=== PATIENT | female | born 1985 | race Caucasian/White ===

== ENCOUNTER → 2017-05-09 11:44 | Outpatient (CLI) | payer OTHER, BC, SELFPAY ==
--- NOTE | 2017-05-09 11:47 | RAD_ITS ---
STUDY: HYSTEROSALPINGOGRAM. REASON FOR EXAM: Female, 31 years old. Infertility. Prior right ectopic and surgical intervention. FLUOROSCOPY TIME (if supplied): (0:40) minutes/seconds TECHNIQUE: The construction or leak gang laborer performed a hysterosalpingogram. Contrast was injected. Imaging was obtained. COMPARISON: None. FINDINGS: The uterus is unremarkable. The left fallopian tube is widely patent with free spill. The proximal portion of the right fallopian tube is visualized although there is no spill. RAD/Salpingogram IMPRESSION: There is patency and spill of the left fallopian tube. Electronically Signed: Donta Graham MD at 14:11 EST Tel [phone], Service support ,
[2017-05-09 13:08] LABS: hCG Titer Quant., Serum < 1 mIU/mL (<9 non-preg)
== END ==
PROVIDERS: Visit Provider Obstetrics & Gynecology
DX: Z87.59 Personal history of other complications of pregnancy, childbirth and the puerperium (principal); N97.9 Female infertility, unspecified
CPT/HCPCS: 36415; 58340; 74740; 84702; Q9967

== ENCOUNTER → 2017-08-09 13:44 | Outpatient (CLI) | payer OTHER, BC, SELFPAY ==
[2017-08-14 12:08] LABS: HPV Reflexed? NOT INDICATED
== END ==
PROVIDERS: Visit Provider Obstetrics & Gynecology
DX: Z12.4 Encounter for screening for malignant neoplasm of cervix (principal); N39.0 Urinary tract infection, site not specified
CPT/HCPCS: 87086; 87088; 88175; G0145

== ENCOUNTER → 2018-12-08 11:43 | Outpatient (CLI) | payer BC, SELFPAY ==
[2017-01-10 06:25] VITALS: BMI 34.3
[2018-12-08 13:45] LABS: Thyroid Stim Hormone (TSH) 2.45 uIU/mL (0.358-3.74)
== END ==
PROVIDERS: Visit Provider Obstetrics & Gynecology
DX: O26.892 Other specified pregnancy related conditions, second trimester (principal); R00.0 Tachycardia, unspecified; Z3A.00 Weeks of gestation of pregnancy not specified
CPT/HCPCS: 36415; 84443

== ENCOUNTER → 2018-12-17 15:57 | Outpatient (CLI) | payer BC, OTHER, SELFPAY ==
[2017-01-10 06:25] VITALS: BMI 34.3
[2018-12-17 17:23] LABS: Hematocrit 37.1 % (37-47); Hemoglobin 12.7 g/dL (12.0-15.0); Mean Corp Hgb Conc 34.2 g/dL (32-36); Mean Corpuscular Hgb 31.3 pg (27.0-32.0); Mean Corpuscular Volume 91.4 fL (81-99); Mean Platelet Vol. 9.8 fl (6.2-12.0); Platelet Count 258 K/mm3 (150-450); RBC Distribution Width CV 13.1 % (11.6-14.6); RBC Distribution Width SD 43.4 fl (35.1-43.9); Red Blood Count 4.06 M/mm3 (4.2-5.4); White Blood Count 11.1 K/mm3 (4.4-11.0)
[2018-12-17 17:30] LABS: Glucose Challenge Gest 1H 50g 137 mg/dL (70-140)
== END ==
PROVIDERS: Visit Provider Obstetrics & Gynecology
DX: Z34.83 Encounter for supervision of other normal pregnancy, third trimester (principal)
CPT/HCPCS: 36415; 82950; 85027

== ENCOUNTER → 2019-01-14 12:50 | Outpatient (CLI) | payer OTHER, SELFPAY | PROVIDERS: Referring Provider Advanced Practice Midwife; Visit Provider Advanced Practice Midwife | DX: O26.893 Other specified pregnancy related conditions, third trimester (principal); I47.1 Supraventricular tachycardia; Z3A.00 Weeks of gestation of pregnancy not specified | CPT/HCPCS: 93225; 93226 ==

== ENCOUNTER 2019-01-20 20:05 | Outpatient (CLI) | payer OTHER, SELFPAY ==
[2019-01-20 20:25] VITALS: BMI 39.2
[2019-01-20 20:32] LABS: Mucous, Urine 0 SEEN /hpf (<or=2+); Red Blood Cells-Urine 0 SEEN /hpf (0-5)
[2019-01-20 20:37] LABS: Color, Urine Yellow (Yellow); Glucose, Dipstick Normal (Normal); Ketone-Dipstick Negative (Negative); Leukocyte Esterase-Dipstick 25 /ul (Negative); Nitrite-Dipstick Positive (Negative); Occult Blood-Urine Negative /ul (Negative); Protein-Dipstick Negative (Negative); Specific Gravity, Urine 1.015 (1.002-1.030); Urine Bilirubin Dipstick Negative (Negative); Urine Clarity Clear (Clear); Urine Urobilinogen Normal (Normal); Urine pH 6.5 (5.0 - 8.0)
[2019-01-20 20:42] LABS: Squamous Epithelial Cells - UA 0-5 SEEN /hpf (5-10); White Blood Cells 0-5 SEEN /hpf (0-5)
[2019-01-20 20:43] LABS: Bacteria RARE /hpf (None Seen)
[2019-01-20] MEDS: Ceftriaxone 1 GM/50 ML BAG IV (21:47)
[2019-01-20 21:58] LABS: Absolute Lymphocyte Count 2.73 X10^3/uL (0.83-4.51); Absolute Neutrophil Count 6.3 X10^3/uL (2.0-7.7); Basophil# 0.03 X10^3/uL; Basophil% 0.3 % (0-1); Eosinophil# 0.25 X10^3/uL; Eosinophils% 2.4 % (0-5); Hematocrit 37.6 % (37-47); Hemoglobin 13.2 g/dL (12.0-15.0); Lymphocyte # 2.73 X10^3/ul (4.0); Lymphocyte % 26.3 % (19-41); Mean Corp Hgb Conc 35.1 g/dL (32-36); Mean Platelet Vol. 9.6 fl (6.2-12.0); Monocyte# 0.95 X10^3/uL; Monocyte% 9.1 % (0-10); NRBC Flagged by Analyzer 0 % (0-5); Neutrophil # 6.32 X10^3/uL (2.7-7.7); Neutrophil % 60.8 % (47-70); Platelet Count 271 K/mm3 (150-450); RBC Distribution Width CV 12.7 % (11.6-14.6); RBC Distribution Width SD 41.8 fl (35.1-43.9); Red Blood Count 4.13 M/mm3 (4.2-5.4); White Blood Count 10.4 K/mm3 (4.4-11.0)
[2019-01-20 22:26] VITALS: BP 142/84; PULSE 98; RESP 16; TEMP 37.3
--- NOTE | 2019-01-23 09:06 | OB.TRI.NOTE ---
- Problem List (1) Acute cystitis Status: Resolved Qualifiers: Hematuria presence: without hematuria Qualified Code(s): N30.00 - Acute cystitis without hematuria (2) False labor before 37 completed weeks of gestation Status: Resolved Qualifiers: Trimester: third trimester Qualified Code(s): O47.03 - False labor before 37 completed weeks of gestation, third trimester History of Present Illness Date of Service: 01/20/19 Was patient seen by the physician?: Yes Reason For Visit: BACK PAIN Final BRIAN: 03/15/19 Gestational age: 34 Weeks and 4 Days History of Present Illness: 33yo @ 32 2/7wga with c/o cramping and back pain. Allergies vancomycin Allergy (Intermediate, Verified 01/28/19 11:10) Itching - Pertinent Past Medical History Medical History: Past Medical History (Last Reviewed 01/28/19 @ 12:01 by Robert De La Rosa MD) Palpitations (Acute) False labor before 37 completed weeks of gestation (Resolved) BRCA gene mutation positive Acute cystitis (Resolved) Surgical History: Past Surgical History (Last Reviewed 01/28/19 @ 12:01 by Robert De La Rosa MD) History of bilateral mastectomy with reconstruction @ age 23 History of open reduction and internal fixation (ORIF) procedure left clavicle and then removal of hardware at a later date History of salpingectomy right History of tonsillectomy Laboratory Studies: Laboratory Tests 01/20/19 01/20/19 Range/Units 21:16 20:20 WBC 10.4 (4.4-11.0) K/mm3 RBC 4.13 L (4.2-5.4) M/mm3 Hgb 13.2 (12.0-15.0) g/dL Hct 37.6 (37-47) % MCV 91.0 (81-99) fL MCH 32.0 (27.0-32.0) pg MCHC 35.1 (32-36) g/dL RDW Std Deviation 41.8 (35.1-43.9) fl RDW Coeff of Tae 12.7 (11.6-14.6) % Plt Count 271 (150-450) K/mm3 MPV 9.6 (6.2-12.0) fl Immature Gran % (Auto) 1.100 H (0.0-0.9) % Neut % (Auto) 60.8 (47-70) % Lymph % (Auto) 26.3 (19-41) % [place] % (Auto) 9.1 (0-10) % Eos % (Auto) 2.4 (0-5) % Baso % (Auto) 0.3 (0-1) % Absolute Neuts (auto) 6.3 (2.0-7.7) X10^3/uL Absolute Lymphs (auto) 2.73 (0.83-4.51) X10^3/uL Nucleated RBC % 0 (0-5) % Urine Color Yellow (Yellow) Urine Clarity Clear (Clear) Urine pH 6.5 (5.0 - 8.0) Ur Specific [place] 1.015 (1.002-1.030) Urine Protein Negative (Negative) mg/dl Urine Glucose (UA) Normal (Normal) mg/dl Urine Ketones Negative (Negative) mg/dl Urine Occult Blood Negative (Negative) /ul Urine Nitrite Positive H (Negative) Urine Bilirubin Negative (Negative) mg/dL Urine Urobilinogen Normal (Normal) mg/dl Ur Leukocyte Esterase 25 H (Negative) /ul Urine RBC 0 SEEN (0-5) /hpf Urine WBC 0-5 SEEN (0-5) /hpf Ur Squamous Epith Cells 0-5 SEEN (5-10) /hpf Urine Bacteria RARE (None Seen) /hpf Urine Mucus 0 SEEN (<or=2+) /hpf Review of Systems Constitutional: Denies: Chills, Fever Gastrointestinal: Denies: Nausea, Vomiting Physical Exam Vitals: Vital Signs Temp Pulse Resp BP 99.2 F H 98 16 142/84 H 01/20/19 22:26 01/20/19 22:26 01/20/19 22:26 01/20/19 22:26 General: Alert, Oriented x3, Cooperative, No apparent distress HEENT: Atraumatic, Normocephalic Cardiovascular: Regular Rhythm Abdomen: Soft, Non Tender, Non-Distended Neurological: Neuro grossly intact NST - FHR Rate Baby A Baseline: 135 Variability:: Moderate Accelerations:: 15 x 15 Decelerations:: None FHR Category:: Category I Uterine Activity:: irritability Impression/Plan UTI - Dx acute cystitis -Rx antibiotics -d/c home
== END 2019-01-20 22:40 | disposition home or self-care (01) ==
PROVIDERS: Visit Provider Obstetrics & Gynecology
DX: O23.13 Infections of bladder in pregnancy, third trimester (principal); O47.03 False labor before 37 completed weeks of gestation, third trimester; Z3A.32 32 weeks gestation of pregnancy
CPT/HCPCS: 96365; 36415; 59025; 59050; 81001; 85025; 87086; 87088; 99218; J7040; G0378

== ENCOUNTER → 2019-02-10 13:44 | Outpatient (CLI) | payer OTHER, SELFPAY ==
[2019-01-28 11:10] VITALS: BMI 39.2
--- NOTE | 2019-02-10 13:47 | ECHOD_ITS ---
Reason For Study: Palpitations Procedure This was a 2D Doppler, Color Flow transthoracic echocardiogram. Unable to utilize Definity. Patient is 35 weeks . Exam performed in department. Left Ventricle Normal size and thickness. The estimated ejection fraction is 55 %. No evidence for diastolic dysfunction. No regional wall motion abnormalities noted. Right Ventricle Normal RV size. Normal systolic function. Atria Normal left atrium. Normal right atrium. No doppler evidence for ASD. Mitral Valve There is no mitral valve stenosis. No mitral valve insufficiency. Tricuspid Valve There is no tricuspid stenosis. Trivial tricuspid valve insufficiency. Normal pulmonary artery pressure. Aortic Valve Trisinus/trileaflet aortic valve. There is no aortic stenosis. Trivial aortic valve insufficiency. Pulmonic Valve There is no pulmonic valvular stenosis. Trivial pulmonic valve insufficiency. Great Vessels Normal aortic root. Pericardium/Pleural No pericardial effusion. MMode/2D Measurements & Calculations LVIDd: 4.0 cm IVSd: 1.3 cm LA dimension: 3.6 cm LVIDs: 2.7 cm LVPWd: 0.90 cm RVDd: 3.8 cm FS: 32.5 % LAV(MOD-bp): 44.6 ml LA A4 area: 16.0 cm2 RA A4 area: 13.5 cm2 LAV(MOD-bp) Indexed: 19.6 ml/m2 LAV(MOD-sp2): 44.2 ml LAV(MOD-sp4): 41.2 ml Time Measurements MV dec time: 0.25 sec Doppler Measurements & Calculations MV E max dick: 64.7 cm/sec Lat Peak E' Dick: 7.7 cm/sec Med Peak E' Dick: 6.3 cm/sec MV A max dick: 77.0 cm/sec E/E' lat: 8.4 E/E' med: 10.2 MV E/A: 0.84 MV V2 max: 87.4 cm/sec MV P1/2t max dick: 79.3 cm/sec Ao V2 max: 101.8 cm/sec MV max P.1 mmHg MV P1/2t: 85.6 msec Ao max P.1 mmHg MV V2 mean: 52.9 cm/sec MV dec slope: 271.3 cm/sec2 MV mean P.3 mmHg MVA(P1/2t): 2.6 cm2 MV V2 VTI: 21.3 cm LV V1 max: 103.0 cm/sec PA V2 max: 88.6 cm/sec PI end-d dick: 120.4 cm/sec LV V1 max P.2 mmHg TR max dick: 214.3 cm/sec TR max P.4 mmHg Interpretation Summary The estimated ejection fraction is 55 %. No evidence for diastolic dysfunction. Trivial aortic valve insufficiency. Ordering Physician: Robert De La Rosa Referring Physician: Robert De La Rosa Performed By: Carlos A Scott RCS
[2019-02-10 15:58] LABS: Glucose Challenge Gest 1H 50g 119 mg/dL (70-140)
== END ==
LOC: CVS 13:47 → WOBLAB 15:23
PROVIDERS: Referring Provider Specialist; Visit Provider Obstetrics & Gynecology
DX: O26.893 Other specified pregnancy related conditions, third trimester (principal); R00.2 Palpitations; Z3A.00 Weeks of gestation of pregnancy not specified
CPT/HCPCS: 36415; 82950; 93306

== ENCOUNTER → 2019-02-19 15:02 | Outpatient (CLI) | payer OTHER, SELFPAY ==
[2019-02-11 14:34] VITALS: BMI 39.2
== END ==
PROVIDERS: Visit Provider Obstetrics & Gynecology
DX: Z36.85 Encounter for antenatal screening for Streptococcus B (principal)
CPT/HCPCS: 87081

== ENCOUNTER 2019-02-28 11:05 | Observation (INO) | payer OTHER, SELFPAY ==
[2019-02-11 14:34] VITALS: BMI 39.2
[2019-02-28 02:11] VITALS: BMI 40.1
--- NOTE | 2019-02-28 02:53 | OB.TRI.NOTE ---
History of Present Illness Date of Service: 02/28/19 Was patient seen by the physician?: Yes Reason For Visit: R/O LABOR Date of Service: 02/28/19 Final BRIAN: 03/15/19 Final BRIAN Source: US <20 weeks Gestational age: 37 Weeks and 6 Days History of Present Illness: Pt is a 33yo at 37w6d gestation by L=10w5d US who states she woke up around midnight with sharp pain in her upper right side, so painful that she could not walk or breathe deeply; she further states that she is not feeling the baby move as much as she is accustomed to feeling; when pt arrived at hospital she began to feel painful contractions that she rates 7-8/10; she no longer feels the sharp r-sided pain, but abdomen is mildly tender in that area; this is significant for hx of embryo transfer, anterior placenta, polyhydramnios, AGA, and L renal pyelectasis; she has been seeing MFM regularly and surveillance in 3rd trimester has shown reactive NSTs and BPPs /8, the most recent of which was performed on 02/26/2019; during this she experienced cardiac palpitations. A holter evaluation was equivocal, and a cardiac echo showed EF 55% and trivial aortic insufficiency; pt is positive for BRCA2 and underwent a bilateral mastectomy with reconstruction 10 years ago. Allergies vancomycin Allergy (Intermediate, Verified 02/28/19 02:13) Hives - Pertinent Past Medical History Medical History: Past Medical History (Last Reviewed 02/11/19 @ 15:14 by Robert De La Rosa MD) Palpitations (Acute) False labor before 37 completed weeks of gestation (Resolved) BRCA gene mutation positive Acute cystitis (Resolved) Surgical History: Past Surgical History (Last Reviewed 02/11/19 @ 15:14 by Robert De La Rosa MD) History of bilateral mastectomy with reconstruction @ age 23 History of open reduction and internal fixation (ORIF) procedure left clavicle and then removal of hardware at a later date History of salpingectomy right History of tonsillectomy Pertinent Past Medical History: History of cardiac palpitations with this , holter monitor evaluation equivocal, cardiac echo results = ef 55%, and trivial arotic valve insufficiency, otherwise WNL: Physical Exam General: Alert, Oriented x3, Cooperative HEENT: PERRLA, EOMI Cardiovascular: Regular rate, Regular Rhythm Lungs: Clear to auscultation, Normal air movement Abdomen: Bowel Sounds Present, Soft, Non Tender, Passing Flatus, Gravid, Distended - Polyhydramnios, Tender Neurological: Cranial nerves II-XII grossly intact, Deep Tendon Reflexes 2+/4 and Symmetrical Estimated gestational size: Large for gestational age Presentation: Cephalic Cervix Dilation (cm): 2 Station: -3 Effacement (%): 50 NST - FHR Rate Baby A Baseline: 145 Variability:: Moderate Accelerations:: 15 x 15 Decelerations:: None NST Reactive:: Yes, Appropriate for gestational age FHR Category:: Category I Uterine Activity:: Q 2-4 Impression/Plan Impression: 33yo at 37w6d gestation by 10w5d US R/o labor Hx of embryo transfer w/this Polyhydramnios L renal pyelectasis Maternal hx cardiac palpitations, holter equivocal, cardiac echo reassuring GBS negative Cat 1 FHTs Plan: Notified Dr. Hardy of pts arrival PO hydration Continuous EFM Recheck cervix in 2-3 hours Notify pediatrics if pt is ruled in for labor Dr. Hardy to manage if ruled in for labor
[2019-02-28] MEDS: Acetaminophen 500 MG Tablet 1000 MG PO (04:01)
[2019-02-28] MEDS: morphine 10 MG/ML Syringe 5 MG IM (06:21)
[2019-02-28] MEDS: morphine 10 MG/ML Syringe 5 MG IV (06:22)
[2019-02-28 06:56] LABS: Absolute Lymphocyte Count 2.53 X10^3/uL (0.83-4.51); Absolute Neutrophil Count 8.1 X10^3/uL (2.0-7.7); Basophil# 0.04 X10^3/uL; Basophil% 0.3 % (0-1); Eosinophil# 0.24 X10^3/uL; Hematocrit 38.9 % (37-47); Hemoglobin 13.7 g/dL (12.0-15.0); Lymphocyte # 2.53 X10^3/ul (4.0); Lymphocyte % 21.5 % (19-41); Mean Corp Hgb Conc 35.2 g/dL (32-36); Mean Corpuscular Hgb 31.8 pg (27.0-32.0); Mean Corpuscular Volume 90.3 fL (81-99); Monocyte# 0.81 X10^3/uL; Monocyte% 6.9 % (0-10); NRBC Flagged by Analyzer 0 % (0-5); Neutrophil # 8.05 X10^3/uL (2.7-7.7); Neutrophil % 68.6 % (47-70); Platelet Count 292 K/mm3 (150-450); RBC Distribution Width CV 12.7 % (11.6-14.6); RBC Distribution Width SD 41.8 fl (35.1-43.9); Red Blood Count 4.31 M/mm3 (4.2-5.4); White Blood Count 11.8 K/mm3 (4.4-11.0)
--- NOTE | 2019-02-28 07:35 | PCM.PN.BLA ---
Progress Note PROGRESS NOTE -- 37 6/7 wk EGA by first trimester sono. V5C2WM2 , CHAPITO . Arrived approx 0130 am for CC of pain in RUQ and of dec movement, evaluation of labor. Reviewed EFM and contraction pattern approx 5:30 am. EFM 130-140s avg variability. Accels. Category I tracing UCs q 2-4 mins Minimal change as of last cervix check. 0502 CX: 2/50/-3 A/P: 33yo at 37w6d gestation by 10w5d US Hx of embryo transfer w/this Polyhydramnios L renal pyelectasis Maternal hx cardiac palpitations, holter equivocal, cardiac echo reassuring GBS negative Prodromal labor vs false labor with continued UCs no cervix change. Offered: 1.) IV to S/L and lab draw in case true labor. +/- Pain med to allow rest. Will either awake in more active labor or remain unchanged after rest Morphine sulfate 5 mg IM and 5 mg IV times one. 2.) May continue observation only without IV/IM pain meds or S/L start. 3.) May go home and return if more uncomfortable. Patient elected to try IV/IM pain meds for rest , and have labs sent. Will recheck cervix if patient awake, uncomfortable within 2-3 hrs otherwise allow rest until patient awakes, then recheck
--- NOTE | 2019-02-28 08:50 | PN.OBGYN_ITS ---
Subjective: This is a late entry for February 29 2016, 0525 Per RN, pt continues to experience frequent, painful contractions; bedside and supportive Objective: AVSS FHTs: 145 baseline, moderate variability, with accels, no decels UCs: Q 12-3 Cervix: Minimal change per RN - Physical Exam Vitals/I&O's: Weight: 264 lb 1.82 oz Body Mass Index (BMI) 40.1 Laboratory Results 02/28/19 06:20: WBC 11.8 H, RBC 4.31, Hgb 13.7, Hct 38.9, MCV 90.3, MCH 31.8, MCHC 35.2, RDW Std Deviation 41.8, RDW Coeff of Tae 12.7, Plt Count 292, MPV 10.0, Immature Gran % (Auto) 0.700, Neut % (Auto) 68.6, Lymph % (Auto) 21.5, [place] % (Auto) 6.9, Eos % (Auto) 2.0, Baso % (Auto) 0.3, Absolute Neuts (auto) 8.1 H, Absolute Lymphs (auto) 2.53, Nucleated RBC % 0 Medical Necessity - Tobacco Use Smoking Status: Never smoker Assessment/Plan All Active Problems (Last Reviewed 02/11/19 @ 15:14 by Robert De La Rosa MD) Palpitations (Acute) False labor before 37 completed weeks of gestation (Resolved) Acute cystitis (Resolved) Assessment:Impression: 33yo at 37w6d gestation by 10w5d US R/o labor Hx of embryo transfer w/this Polyhydramnios L renal pyelectasis Maternal hx cardiac palpitations, holter equivocal, cardiac echo reassuring GBS negative Cat 1 FHTs Plan: Care assumed by Dr. Hardy IV saline lock Admission labs for potential of admission
[2019-02-28] MEDS: Ondansetron 4 MG/2 ML Vial IV (09:53)
[2019-02-28] MEDS: Lactated Ringers 1,000 ML 50 ML IV (11:00)
--- NOTE | 2019-02-28 11:11 | HP.PCM_ITS ---
History and Physical Date of Admission: 02/28/19 OB HISTORY AND PHYSICAL EXAMINATION History of this : 33 yo female Ab1 with EDC 03/15/2019 by Ultrasound, presents to Labor and Delivery early this am with CC of UCs, painful in RUQ and decreased movement. 37 6/7 wk with LGA fetus, Polyhydramnios (resolved) Continued observation for contractions with trial of IV and IM narcotic for rest during prodromal labor. States not able to rest, and no sleep since prior to 8 am 02/27/19. With continued observation, minimal change of cervix from 2 cm to now 3 cm/65% noted. BBOW noted with exam during UC per RN. Will admit for labor. care remarkable for - Blood Type - A POSITIVE Rubella - IMMUNE 08/22/18 1.) Polyhydramnios (resolved, last NEPTALI 12 cm) and LGA per MFM -- weekly BPP; Growth q 4 weeks with MFM 2.) BRCA 2+, bilateral mastectomy with reconstruction age 23, 3.) Prior ectopic 4.) Stress level 5/5, due to job 5.) Aunt born with cleft lip, Two 1st cousins with Autism 6.) achieved with IVF - Embryo Transfer Genetic testing performed at [facility]; declined msAFP 7.) L renal pyelectasis, last measurement 8.7 mm 02/19/19 with MFM Pertinent Past Medical History: Breast/Ovarian/Colon Cancers - Paternal Grandmother had Breast Cancer approximately age 60-70 and Paternal Grandmother had Uterine Cancer approximately age 60-70 Infections - Chicken pox Illnesses - BRAC2 carrier, Accidents - None History of Abnormal PAPS - Denies Hospitalizations - see surgery SURGICAL HISTORY: 1. HSG 04/2017 2. 2003 (L) Clavicle Surgery 3. 2009 Bilateral Mastectomy w/Reconstruction 4. 2013 RS 5. 01/10/2017 Suction D and C, Dx lap, linear left salpingostomy and Removal of ectopic Jose Crowley M.D. 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 no gush of fluid. PHYSICAL EXAMINATION General Appearance: 33 yo female in no acute distress Vital Signs: AF, VSS Lungs: Regular respiratory rate, rhythm Breasts: deferred Abdomen: gravid Cervix: 3/65/-2 Presentation: cephalic Size: LGA approx 9# Movement: present Heart: present Category I tracing. UCs q 1-3 mins. Impression /Plan: Intrauterine . 37 6/7 wk LGA fetus. Prodromal labor with progress noted and continued , regular UCs despite attempt at rest.. hydronephrosis. Admit for labor and delivery. Plans epidural for labor and to allow rest. Begin IV hydration for epidural. If contractions improve with IV hydration, will discharge home. Patient seen and examined at time of this note. See progress notes for additional changes Genie Hardy MD 02/28/19 1128
== END 2019-02-28 16:30 | disposition home or self-care (01) ==
LOC: WPOUT 11:06 → WP 03-02 09:59
PROVIDERS: Admitting Provider Obstetrics & Gynecology; Referring Provider Obstetrics & Gynecology; Visit Provider Obstetrics & Gynecology
DX: O62.9 Abnormality of forces of labor, unspecified (principal); Z3A.37 37 weeks gestation of pregnancy; O35.8XX0 Maternal care for other (suspected) fetal abnormality and damage, not applicable or unspecified; O40.3XX0 Polyhydramnios, third trimester, not applicable or unspecified; O36.8130 Decreased fetal movements, third trimester, not applicable or unspecified; O36.63X0 Maternal care for excessive fetal growth, third trimester, not applicable or unspecified
CPT/HCPCS: 96374; 96375; 59025; 59050; 85025; 86850; 86900; 86901; 96372; 99218; J7120; G0378; J2405

== ENCOUNTER 2019-03-01 16:30 | Inpatient (IN) | payer OTHER, SELFPAY ==
[2019-01-28 11:10] VITALS: BMI 39.2
[2019-02-28 02:11] VITALS: BMI 40.1
[2019-03-01 17:04] VITALS: BMI 40.3
[2019-03-01 17:42] LABS: ROM Internal Control Test YES-OK TO RESULT pt. (Internal QC)
[2019-03-01 17:43] LABS: ROM Patient Test POSITIVE (Negative)
[2019-03-01] MEDS: Lactated Ringers 1,000 ML 50 ML IV (18:11)
--- NOTE | 2019-03-01 18:20 | PCM.HPOB.BLA ---
History and Physical Date of Admission: 03/01/19 OB HISTORY AND PHYSICAL EXAMINATION History of this : 33 yo female Ab1 with EDC 03/15/2019 by Ultrasound, presents to Labor and Delivery early this am with CC of possible SROM this afternoon at 3:30 pm. Also with continued UCs, painful in lower abdomen now. 38 wk with LGA fetus, Polyhydramnios (resolved) ROM test POSITIVE. care remarkable for - Blood Type - A POSITIVE Rubella - IMMUNE 08/22/18 1.) Polyhydramnios (resolved, last NEPTALI 12 cm) and LGA per MFM -- weekly BPP; Growth q 4 weeks with MFM 2.) BRCA 2+, bilateral mastectomy with reconstruction age 23, 3.) Prior ectopic 4.) Stress level 5/5, due to job 5.) Aunt born with cleft lip, Two 1st cousins with Autism 6.) achieved with IVF - Embryo Transfer Genetic testing performed at [facility]; declined msAFP 7.) L renal pyelectasis, last measurement 8.7 mm 02/19/19 with MFM Pertinent Past Medical History: Breast/Ovarian/Colon Cancers - Paternal Grandmother had Breast Cancer approximately age 60-70 and Paternal Grandmother had Uterine Cancer approximately age 60-70 Infections - Chicken pox Illnesses - BRAC2 carrier, Accidents - None History of Abnormal PAPS - Denies Hospitalizations - see surgery SURGICAL HISTORY: 1. HSG 04/2017 2. 2003 (L) Clavicle Surgery 3. 2009 Bilateral Mastectomy w/Reconstruction 4. 2013 RS 5. 01/10/2017 Suction D and C, Dx lap, linear left salpingostomy and Removal of ectopic Jose Crowley M.D. 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 no gush of fluid. PHYSICAL EXAMINATION General Appearance: 33 yo female in no acute distress Vital Signs: AF, VSS Lungs: Regular respiratory rate, rhythm Breasts: deferred Abdomen: gravid Cervix: 3/60/-3 Presentation: cephalic Size: LGA approx 9# Movement: present Heart: present 130-150s avg variability , accels. Occasional early decel Category I tracing. UCs irregular, q 4-11 mins. Impression /Plan: Intrauterine . 38 wk EGA + SROM. Admitted in early labor with LGA fetus. Epidural placed per pt request 2/2 pain Position changes, Iqbal when comfortable w/ recheck cervix. Consider IUPC as no change from prior observation other than +ROM. Consider pitocin prn.
[2019-03-01] MEDS: Lactated Ringers 500 ML 999 ML IV (18:23)
[2019-03-01] MEDS: Nalbuphine 10 MG/ML Ampul IV (18:29)
[2019-03-01 18:30] LABS: Absolute Lymphocyte Count 1.93 X10^3/uL (0.83-4.51); Absolute Neutrophil Count 8.2 X10^3/uL (2.0-7.7); Basophil# 0.03 X10^3/uL; Basophil% 0.3 % (0-1); Eosinophil# 0.14 X10^3/uL; Eosinophils% 1.2 % (0-5); Hematocrit 40.1 % (37-47); Hemoglobin 14.2 g/dL (12.0-15.0); Lymphocyte # 1.93 X10^3/ul (4.0); Lymphocyte % 17.2 % (19-41); Mean Corp Hgb Conc 35.4 g/dL (32-36); Mean Corpuscular Hgb 31.8 pg (27.0-32.0); Mean Corpuscular Volume 89.9 fL (81-99); Mean Platelet Vol. 9.9 fl (6.2-12.0); Monocyte# 0.89 X10^3/uL; Monocyte% 7.9 % (0-10); NRBC Flagged by Analyzer 0 % (0-5); Neutrophil # 8.19 X10^3/uL (2.7-7.7); Neutrophil % 72.9 % (47-70); Platelet Count 309 K/mm3 (150-450); RBC Distribution Width CV 12.6 % (11.6-14.6); RBC Distribution Width SD 41.6 fl (35.1-43.9); Red Blood Count 4.46 M/mm3 (4.2-5.4); White Blood Count 11.2 K/mm3 (4.4-11.0)
[2019-03-01] MEDS: fentaNYL-bupivacaine (epidural) 100 ML BAG EPIDURAL (20:02)
[2019-03-01] MEDS: 0.9% Saline Lock 10 ML Syringe IV (22:08)
[2019-03-01] MEDS: Ondansetron 4 MG/2 ML Vial IV (22:08)
[2019-03-02] VITALS (15 sets, daily range): BP systolic 112–134; BP diastolic 58–75; PULSE 111–130; RESP 18–20; TEMP 36.9–37.6; O2SAT 96–100
[2019-03-02] MEDS: Lactated Ringers 1,000 ML 200 ML IV ×2 (00:10→06:08)
[2019-03-02] MEDS: fentaNYL-bupivacaine (epidural) 100 ML BAG EPIDURAL ×2 (00:10→05:25)
--- NOTE | 2019-03-02 00:59 | PCM.PN.BLA ---
Progress Note LABOR PROGRESS NOTE Epidural in place AVSS No pitocin IFM: 140s - 150s avg variability accels noted UCs q 2-5 mins. CX: /-2 per RN last check. A/P 38 1/7 wk EGA SROM Spontaneous labor. Continue labor Anticipate . Adequate progress from /-2 on admission.
[2019-03-02] MEDS: proCHLORPERazine 10 MG/2 ML Vial IV (01:54)
[2019-03-02] MEDS: 0.9% Saline Lock 10 ML Syringe IV (01:54)
[2019-03-02] MEDS: Oxytocin 30 units/NS 500 ml 30 UNITS/500 ML IV.SOLN IV (04:07)
[2019-03-02] MEDS: Lactated Ringers 500 ML 999 ML IV (04:33)
[2019-03-02] MEDS: Acetaminophen 325 MG Tablet PO (06:06)
[2019-03-02] MEDS: Amnioinfusion- 0.9% NS 1,000 ML IV.SOLN. 1000 ML INTRA-UTER (08:09)
--- NOTE | 2019-03-02 08:48 | PCM.PN.BLA ---
Progress Note LABOR PROGRESS Pt with low grade fever now. tachycardia 170-180s Tylenol given and conitnued temp IFM: 170-180s with small accels good variability Variables to 90-120s with UCs and with pushing most under 1 min duration. UCs appear inadequate by mVUs. A/P: 38 wk Labor after SROM. Progressed to complete and pushing. tachy, maternal temp Suspected triple I Ampicillin IV Gentamicin Continue pushing if tolerance of labor.
[2019-03-02] MEDS: Sodium Citrate/Citric Acid 30 ML UDC PO (09:37)
[2019-03-02] MEDS: miSOPROStol 200 MCG Tablet 1000 MCG RECTAL (10:49)
--- NOTE | 2019-03-02 11:04 | PLAC_PTH ---
PATIENT: GUERO CASTORENA LOC: WP U#:[id number] AGE/SX: 33/F ROOM: WP007 RE03/01/[address]: Dr. Letty Hardy MD : 1985 BED: 1 DIS: 03/05/2019 SPEC #: [id number] RECD: 03/02/19 11:53 STATUS: PARVEEN PERALTA #: [id number] IRVING: 03/02/19 11:[address]: Letty Hardy DEPT: SURGICAL PATHOLOGY RECD BY: Héctor Kim ENTERED: 03/02/19 11:56 SP TYPE: PLACENTA OTHR DR: No Primary Care Phys Tissues: Placenta, NOS Procedures: Surgery Specimen Level V HEADER OPERATION: Primary section PRE-OP DIAGNOSIS: Studies at [facility] TISSUE SUBMITTED: Placenta MICROSCOPIC DIAGNOSIS Placenta: Placental disc - third trimester placenta (613 gm). - Focal mild acute vasculitis of subamniotic blood vessels. Membranes - Moderate acute chorioamnionitis. Umbilical cord - three blood vessels and mild acute funisitis. SJ:david 03/04/19 MICROSCOPIC DESCRIPTION Slides are reviewed. GROSS DESCRIPTION SPECIMEN: PLACENTA / CLINICAL INFORMATION: A. Weight: 3.555 kg B. Gestational Age: 38 weeks C. Sex: Female PLACENTAL WEIGHT (POST FIXATION): 613 gm PLACENTAL DIMENSIONS: 18 x 17 x 3.5 cm PLACENTAL SHAPE: Usual ovoid PLACENTAL WEIGHT FOR GESTATIONAL AGE: Within >99th percentile MEMBRANES - Present A. Insertion: Marginal B. Site of rupture from edge: 4.5 cm from edge of placental disc C. Color of membrane: Fletcher-schmitt D. Abnormalities: None UMBILICAL CORD - Present A. Color: Fletcher-schmitt B. Insertion: Eccentric C. Length: 51 cm D. Diameter: 1.7 cm E. Number of vessels: Three F. Abnormalities: None PLACENTAL DISC - Present A. Color of surface: Fletcher-schmitt B. surface abnormalities: None C. Maternal cotyledons: Intact with minimal tears D. Attached retro placental clot: No clot E. Cut surface: Dark red and spongy F. Lesions: None G. Separate clot: Absent SECTIONS SUBMITTED: 1. Umbilical cord ( end inked) 2. Membrane roll 3. Placental disc, and maternal surfaces 4. Placental disc, and maternal surfaces 5. Placental disc, and maternal surfaces AM:david 03/03/19 TC:2 CPT: 16221
[2019-03-02] MEDS: Oxytocin 30 units/NS 500 ml 30 UNITS/500 ML IV.SOLN 167 UNITS IV (11:05)
--- NOTE | 2019-03-02 11:58 | OP.PCM_ITS ---
Delivery Classification: LAURENCE Final BRIAN: 03/15/19 Gestational age: 38 Weeks and 1 Days Type of Anesthesia:: Epidural Date of Procedure: 03/02/19 Pre-Operative Diagnosis: 38 1/7 wk SROM. intolerance of labor Post-Operative Diagnosis: Same, Deep variables, tachycardia. Maternal temp. suspected triple I Indications: As above. Indications for : Nonreassuring Status - Maternal fever, tachycardia, repetitive deep variables. Suspected triple I Description of Procedure: Findings: At amniotomy, clear fluid was noted. [place] viable female in vertex presentation direct OP and deeply wedged into maternal pelvis. Apgars 8/9, Baby weight: 8# 2 oz There was a normal appearing uterus, fallopian tubes and ovaries bilaterally. PATH: Placenta to path. Narrative account: After the risks, benefits and alternatives of the procedure were reviewed with the patient, informed consent was obtained. The patient was taken to the Operating room with an IV running, a Iqbal catheter in place and epidural catheter in place. The epidural was dosed to surgical levels. She was briefly frog-legged for vaginal vault prep and removal of the scalp electrode, and then repositioned to dorsal supine position with leftward displacement of the uterus, and prepped and draped in the usual sterile fashion. Once the epidural was deemed adequate, a Pfannenstiel skin incision was created using the knife . The incision was carried down to the rectus fascia using the knife. The fascia was nicked in the midline. The fascial incision was extended bilaterally using curved Reyes scissors. The superior aspect of the fascial incision was grasped with Andrez clamps and tented up and the underlying rectus abdominal muscles were dissected free. In a similar manner, the inferior aspect of the facial incision was grasped with Andrez clamps tented up and the underlying rectus abdominal muscles were dissected free. The rectus abdominis muscles were in the midline and the peritoneum was identified and entered by blunt dissection high in the incision. The peritoneum was stretched laterally and a bladder blade was inserted. A bladder flap was created along the lower uterine segment with Metzenbaum scissors . The uterine incision was then created using Metzenbaum scissors. The operators fingertips were used to extend the uterine incision by blunt dissection in a caudad- cephalad orientation . Clear fluid was noted at a mniotomy. The vertex was then delivered atraumatically through the incision. The vtx was in direct OP position and wedged into the maternal pelvis. The shoulders delivered easily . The cord clamped x two and cut. And the was handed off to the nurse awaiting delivery after briefly showing her to her parents. The baby had good tone. The placenta was then delivered. The uterus was enlarged and could not be delivered through the skin incision It was repaired in situ. The uterus was cleared of clots and debris. The uterine incision was repaired with 1 Vicryl in a running locked fashion. A second imbricating layer was then placed, using 1 Monocryl in running nonlocked fashion. Bovie cautery was used to treat any bleeding areas, and several interrupted and horizontal mattress stitches of 1 Vicryl for hemostasis also . Excellent hemostasis was noted. The gutters were cleared of clots and debris and the incision at the uterus was inspected. Antonella was applied along the entire incision for continued hemostasis. Excellent hemostasis was noted. The peritoneal edges were reapproximated in the midline with a continuous suture of 1 Vicryl. The muscles layer was then reapproximated with several vertical mattress stitches of 1 Vicryl. Excellent hemostasis was noted at the subfascial space Antonella was dusted over this layer. The fascia was closed in a running nonlocked fashion with a Stratofix. The Subcutaneous fatty tissue was Bovie cauterized as needed for hemostasis. Antonella was liberally dusted at this layer to prevent seroma formation. This layer was then reapproximated in a two layer closure of running 3-0 Vicryl to eliminate space. The skin edges were closed in a Subcuticular stitch of 4-0 Monocryl. The incision was cleansed. Cavilon, Steristrips, and Mepilex dressing were applied to the skin . The patient was then transferred to the recovery room bed in stable condition after tolerating the procedure well. Sponge, lap, needle and instrument counts correct times two. Medications given preop and intraoperatively included: Ancef 3 gm given senior consumer insights consultant to the operating room, and Azithromycin 500 mg IV times one. pt received Ampicillin and Gentamicin for fever in labor, suspected triple I. The patient also received Pitocin given IV after cord clamp, and Toradol 30 mg IV times one. Cytotec 1000 mcg HI times one. For a complete listing of medications given preop and intraoperatively, please see the anesthesia record. Amniotic Membrane Rupture Type: Artificial Amniotic Fluid Description: Clear Placenta Disposition: Sent to Pathology Specimen(s) sent to pathology: placenta Drain: Iqbal to straight drain Fluids Replaced: LR Cord Entanglement: None Cord Vessel Description: 3 Vessels Esitmated Blood Loss (ml): 1000 cc Gender: Female (1 minute): 8 (5 minute): 9 Delayed cord clamping: No Antibiotic Given: Ancef 3 grams IV x1, Clindamycin 600mg IV x1 and Gentamicin 1.5mg/kg IV x1 - (in labor after maternal temp), Zithromax 500 mg/5 mL X1 Pt instructed on risks of surgery: Bleeding, Anesthesia Risks, Infection Complications: None - Admit VTE Documentation VTE Present on Admission: No VTE Mechan Device Prophylaxis: SCD's VTE Pharm Prophylaxis ordered?: Yes
--- NOTE | 2019-03-02 12:09 | DCINST_ITS ---
Discharge Diet: No Restrictions Discharge Activity: May not drive while taking narcotic pain medications., May Shower, May Take a Tub Bath Return to work on:: 04/27/19 May resume sexual activity in: 4-6 weeks Lifting Restrictions: 20 pounds Additional Activity Instructions:: Nothing in the vagina for 4-6 weeks. You may return to work/school in 6 weeks. Change Dressing in (Days):: 14 Remove Dressing in (days):: 14 Cleanse incision/area with: Soap & Water, Keep Dressing Clean & Dry Additional Instructions: If you experience any of the following, contact your healthcare provider. * Bleeding that soaks a pad every hour for 2 hours * Fever 100.4 or higher * Unrelieved incision or abdominal pain * Swelling, redness, discharge or bleeding from your incision or episiotomy site * Your incision begins to separate * Problems urinating (including inability to urinate or burning while urinating). * Visual changes * Severe headache * Flu-like symptoms * Pain or redness in one of both of your breasts * Pain, warmth, tenderness or swelling in your legs, especially the calf area * Frequent nausea and vomiting * Symptoms of depression or anxiety If you experience any of the following, call 911 or go to the nearest Emergency Room. * Chest pain * Problems breathing * Seizure activity * Partial or complete paralysis of a body part, slurred speech, weakness or drooping of the face, or a sudden inability to walk or hold your balance Allergies/Adverse Reactions: Allergies vancomycin Allergy (Intermediate, Verified 03/01/19 17:05) Hives Medications to take at Discharge vitamin,calcium,gwqtiaub-nxua-mgeqj acid tablet 1 tab PO QHS 01/28/19 Docusate Sodium [Colace] 100 mg PO BID PRN PRN #60 cap 03/02/19 Oxycodone [Oxyir] 5 mg PO Q6H PRN PRN 7 Days #20 tab 03/02/19 The following prescriptions were given: Docusate Sodium [Colace] 100 mg PO BID PRN PRN #60 cap PRN Reason: Constipation Transmission Status: Received by [facility] #[id number] Oxycodone [Oxyir] 5 mg PO Q6H PRN PRN 7 Days #20 tab PRN Reason: Pain Score 6-01/22 Transmission Status: Received by [facility] #[id number] Follow-Up: Call to make an appointment with your doctor for an incision check in 1-2 weeks. You will also need a 6 week post- follow up appointment. Test results from this visit will be discussed in further detail at your follow- up appointment, if applicable. Please Follow Up With: Letty Hardy MD - [phone] When: Call to make an appointment for an incision check in 2 weeks. Primary Care Physician: Care Physician,No Primary [Primary Care Provider] - Proposed Discharge Date: 03/05/19
--- NOTE | 2019-03-02 12:09 | PCM.DCCSEC ---
Discharge Diet: No Restrictions Discharge Activity: May not drive while taking narcotic pain medications., May Shower, May Take a Tub Bath Return to work on:: 04/27/19 May resume sexual activity in: 4-6 weeks Lifting Restrictions: 20 pounds Additional Activity Instructions:: Nothing in the vagina for 4-6 weeks. You may return to work/school in 6 weeks. Change Dressing in (Days):: 14 Remove Dressing in (days):: 14 Cleanse incision/area with: Soap & Water, Keep Dressing Clean & Dry Additional Instructions: If you experience any of the following, contact your healthcare provider. Bleeding that soaks a pad every hour for 2 hours Fever 100.4 or higher Unrelieved incision or abdominal pain Swelling, redness, discharge or bleeding from your incision or episiotomy site Your incision begins to separate Problems urinating (including inability to urinate or burning while urinating). Visual changes Severe headache Flu-like symptoms Pain or redness in one of both of your breasts Pain, warmth, tenderness or swelling in your legs, especially the calf area Frequent nausea and vomiting Symptoms of depression or anxiety If you experience any of the following, call 911 or go to the nearest Emergency Room. Chest pain Problems breathing Seizure activity Partial or complete paralysis of a body part, slurred speech, weakness or drooping of the face, or a sudden inability to walk or hold your balance Allergies/Adverse Reactions: Allergies vancomycin Allergy (Intermediate, Verified 03/01/19 17:05) Hives Medications to take at Discharge vitamin,calcium,sorzbsem-fwyy-hgpli acid tablet 1 tab PO QHS 01/28/19 Docusate Sodium [Colace] 100 mg PO BID PRN PRN #60 cap 03/02/19 Oxycodone [Oxyir] 5 mg PO Q6H PRN PRN 7 Days #20 tab 03/02/19 The following prescriptions were given: Docusate Sodium [Colace] 100 mg PO BID PRN PRN #60 cap PRN Reason: Constipation Transmission Status: Received by [email or web address] #[id number] Oxycodone [Oxyir] 5 mg PO Q6H PRN PRN 7 Days #20 tab PRN Reason: Pain Score 6-10/10 Transmission Status: Received by [email or web address] #[email or web address] Follow-Up: Call to make an appointment with your doctor for an incision check in 1-2 weeks. You will also need a 6 week post- follow up appointment. Test results from this visit will be discussed in further detail at your follow-up appointment, if applicable. Please Follow Up With: Letty Hardy MD - [phone] When: Call to make an appointment for an incision check in 2 weeks. Primary Care Physician: Care Physician,No Primary [Primary Care Provider] - Proposed Discharge Date: 03/05/19
[2019-03-02] MEDS: Lactated Ringers 1,000 ML 100 ML IV ×2 (12:21→22:27)
[2019-03-02] MEDS: Ketorolac 30 MG/ML Syringe IV ×2 (16:10→22:27)
--- NOTE | 2019-03-02 17:11 | EKGRS_ITS ---
Test Reason : TACHYCARDIA Blood Pressure : / mmHG Vent. Rate : 121 BPM Atrial Rate : 121 BPM P-R Int : 118 ms QRS Dur : 080 ms QT Int : 284 ms P-R-T Axes : 053 031 -04 degrees QTc Int : 403 ms Sinus tachycardia Nonspecific T wave abnormality Abnormal ECG No previous ECGs available Confirmed by QIANA WOOTEN, FELISHA ([id number]), online content editor DEREK GUTIÉRREZ ([id number]) on 03/09/2019 9:53:42 AM Referred By: Letty Hardy Confirmed By:FELISHA KIRAN MD
[2019-03-02 17:36] LABS: Hemoglobin 10.5 g/dL (12.0-15.0); Mean Corpuscular Hgb 32.1 pg (27.0-32.0); Mean Corpuscular Volume 91.7 fL (81-99); Platelet Count 220 K/mm3 (150-450); RBC Distribution Width CV 13.1 % (11.6-14.6); RBC Distribution Width SD 43.1 fl (35.1-43.9); Red Blood Count 3.27 M/mm3 (4.2-5.4); White Blood Count 17.8 K/mm3 (4.4-11.0)
[2019-03-02] MEDS: Acetaminophen 500 MG Tablet 1000 MG PO (20:11)
[2019-03-02] MEDS: Senna/Docusate Sodium 1 Tablet PO (20:12)
[2019-03-03] VITALS (10 sets, daily range): BP systolic 106–116; BP diastolic 63–79; PULSE 97–116; RESP 16–20; TEMP 36.4–37.5; O2SAT 96–100
[2019-03-03] MEDS: 0.9% Saline Lock 10 ML Syringe IV ×2 (03:50→10:16)
[2019-03-03] MEDS: Ketorolac 30 MG/ML Syringe IV (03:50)
[2019-03-03] MEDS: Acetaminophen 500 MG Tablet 1000 MG PO (04:37)
[2019-03-03 04:41] LABS: Hemoglobin 10.6 g/dL (12.0-15.0); Mean Corp Hgb Conc 34.2 g/dL (32-36); Mean Corpuscular Hgb 31.8 pg (27.0-32.0); Mean Corpuscular Volume 93.1 fL (81-99); Mean Platelet Vol. 9.6 fl (6.2-12.0); Platelet Count 194 K/mm3 (150-450); RBC Distribution Width CV 12.9 % (11.6-14.6); Red Blood Count 3.33 M/mm3 (4.2-5.4); White Blood Count 13.6 K/mm3 (4.4-11.0)
--- NOTE | 2019-03-03 08:25 | PCM.PN.OB ---
Subjective: POD#1 Primary C/S intolerance of labor. Nonreassuring FHR tracing Doing well. Cramping and pain in lower abdomen. + Flatus. Prior B mastectomy. Bottle feeding. Using K pad and abdominal binder prn. Objective: Lying in bed, rouses to voice. NAD - Physical Exam Vitals/I&O's: Vital Signs Temp Pulse Resp BP Pulse Ox 97.5 F L 116 H 18 113/71 99 03/03/19 03:57 03/03/19 04:38 03/03/19 04:38 03/03/19 03:57 03/03/19 04:38 Oxygen Delivery Method Room Air Weight: 120.372 kg Body Mass Index (BMI) 40.3 Intake and Output for Last 24 Hours 03/01/19 03/02/19 03/03/19 23:59 23:59 23:59 Intake Total 1750 / 1750 7662.27 / 7662.27 563.33 / 563.33 Output Total 2550 / 2550 2800 / 2800 Balance 1750 / 1750 5112.27 / 5112.27 -2236.67 / -2236.67 General: Alert, Oriented x3, Cooperative, No apparent distress HEENT: Atraumatic, EOMI Neck: Supple Abdomen: Soft - Fundus firm minimally tender at 2 cm inferior to umbilicus. Abdomen softly distended, tympanitic. Skin: Incision - Mepilex CDI. Spot of old drainage to R of midportion, less than 1 cm Neurological: Cranial nerves II-XII grossly intact Psych/Mental Status: Normal Affect Laboratory Results 03/02/19 17:20: WBC 17.8 H, RBC 3.27 L, Hgb 10.5 L, Hct 30.0 L, MCV 91.7, MCH 32.1 H, MCHC 35.0, RDW Std Deviation 43.1, RDW Coeff of Tae 13.1, Plt Count 220, MPV 10.0 03/03/19 04:33: WBC 13.6 H, RBC 3.33 L, Hgb 10.6 L, Hct 31.0 L, MCV 93.1, MCH 31.8, MCHC 34.2, RDW Std Deviation 44.0 H, RDW Coeff of Tae 12.9, Plt Count 194, MPV 9.6 Current Medications Acetaminophen (Tylenol) 1,000 mg PO Q8H PRN PRN Reason: Pain Score 1-3/10 Last Admin: 03/03/19 04:37 Dose: 1,000 mg Documented by: Bisacodyl (Dulcolax) 10 mg RECTAL UD PRN PRN Reason: If no BM Enoxaparin Sodium (Lovenox) 30 mg SC DAILY [facility] Hydrocortisone (Hytone) 1 applic TOPICAL TID PRN PRN; Protocol PRN Reason: Discomfort Lactated Ringer's () 1,000 mls @ 100 mls/hr IV .Q10H [facility] Last Admin: 03/03/19 06:04 Dose: Not Given Documented by: Naloxone HCl 4 mg/ Dextrose 504 mls @ 0 mls/hr IV .Q0M PRN; Protocol PRN Reason: Respiratory depression Ibuprofen (Motrin) 600 mg PO Q6H PRN PRN PRN Reason: Pain Score 1-3/10 Ketorolac Tromethamine (Toradol) 30 mg IV Q6H [facility] Stop: 03/04/19 10:01 Last Admin: 03/03/19 03:50 Dose: 30 mg Documented by: Methylergonovine Maleate (Methergine) 0.2 mg IM X1 PRN PRN Reason: Uterine Atony Naloxone HCl (Narcan) 0.02 mg IV Q1M PRN PRN Reason: RR <10 and pt unresponsive Ondansetron HCl (Zofran) 4 mg IV Q4H PRN PRN PRN Reason: Nausea Oxycodone HCl (Oxyir) 5 - 10 mg PO Q4H PRN PRN PRN Reason: Pain Score 4-10/10 Prochlorperazine Edisylate (Compazine Iv) 10 mg IV Q6H PRN PRN PRN Reason: NAUSEA Senna/Docusate Sodium (Senokot-S, Marya-Colace) 0 tablet PO DAILY PRN PRN Reason: Constipation Last Admin: 03/02/19 20:12 Dose: 1 tablet Documented by: Simethicone (Mylicon) 80 mg PO PCHS PRN PRN Reason: Indigestion/stomach pain Last Admin: 03/02/19 20:12 Dose: 80 mg Documented by: Sodium Chloride () 5 - 15 ml IV UD PRN PRN Reason: SALINE FLUSH Last Admin: 03/03/19 03:50 Dose: 10 ml Documented by: Medical Necessity - Tobacco Use Smoking Status: Former smoker Assessment/Plan All Active Problems (Last Reviewed 02/11/19 @ 15:14 by Robert De La Rosa MD) Palpitations (Acute) False labor before 37 completed weeks of gestation (Resolved) Acute cystitis (Resolved) POD#1 primary C/S for intolerance of labor, nonreassuring FHR tracing Stable postop . CBC stable. AFEB Continued mild tachycardia Inc diet and activity as tolerated. Begin po meds. D/C roche for voiding trial. May shower. IV to S/L to continue Toradol for up to 48 hr postop. continue routine postop care.
[2019-03-03] MEDS: Enoxaparin 30 MG/0.3 ML Syringe SC (10:15)
[2019-03-03] MEDS: Ibuprofen 600 MG Tablet PO ×2 (10:32→18:27)
[2019-03-03] MEDS: oxyCODONE 5 MG Tablet PO ×3 (12:25→20:42)
[2019-03-04] MEDS: Ibuprofen 600 MG Tablet PO ×3 (00:23→21:04)
[2019-03-04 01:53] VITALS: BP 103/61; PULSE 104; RESP 16; TEMP 37.1
[2019-03-04] MEDS: oxyCODONE 5 MG Tablet PO ×3 (05:03→23:33)
[2019-03-04 08:41] VITALS: BP 103/70; PULSE 97; RESP 16; TEMP 36.3
--- NOTE | 2019-03-04 09:39 | PN.OBGYN_ITS ---
Subjective: POD #2 Objective: Lower abdominal/incisional pain. Taking PO medication (oxy and motrin) which is lessening it from a 9/10 to a 6/10. Abdominal binder is helping. Didn't get much sleep and feeling very emotional. Wants to stay until Saturday morning because would be off work to help at home. - Physical Exam Vitals/I&O's: Vital Signs Temp Pulse Resp BP Pulse Ox 97.3 F L 97 16 103/70 100 03/04/19 08:41 03/04/19 08:41 03/04/19 08:41 03/04/19 08:41 03/03/19 17:02 Oxygen Delivery Method Room Air Weight: 120.372 kg Body Mass Index (BMI) 40.3 Intake and Output for Last 24 Hours 03/02/19 03/03/19 03/04/19 23:59 23:59 23:59 Intake Total 7662.27 / 7662.27 563.33 / 563.33 Output Total 2550 / 2550 3900 / 3900 Balance 5112.27 / 5112.27 -3336.67 / -3336.67 General: Alert, Oriented x3, Cooperative HEENT: Atraumatic, PERRLA, EOMI, Normocephalic Neck: Supple, No JVD, Negative Carotid Bruits Lungs: Clear to auscultation, Normal air movement Cardiovascular: Regular rate, No murmurs Abdomen: Bowel Sounds Present, Soft, Passing Flatus Extremities: No edema, Capillary Refill Less than 3 Seconds Skin: No rashes, No breakdown, Incision - Csection Musculoskeletal: No Tenderness to Palpation of Joints or Extremities Neurological: Cranial nerves II-XII grossly intact Psych/Mental Status: Normal Affect, Appropriate, Agitated - upset and emotional about not being able to sleep and feeling like she was a burden to the nurse last night Current Medications Acetaminophen (Tylenol) 1,000 mg PO Q8H PRN PRN Reason: Pain Score 1-3/10 Last Admin: 03/03/19 04:37 Dose: 1,000 mg Documented by: Bisacodyl (Dulcolax) 10 mg RECTAL UD PRN PRN Reason: If no BM Enoxaparin Sodium (Lovenox) 30 mg SC DAILY [facility] Last Admin: 03/03/19 10:15 Dose: 30 mg Documented by: Hydrocortisone (Hytone) 1 applic TOPICAL TID PRN PRN; Protocol PRN Reason: Discomfort Naloxone HCl 4 mg/ Dextrose 504 mls @ 0 mls/hr IV .Q0M PRN; Protocol PRN Reason: Respiratory depression Ibuprofen (Motrin) 600 mg PO Q6H PRN PRN PRN Reason: Pain Score 1-3/10 Last Admin: 03/04/19 06:36 Dose: 600 mg Documented by: Methylergonovine Maleate (Methergine) 0.2 mg IM X1 PRN PRN Reason: Uterine Atony Naloxone HCl (Narcan) 0.02 mg IV Q1M PRN PRN Reason: RR <10 and pt unresponsive Ondansetron HCl (Zofran) 4 mg IV Q4H PRN PRN PRN Reason: Nausea Oxycodone HCl (Oxyir) 5 - 10 mg PO Q4H PRN PRN PRN Reason: Pain Score 4-10/10 Last Admin: 03/04/19 05:03 Dose: 10 mg Documented by: Prochlorperazine Edisylate (Compazine Iv) 10 mg IV Q6H PRN PRN PRN Reason: NAUSEA Senna/Docusate Sodium (Senokot-S, Marya-Colace) 0 tablet PO DAILY PRN PRN Reason: Constipation Last Admin: 03/02/19 20:12 Dose: 1 tablet Documented by: Simethicone (Mylicon) 80 mg PO PCHS PRN PRN Reason: Indigestion/stomach pain Last Admin: 03/03/19 21:05 Dose: 80 mg Documented by: Sodium Chloride () 5 - 15 ml IV UD PRN PRN Reason: SALINE FLUSH Last Admin: 03/03/19 10:16 Dose: 10 ml Documented by: Medical Necessity - Tobacco Use Smoking Status: Former smoker Assessment/Plan All Active Problems (Last Reviewed 02/11/19 @ 15:14 by Robert De La Rosa MD) Palpitations (Acute) False labor before 37 completed weeks of gestation (Resolved) Acute cystitis (Resolved) POD#2 primary C/S for intolerance of labor, nonreassuring FHR tracing Stable postop . CBC stable. Afebrile Tolerating regular diet and up in hallways walking. To continue to wear abdominal binder and splint incision when changing positions. Continue PO pain management. Cutter And Edge Trimmer will speak to studio operations engineer in charge about slot shift supervisor nurse taking for a few hours for patient to get sleep for her physical and emotional well being. Plan to not discharge until Saturday AM when is able to help at home. Is planning contraception to prevent for at least 6 months based on MFM recommendation.
[2019-03-04] MEDS: Enoxaparin 30 MG/0.3 ML Syringe SC (10:49)
[2019-03-04 12:45] LABS: Pathology Specimen OB SEE PATHOLOGY REPORT
[2019-03-04 14:00] VITALS: BP 114/78; PULSE 108; RESP 14; TEMP 38
[2019-03-04 19:30] VITALS: BP 137/77; PULSE 114; RESP 16; TEMP 37.3
[2019-03-04] MEDS: Senna/Docusate Sodium 1 Tablet PO (21:04)
[2019-03-05 02:20] VITALS: BP 117/70; PULSE 79; RESP 18; TEMP 36.2
[2019-03-05] MEDS: Ibuprofen 600 MG Tablet PO ×3 (02:35→15:05)
[2019-03-05] MEDS: Acetaminophen 500 MG Tablet 1000 MG PO (07:31)
[2019-03-05 07:42] VITALS: BP 123/81; PULSE 80; RESP 16; TEMP 36.8
[2019-03-05] MEDS: oxyCODONE 5 MG Tablet PO ×2 (09:05→16:44)
--- NOTE | 2019-03-05 09:51 | PCM.DC.SUM ---
Discharge Date and Diagnosis Date of Admission: 03/01/19 Date of Discharge: 03/05/19 - Primary Discharge Diagnosis Post-op Hospital Course and Treatment Consultations 03/01/19 18:09 Consult: Anesthesia Routine Comment: Reason For Exam: Labor Operations: - - Summary of Care Provided: The patient is a 33 year old F [] Subjective: Feeling much better with a little sleep last night because was able to come and stay. Still controlling pain with Oxy and Motrin well. Would like Rx for both. Plans OCPS at PP visit. History of BRCA 2 gene, but not breast CA. Has taken before and worked well. Is planning embryo transfer in December. BM x2. Objective: Sitting up, pain 4/10 in the head, but just took tylenol and is planning a shower. States it is a tension headache that she is used to and no concerns of spinal headache. Will call if tylenol does not resolve. Incision CDI and will take off at one week. Fundus 3 under umbilicus. - Physical Exam Vitals/I&O's: Vital Signs Temp Pulse Resp BP Pulse Ox 98.3 F 80 16 123/81 H 100 03/05/19 07:42 03/05/19 07:42 03/05/19 07:42 03/05/19 07:42 03/03/19 17:02 Oxygen Delivery Method Room Air Weight: 120.372 kg Body Mass Index (BMI) 40.3 Intake and Output for Last 24 Hours 03/03/19 03/04/19 03/05/19 23:59 23:59 23:59 Intake Total 563.33 / 563.33 Output Total 3900 / 3900 Balance -3336.67 / -3336.67 General: Alert, Oriented x3, Cooperative HEENT: Atraumatic, PERRLA, EOMI, Normocephalic Neck: Supple, No JVD, Negative Carotid Bruits Lungs: Clear to auscultation, Normal air movement Cardiovascular: Regular rate, No murmurs Abdomen: Bowel Sounds Present, Soft, Non Tender, - - Incision- dressing CDI Extremities: No edema, Capillary Refill Less than 3 Seconds Skin: No rashes, No breakdown Musculoskeletal: No Tenderness to Palpation of Joints or Extremities Neurological: Cranial nerves II-XII grossly intact Psych/Mental Status: Normal Affect, Appropriate Current Medications Acetaminophen (Tylenol) 1,000 mg PO Q8H PRN PRN Reason: Pain Score 1-3/10 Last Admin: 03/05/19 07:31 Dose: 1,000 mg Documented by: Bisacodyl (Dulcolax) 10 mg RECTAL UD PRN PRN Reason: If no BM Enoxaparin Sodium (Lovenox) 30 mg SC DAILY JT Last Admin: 03/04/19 10:49 Dose: 30 mg Documented by: Hydrocortisone (Hytone) 1 applic TOPICAL TID PRN PRN; Protocol PRN Reason: Discomfort Naloxone HCl 4 mg/ Dextrose 504 mls @ 0 mls/hr IV .Q0M PRN; Protocol PRN Reason: Respiratory depression Ibuprofen (Motrin) 600 mg PO Q6H PRN PRN PRN Reason: Pain Score 1-3/10 Last Admin: 03/05/19 08:58 Dose: 600 mg Documented by: Methylergonovine Maleate (Methergine) 0.2 mg IM X1 PRN PRN Reason: Uterine Atony Naloxone HCl (Narcan) 0.02 mg IV Q1M PRN PRN Reason: RR <10 and pt unresponsive Ondansetron HCl (Zofran) 4 mg IV Q4H PRN PRN PRN Reason: Nausea Oxycodone HCl (Oxyir) 5 - 10 mg PO Q4H PRN PRN PRN Reason: Pain Score 4-10/10 Last Admin: 03/05/19 09:05 Dose: 5 mg Documented by: Prochlorperazine Edisylate (Compazine Iv) 10 mg IV Q6H PRN PRN PRN Reason: NAUSEA Senna/Docusate Sodium (Senokot-S, Marya-Colace) 0 tablet PO DAILY PRN PRN Reason: Constipation Last Admin: 03/04/19 21:04 Dose: 1 tablet Documented by: Simethicone (Mylicon) 80 mg PO PCHS PRN PRN Reason: Indigestion/stomach pain Last Admin: 03/04/19 21:04 Dose: 80 mg Documented by: Sodium Chloride () 5 - 15 ml IV UD PRN PRN Reason: SALINE FLUSH Last Admin: 03/03/19 10:16 Dose: 10 ml Documented by: Discharge Diet: No Restrictions Discharge Activity: May not drive while taking narcotic pain medications., May Shower, May Take a Tub Bath Return to work on:: 04/27/19 May resume sexual activity in: 4-6 weeks Additional Activity Instructions:: Nothing in the vagina for 4-6 weeks. You may return to work/school in 6 weeks. Call your doctor if your incision/area has: Continuous Slow Oozing, Sudden Increased Bleeding, Increased Pain/ Swelling, Increased Redness, Foul Smelling Discharge, Swelling at the incision site Call your doctor if you observe: Fever of 101 or Higher, Numbness or Tingling, Inability to urinate, Inability to have a bowel movement, Using more than one pad per hour, Shortness of breath, Dizziness, Chest pain, Uncontrolled pain Suture Line Care: Avoid Pulling/Pushing, Avoid Pinching/Bending Change Dressing in (Days):: 14 Remove Dressing in (days):: 14 Cleanse incision/area with: Soap & Water, Keep Dressing Clean & Dry Home Medications: Medications to take at Discharge vitamin,calcium,ukiyjxwb-lhnt-sppvo acid tablet 1 tab PO QHS 01/28/19 Docusate Sodium [Colace] 100 mg PO BID PRN PRN #60 cap 03/02/19 Oxycodone [Oxyir] 5 mg PO Q6H PRN PRN 7 Days #20 tab 03/02/19 Following Prescrptions Were Given to Patient: Docusate Sodium [Colace] 100 mg PO BID PRN PRN #60 cap PRN Reason: Constipation Transmission Status: Received by [facility] Oxycodone [Oxyir] 5 mg PO Q6H PRN PRN 7 Days #20 tab PRN Reason: Pain Score 6-10/10 Transmission Status: Received by [facility] Primary Care Physician: Care Physician,No Primary [Primary Care Provider] - Please Follow Up With: Letty Hardy MD - [phone] When: Call to make an appointment for an incision check in 2 weeks. Disposition: Home Medical Necessity - Tobacco Use Smoking Status: Former smoker Meaningful Use Info Meaningful Use Diagnoses (Choose all that apply): None applicable
[2019-03-05] MEDS: Enoxaparin 30 MG/0.3 ML Syringe SC (10:05)
[2019-03-05 13:47] VITALS: BP 110/69; PULSE 88; RESP 14; TEMP 36.5
== END 2019-03-05 17:05 | disposition home or self-care (01) | DRG 786 ==
PROVIDERS: Obstetrics & Gynecology; Admitting Provider Obstetrics & Gynecology; Referring Provider Obstetrics & Gynecology; Visit Provider Obstetrics & Gynecology
DX: O76 Abnormality in fetal heart rate and rhythm complicating labor and delivery (principal); O41.1230 Chorioamnionitis, third trimester, not applicable or unspecified; O75.2 Pyrexia during labor, not elsewhere classified; O36.63X0 Maternal care for excessive fetal growth, third trimester, not applicable or unspecified; O40.3XX0 Polyhydramnios, third trimester, not applicable or unspecified; Z3A.38 38 weeks gestation of pregnancy; Z37.0 Single live birth; Z90.13 Acquired absence of bilateral breasts and nipples; Z87.59 Personal history of other complications of pregnancy, childbirth and the puerperium; Z80.3 Family history of malignant neoplasm of breast; Z80.49 Family history of malignant neoplasm of other genital organs; Z87.891 Personal history of nicotine dependence
CPT/HCPCS: 59025; 59050; 84112; 85025; 85027; 88307; 93005; 99218; 99251; J7030; J7120; A4216; G0378; G0463; J2405

== ENCOUNTER → 2019-06-08 09:34 | Outpatient (CLI) | payer OTHER, SELFPAY ==
--- NOTE | 2019-06-08 09:37 | MRI_ITS ---
STUDY: BILATERAL BREAST MR WITHOUT AND WITH CONTRAST REASON FOR EXAM: Female, 34 years old. BRCA 2 POSITIVE, HX PRIOR MASTECTOMY, FAILED NIPPLE RECON TECHNIQUE: Multi-sequence multi-echo imaging of both breasts was performed with a dedicated breast coil. T1-weighted and T2-weighted images were performed before the administration of contrast. T1-weighted images were also performed after the administration of IV Yes without complications. COMPARISON: None FINDINGS: RIGHT BREAST: The breast tissue is normal with a normal right breast implant in place. No abnormal masses or lesions are identified within the breast. There is an enhancing right axillary lymph node measuring about 2.14 cm x 0.6 cm in size probably representing a reactive lymph node. LEFT BREAST: The breast tissue is normal with a normal left breast implant in place. No abnormal masses or lesions are identified within the left breast There are no abnormal enhancing masses or areas of non-mass enhancement in the left breast. There are no enlarged or abnormal lymph nodes. There is no abnormality in the visualized regions of the chest or liver. MRI/Breast Bilateral W/O and W IMPRESSION: 1. A small mildly enhancing probably reactive lymph node is seen in the right auxilla, 2.. Bilateral breast implants are identified, in this otherwise normal MRI of the breasts bilaterally. CATEGORY: FINAL ASSESSMENT: BI-RAD CATEGORY II (BENIGN FINDING) YEARLY MAMMOGRAPHY RECOMMENDED Electronically Signed: Jose Dwain, at 16:17 EST Tel , Service support ,
== END ==
PROVIDERS: Referring Provider Advanced Practice Midwife; Visit Provider Advanced Practice Midwife
DX: Z15.01 Genetic susceptibility to malignant neoplasm of breast (principal); T85.49XS Other mechanical complication of breast prosthesis and implant, sequela
CPT/HCPCS: 77049; A9575; C8908

== ENCOUNTER 2020-01-19 12:28 | Observation (INO) | payer OTHER, SELFPAY ==
[2019-11-25 09:57] VITALS: BMI 40.3
[2020-01-11 15:20] LABS: Magnesium 2.5 mg/dL (1.6-2.6)
--- NOTE | 2020-01-18 18:04 | HP.PCM_ITS ---
History and Physical Date of Admission: 01/19/20 HISTORY OF PRESENT ILLNESS Patient is a 34 year old female who presents for evaluation for breast reconstruction. She has a family history of breast cancer. Because of that, she underwent genetic testing in 2008. 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 With an increased risk of developing breast cancer, she underwent bilateral prophylactic mastectomy (areolar sparing) and placement of submuscular saline tissue expanders. This was followed by removal of the expanders with replacement implants. She states she developed issues with the breast reconstruction and underwent revision of her reconstructed breasts in 2011 with another saline tissue ex pander. This was followed by removal of the expanders with replacement implants. She thinks they were cohesive gel implants. Also later on in 2011, she underwent bilateral nipple reconstruction which developed healing issues that required wound care and antibiotics until healed. She has persistent pain in her areolar areas from the scarring and a pectoralis muscle animation deformity when she uses her arms or exercises. She had an MRI done on 06/08/19. It showed right breast tissue is normal with a normal right breast implant in place. No abnormal masses or lesions are identified within the breast. There is an enhancing right axillary lymph node measuring about 2.14 cm x 0.6 cm in size probably representing a reactive lymph node. The left breast tissue is normal with a normal left breast implant in place. No abnormal masses or lesions are identified within the left breast. There are no abnormal enhancing masses or areas of non-mass enhancement in the left breast. There are no enlarged or abnormal lymph nodes. There is no abnormality in the visualized regions of the chest or liver. She presents today to discuss surgical options for further breast reconstruction revision. 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 FAMILY HISTORY Grandmother - Cancer, breast and uterine Aunt - Cancer, multiple aunts with breast cancer SOCIAL HISTORY Smoking Status: Former smoker how long ago did patient quit smokin alcohol intake: current substance use type: does not use REVIEW OF SYSTEMS General - Denies fever, fatigue, and weight loss. Eyes - Denies cataracts and glaucoma. ENT - Denies nasal congestion and sore throat. Endocrine - Denies excessive thirst and urination. Skin - Denies suspicious lesions and skin cancer. Breast - Bilateral mastectomy with reconstruction 2009. Reconstruction revised 2011. Has bilateral areolar pain and pectoralis muscle animation deformity. Musculoskeletal - Denies joint pain, joint stiffness, weakness of muscles and joints, back pain, and arthritis. ORIF left clavicle 2003. Neuro - Denies headaches. Cardiovascular - Denies chest pain, fatigue, and shortness of breath with exertion. Psych - Denies anxiety and depression. Respiratory - Denies chronic cough and shortness of breath. Gastrointestinal - Denies nausea, vomiting, diarrhea, and constipation. Hematologic - Denies abnormal bruising and bleeding. Genitourinary - Denies hematuria and urinary frequency. Right salpingectomy 2013. section 2019. PHYSICAL EXAMINATION General - Alert and oriented. Bra size is 36 A-B. HEENT - PERRL. EOMI. Throat is clear. Neck - Supple and non-tender. No cervical adenopathy. Breasts - Has palpable implants bilaterally. Clinically feel like cohesive gel and not saline implants. No breast masses palpable. Mild tenderness at areolar scar bilaterally. Has noticeable pectoralis muscle animation deformity bilaterally. There is a small deformity on the superolateral aspect left breast reconstruction with decreased superior pole fullness with some capsular contracture. Mild tenderness. There is medial capsular contraction bilaterally. Mild tenderness. No axillary adenopathy. Breast width is 14 cm bilaterally. Lungs- Clear to auscultation. Heart - Regular rate and rhythm. Abdomen - Soft and non distended. There is a horizontal scar in pubic area. There is redundant skin and subcutaneous tissue between the umbilicus and the pubic area. Extremities - FROM. No axillary adenopathy. Radial pulses are palpable. Neuro - CN II-XII grossly intact. Psych - Normal mood and affect. ASSESSMENT 1. Painful areolar scarring bilateral breast reconstruction. 2. Acquired absence bilateral breasts and nipples. 3. Prophylactic bilateral breast removal (areolar sparing). 4. 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 5. Deformity reconstructed breasts. 6. Painful pectoralis muscle animation deformity. 7. Capsular contracture bilateral breast reconstruction. 8. History of bilateral breast implants reconstruction. 9. Family history of breast cancer. 10. Former smoker. PLAN MRI reviewed. There was a mildly enhancing probably reactive lymph node in the right axilla. Yearly mammography was recommended. Will try and obtain previous records of her breast reconstruction surgery. Discussed revision breast reconstruction. Initially we need to remove the implants with capsulectomies. Will lay the pectoralis muscle back down on the chest wall and create a new prepectoral pocket. This should take care of the pectoralis muscle animation deformity. With prepectoral placement of the cohesive gel implant, will cover the implant completely with acellular dermal matrix graft. Will leave the areolar alone at this time. A separate inframammary incision will be made to get better exposure. Will extend the pocket a little more medially to decrease the separation between the breasts. With the amount of scarring to be anticipated from her previous surgeries, if the breast pocket is a little tight, may hold off on placement of implants initially and place saline tissue expanders. Later on, will remove the expanders with replacement cohesive gel implants. She is not sure of the size of her existing implants. Clinically, they appear to be in the 300 ml range. After healing has occurred, can then address the areolar scarring if there remains persistent discomfort. Hopefully with the capsulectomy, the painful areolar scarring will improve. If not, can consider removing the areola with a completion mastectomy. Later on can proceed with nipple reconstruction with intradermal tattooing. The other option for breast reconstruction is using autogenous tissue. A bilateral TRAM flap was discussed. She is interested but not right now since she is thinking of having another baby. If she does decide on a TRAM flap in the future, there is the pedicled flap versus a microvascular free tissue transfer flap. The microvascular free tissue transfer flap has the benefit of decreased risk for a hernia. It does require the use of a microscope and would be done at a tertiary center. The pedicled flap can be done here in [place]. Surgery will be done under general anesthesia with a surgical observation overnight stay in the hospital. She will have drains in for several days and be maintained on antibiotics until the drains are removed. Any tissue that is removed at the time of surgery will be sent to Pathology for analysis to rule out carcinoma. Patient was informed of the risks and complications of the procedure including alternatives to surgery. These were discussed with the patient personally. Patient voices understanding and wishes to proceed. Some of the risks and complications were included in a form from the [employer] [employer]. We discussed the current risks associated with COVID-19. While it is understood that there is a community spread of COVID-19, the risk of radha COVID-19 while at [facility] ([facility]) is very low; however, the risk cannot be completely mitigated because of the community spread of the disease. We discussed in detail the risk of exposure to and/or potential harm posed by the COVID-19 virus with having a surgery/procedure at this time versus the risk of delaying the surgery/procedure. It is not possible to know either the risk of delaying the surgery or procedure or chance of getting an infection with perfect accuracy, but a joint decision was made to proceed at this time with the scheduled surgery/procedure as indicated on the consent form. Patient was notified that we will need to comply with any screening or testing [facility] wishes to perform or that surgery may be delayed for any positive results. Discussed with the patient that I was tested for COVID-19 on 10/15/19 which was negative and on 10/29/19 which was negative and on 11/12/19 which was negative and on 11/26/19 which was negative and on 12/10/19 which was negative and on 12/31/19 which was negative. My testing regimen at this time is to be COVID-19 tested every 2 weeks or so. Procedure Criteria Procedure Type: Elective COVID Risk Discussion: The surgeon/proceduralist and patient have discussed in detail the risk of exposure to and/or potential harm posed by the COVID-19 virus with having a surgery/procedure at this time versus the risk of delaying the surgery/procedure. It is not possible to know either the risk of delaying the surgery or procedure or chance of getting an infection with perfect accuracy, but a joint decision was made between the patient and the surgeon/proceduralist to proceed at this time with the scheduled surgery/procedure as indicated on the consent form.
[2020-01-19] VITALS (16 sets, daily range): BP systolic 105–144; BP diastolic 62–81; PULSE 73–100; RESP 16–18; TEMP 36.2–36.9; O2SAT 95–100; BMI 35.3
[2020-01-19 06:16] LABS: Internal QC Validated? YES +Cl - CLEAR BKGD; Pregnancy, Urine Negative Negative
[2020-01-19] MEDS: Lactated Ringers 1,000 ML 40 ML IV (06:29)
[2020-01-19] MEDS: Gabapentin 600 MG Tablet PO (06:34)
[2020-01-19] MEDS: Acetaminophen 500 MG Tablet 1000 MG PO ×2 (06:34→18:30)
[2020-01-19] MEDS: Scopolamine 1mg/72hr Patch 1 PATCH TRANSDERM. (06:34)
[2020-01-19 06:55] LABS: Bedside Glucose 94 mg/dL (70-110)
[2020-01-19] MEDS: Cefazolin 2 GM in 0.9% Normal Saline 100 ML IV (07:30)
--- NOTE | 2020-01-19 07:30 | BRBX_PTH ---
PATIENT: GUERO CASTORENA LOC: [id number] U#:[id number] AGE/SX: 34/F ROOM: [facility] [place]01[place]19/[address]: Dr. Ceferino Landa MD : 1985 BED: 1 DIS: 01/22/2020 SPEC #: [id number] RECD: 01/20/20 06:51 STATUS: PARVEEN PERALTA #: [id number] IRVING: 01/19/20 07:[address]: Ceferino Landa DEPT: SURGICAL PATHOLOGY RECD BY: Héctor Kim ENTERED: 01/20/20 10:47 SP TYPE: BREAST BX OT DR: No Primary Care Phys Tissues: A - Right breast, NOS B - Left breast, NOS Procedures: Surgery Specimen Level IV HEADER OPERATION: Revision breast reconstruction, removal breast implants PRE-OP DIAGNOSIS: Painful areolar scarring bilateral breast reconstruction TISSUE SUBMITTED: A - Right breast capsule, B - Left breast capsule MICROSCOPIC DIAGNOSIS A. Right breast capsule, excision: Fibrous capsule with collagenization. Skeletal muscle with no significant pathologic change. No evidence of malignancy. B. Left breast capsule, excision: Fibrous capsule with collagenization. Skeletal muscle with no significant pathologic change. Breast parenchyma with mild fibrocystic change. No evidence of malignancy. AM:david 01/21/20 MICROSCOPIC DESCRIPTION Slides are reviewed. GROSS DESCRIPTION A - Received in fixative is one container labeled with the patient's name and designated right breast capsule. The specimen consists of multiple irregular fragments of rubbery to glistening yellow-guadalupe soft tissue that in aggregate measure 11 x 10 x 2 cm. Professor Of French sections are submitted in two cassettes. B - Received in fixative is one container labeled with the patient's name and designated left breast capsule. The specimen consists of multiple irregular fragments of rubbery to glistening yellow-guadalupe soft tissue that in aggregate measure 11 x 8 x 2 cm. Professor Of French sections are submitted in two cassettes. / AM:david 01/20/20 TC:5 CPT: 16798 x2
--- NOTE | 2020-01-19 12:14 | OP.PCM_ITS ---
Report of Operation Date of Procedure: 01/19/20 Pre-Operative Diagnosis: 1. Painful areolar scarring bilateral breast rec onstruction. 2. Acquired absence bilateral breasts and nipples. 3. Prophylactic bilateral breast removal (areolar sparing). 4. 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 5. Deformity reconstructed breasts. 6. Painful pectoralis muscle animation deformity. 7. Capsular contracture bilateral breast reconstruction. 8. History of bilateral breast implants reconstruction. 9. Family history of breast cancer. 10. Former smoker. Post-Operative Diagnosis: Same. Surgery/Procedure Performed:: 1. Revision bilateral breast reconstruction with removal of bilateral cohesive gel implants and bilateral capsulectomy. 2. Revision bilateral pectoralis muscle animation deformity with placement bilateral prepectoral tissue expanders (700 ml filled to 400 ml) and placement bilateral MTF FlexHD acellular dermal matrix grafts (21 x 24 cm on the left, and 23 x 26 cm on the right). Description of Surgical Findings:: Patient is a 34 year old female who presents for evaluation for breast reconstruction. She has a family history of breast cancer. Because of that, she underwent genetic testing in 2008. 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 With an increased risk of developing breast cancer, she underwent bilateral prophylactic mastectomy (areolar sparing) and placement of submuscular saline tissue expanders. This was followed by removal of the expanders with replacement implants. She states she developed issues with the breast reconstruction and underwent revision of her reconstructed breasts in 2011 with another saline tissue kaia[place] kura ka[place] maori. This was followed by removal of the expanders with replacement implants. She thinks they were cohesive gel implants. Also later on in 2011, she underwent bilateral nipple reconstruction which developed healing issues that required wound care and antibiotics until healed. She has persistent pain in her areolar areas from the scarring and a pectoralis muscle animation deformity when she uses her arms or exercises. She had an MRI done on 06/08/19. It showed right breast tissue is normal with a normal right breast implant in place. No abnormal masses or lesions are identified within the breast. There is an enhancing right axillary lymph node measuring about 2.14 cm x 0.6 cm in size probably representing a reactive lymph node. The left breast tissue is normal with a normal left breast implant in place. No abnormal masses or lesions are identified within the left breast. There are no abnormal enhancing masses or areas of non-mass enhancement in the left breast. There are no enlarged or abnormal lymph nodes. There is no abnormality in the visualized regions of the chest or liver. She presents today to discuss black rgical options for further breast reconstruction revision. Patient was informed of the risks and complications of the procedure including alternatives to surgery. These were discussed with the patient personally. Patient voices understanding and wishes to proceed. Some of the risks and complications were included in a form from the [employer]. IV Fluids - 1750 ml. Urine Output - 950 ml. I used [place] Artoura Ultra High Profile, Smooth, Breast Tissue Nurse Midwife/Clinical Instructor, Suture Tabs, Integral Injection Dome, (700 ml on the left). Reference Number - [id number]. Lot Number - [id number]. Serial Number - [id number]. Expiration - November 26, 2023. Nurse Midwife/Clinical Instructor filled with 400 ml. I used [place] [employer] Ultra High Profile, Smooth, Breast Tissue Nurse Midwife/Clinical Instructor, Suture Tabs, Integral Injection Dome, (700 ml on the right). Reference Number - [id number]. Lot Number - [id number]. Serial Number - [id number]. Expiration - November 26, 2023. Nurse Midwife/Clinical Instructor filled with 400 ml. I used MTF FlexHD Acellular Dermal Matrix Graft, Pliable PRE, Thick (21 x 24 cm on the left). Item Number - [id number]. Serial Number - [id number]. Expiration - November 23, 2022. I used MTF FlexHD Acellular Dermal Matrix Graft, Pliable PRE, Thick (23 x 26 cm on the right). Item Number- [id number]. Serial Number - [id number]. Expiration - November 15, 2022. I used Antonella absorbable hemostat, (I used 2 vials, one in each breast). Reference Number - [id number]. Lot Number - [id number]. Expiration - September 09, 2024. technical assistance consultant: Zane Breen. Type of Anesthesia:: General Specimen's removed: 1. Left breast tissue and capsule to Pathology. 2. Right breast tissue and capsule to Pathology. Drains: Arnol x2 (one in each breast). Estimated Blood Loss (mL): 150 ml. Fluids Replaced: 2700 ml (IV Fluids 1750 ml, Urine Output 950 ml). Description of Procedure: In the holding area, the patient was placed in the sitting position. Preop markings were made from the sternal notch to the umbilicus. The inframammmary folds were marked bilaterally. Patient was taken to OR in supine position and was placed under general anesthesia. The breasts were prepped and draped in the usual fashion. SCD's were placed for DVT prophylaxis. Perioperative antibiotics were given intravenously. A roche catheter was placed. For the procedure, I wore an N95 mask and wore proper eyewear protection. I made horizontal markings in the inframammary fold bilaterally by measuring from the areola for a length of 6 cm. The horizontal marking was 9 cm. Using xylocaine with epinephrine, the inframammary fold markings were infiltrated. After waiting 5 minutes for the anesthetic to take effect, incisions were made in the inframammary fold first on the right side and then on the left side. Dissection was carried down to the capsule. A capsulotomy was made and the cohesive gel was removed. It was a 500 ml implant. A capsulectomy was performed. I then dissected the pectoralis muscle from the breast skin flap to help with the animation deformity and to create a new prepectoral position for the implant. The pocket was dissected superiorly to the clavicle, medially to the sternum, inferiorly to the inframammary fold, and laterally to the anterior axillary line. Hemostasis was obtained with electrocautery. The wound was irrigated with Irrisept 0.05% chlorhexidine solution which was then followed with saline irrigation. The right breast tissue and capsule was sent to Pathology for analysis to rule out carcinoma. I placed moist gauze in the right breast pocket. I then went to the left side. Incision was made in the inframammary fold and dissection was carried down to the capsule. A capsulotomy was made and the cohesive gel was removed. It was a 500 ml implant. A capsulectomy was performed. I then dissected the pectoralis muscle from the breast skin flap to help with the animation deformity and to create a new prepectoral position for the implant. The pocket was dissected superiorly to the clavicle, medially to the sternum, inferiorly to the inframammary fold, and laterally to the anterior axillary line. Hemostasis was obtained with electrocautery. The wound was irrigated with Irrisept 0.05% chlorhexidine solution which was then followed with saline irrigation. The left breast tissue and capsule was sent to Pathology for analysis to rule out carcinoma. I placed moist gauze in the left breast pocket. I started with a 500 ml sizer and then a 600 ml sizer (High Profile and High Profile Xtra) which did not give satisfactory shape and contour with the patient in the sitting position. I then placed a 700 ml sizer (Ultra High Profile) which gave adequate shape and contour but it was a tight fit. I temporarily closed the incisions with 3-0 Vicryl interrupted sutures and there was too much tension. There was concern about postop healing issues. So I decided the best choice to obtain satisfactory shape and contour for the bilateral breast reconstruction would be placement of saline tissue expanders. I placed Art[place]ra Ultra High Profile, Smooth, breast tissue expanders (700 ml) in Betadine. I removed the air from the expanders. I then injected 50 ml of saline. I squeezed the expanders and no leaks were noted. Since I am placing the expanders in the prepectoral position, I covered the expanders with complete coverage with acellular dermal matrix graft. I secured the acellular dermal matrix graft to the lateral suture tabs with 3-0 Vicryl sutures and superiorly to each lateral flap with 3-0 Vicryl sutures. I placed a size 15 Arnol drain into each breast pocket through separate stab incisions laterally and secured to the skin with 3-0 Nylon sutures. I sprayed Antonella absorbable hemostat into each breast pocket to minimize seroma formation postoperatively. I used one vial in each breast. I then secured the inferior 3 suture tabs to the chest wall with 3-0 Vicryl sutures. The remaining acellular dermal matrix graft was wrapped underneath the inferior aspect of the expanders and secured to the chest wall with 3-0 Vicryl sutures. I located the port percutaneously and filled the 700 ml expanders with 400 ml saline. I closed the inframammary fold wounds in multiple layers using 3-0 Vicryl for the deep subcutaneous tissue. The deep dermis and subcutaneous tissue was approximated with 3-0 Monocryl interrupted sutures. The skin was approximated with 3-0 V lock unidirectional barbed running subcuticular suture. This was followed with Histoacryl skin tissue adhesive. Kerlix gauze was placed on the breasts followed by Medipore tape and a compression arron wrap. Patient tolerated the procedure well and was sent to PACU in satisfactory condition. Patient will be sent upstairs for continued postop care. She will be discharged when she is tolerating po analgesia and is steady on her feet with ambulation. She will keep her head elevated during the initial postoperative period and be on a lifting restriction. The drains will be removed in the office in 10-14 days. Grafts/Implants Used: [place] Art[place]ra Breast expanders, MTF FlexHD, and Antonella - Complications None. - Admit VTE Documentation VTE Present on Admission: No VTE Mechan Device Prophylaxis: SCD's VTE Pharm Prophylaxis ordered?: Yes Surgery Charges CPT - 48147 ICD-10 - T85.44xA, Z98.82, N64.4, Z90.13, Z40.01, Z15.01, N65.0, Z80.3, Z87.891 [id number] T85.44xA, Z98.82, N64.4, Z90.13, Z40.01, Z15.01, N65.0, Z80.3, Z87.891 38083 N65.0, N64.4, Z98.82, Z90.13, Z40.01, Z15.01, T85.44xA, Z80.3, Z87.891 70636-86 N65.0, N64.4, Z98.82, Z90.13, Z40.01, Z15.01, T85.44xA, Z80.3, Z87.891 95065 N64.4, Z90.13, Z40.01, Z15.01, N65.0, T85.44xA, Z98.82, Z80.3, Z87.891 [id number] N64.4, Z90.13, Z40.01, Z15.01, N65.0, T85.44xA, Z98.82, Z80.3, Z87.891 43332-25 N64.4, Z90.13, Z40.01, Z15.01, N65.0, T85.44xA, Z98.82, Z80.3, Z87.891
[2020-01-19] MEDS: Lactated Ringers 1,000 ML 60 ML IV ×2 (13:30→22:38)
[2020-01-19] MEDS: HYDROmorphone 1 MG/ML Syringe IV ×2 (14:53→20:10)
[2020-01-19] MEDS: Cefazolin 1 GM/50 ML BAG IV ×2 (16:14→22:37)
[2020-01-19] MEDS: Gabapentin 100 MG Capsule 200 MG PO (16:19)
[2020-01-19] MEDS: Ondansetron ODT 4 MG Tablet PO (16:19)
[2020-01-19] MEDS: oxyCODONE 5 MG Tablet PO (18:33)
[2020-01-19] MEDS: Docusate Sodium 100 MG Capsule PO (20:46)
[2020-01-19] MEDS: diazePAM 5 MG Tablet PO (20:46)
[2020-01-20] MEDS: oxyCODONE 5 MG Tablet PO ×4 (00:09→23:30)
[2020-01-20] MEDS: Acetaminophen 500 MG Tablet 1000 MG PO ×4 (00:09→19:17)
[2020-01-20 02:00] VITALS: BP 116/67; PULSE 88; RESP 16; TEMP 36.8; O2SAT 100
[2020-01-20] MEDS: HYDROmorphone 1 MG/ML Syringe IV ×5 (02:07→21:45)
[2020-01-20] MEDS: diazePAM 5 MG Tablet PO ×4 (02:48→23:24)
[2020-01-20] MEDS: Cefazolin 1 GM/50 ML BAG IV ×3 (06:16→23:23)
[2020-01-20] MEDS: 0.9% Saline Lock 10 ML Syringe IV ×2 (06:17→17:27)
[2020-01-20 06:58] LABS: Hematocrit 40.4 % (37-47); Hemoglobin 13.1 g/dL (12.0-15.0); Mean Corp Hgb Conc 32.4 g/dL (32-36); Mean Corpuscular Hgb 30.2 pg (27.0-32.0); Mean Corpuscular Volume 93.1 fL (81-99); Mean Platelet Vol. 9.3 fl (6.2-12.0); Platelet Count 352 K/mm3 (150-450); RBC Distribution Width CV 12.6 % (11.6-14.6); RBC Distribution Width SD 43.5 fl (35.1-43.9); Red Blood Count 4.34 M/mm3 (4.2-5.4); White Blood Count 12.5 K/mm3 (4.4-11.0)
[2020-01-20 07:40] LABS: Anion Gap 3 (5-15); BUN 8 mg/dL (7-18); BUN/Creat Ratio 11.4 RATIO (10-20); Calcium,Total 8.3 mg/dL (8.5-10.1); Chloride 105 mmol/L (98-107); EST Glomerular Filtration Rate 101 mL/min (>60); Est Glom Filt Rate - Afr Amer 122 mL/min (>60); Estimated Creatinine Clearance 113.16 ml/min; Glucose 100 mg/dL (74-106); Prealbumin 21.2 mg/dL (20.0-40.0); Sodium Level 136 mmol/L (136-145)
[2020-01-20 09:16] VITALS: BP 122/58; PULSE 88; RESP 16; TEMP 36.9; O2SAT 99
[2020-01-20] MEDS: Ensure Surgery 237 ML LIQUID PO ×3 (09:26→17:24)
[2020-01-20] MEDS: Gabapentin 100 MG Capsule 200 MG PO ×3 (09:26→17:28)
[2020-01-20] MEDS: Enoxaparin 40 MG/0.4 ML Syringe SC (09:27)
[2020-01-20] MEDS: Docusate Sodium 100 MG Capsule PO ×2 (09:27→21:45)
[2020-01-20 10:10] VITALS: O2SAT 92
--- NOTE | 2020-01-20 14:01 | CASEMGMT ---
RN CM NOTE: Per Dr Landa, he anticipates pt will be ready for discharge tomorrow. RN CM to room to talk with pt. Introduced self and role of RN CM. Pt denies having any needs, questions, or concerns w/going home @ discharge. Pt made aware to ask for RN CM if any needs arise. Pt voices understanding. Ruth DE ANDA RN CM
[2020-01-20] MEDS: Lactated Ringers 1,000 ML 60 ML IV (15:31)
[2020-01-20 16:04] VITALS: BP 118/76; PULSE 87; RESP 18; TEMP 36.8; O2SAT 98
--- NOTE | 2020-01-20 17:30 | PCM.PN.SRG ---
Subjective: Post op day #1 Patient continues to require IV pain meds to help control pain. - Physical Exam Vitals/I&O's: Vital Signs Temp Pulse Resp BP Pulse Ox 98.3 F 87 18 118/76 98 01/20/20 16:04 01/20/20 16:04 01/20/20 16:04 01/20/20 16:04 01/20/20 16:04 Oxygen Flow Rate (L/min) 6 Oxygen Delivery Method Room Air Weight: 232 lb 2.348 oz Body Mass Index (BMI) 35.3 Intake and Output for Last 24 Hours 01/18/20 01/19/20 01/20/20 23:59 23:59 23:59 Intake Total 3175.50 / 3175.50 2065 / 2065 Output Total 1805 / 1805 3485 / 3485 Balance 1370.50 / 1370.50 -1420 / -1420 Two Arnol drains draining 135 cc total of serosanguineous drainage yesterday. General: Alert, Oriented x3, Cooperative HEENT: Atraumatic Oral: Moist Mucosa Lungs: Normal air movement Cardiovascular: Regular rate Extremities: Capillary Refill Less than 3 Seconds Skin: Ulcer/ Wound - Operative dressing removed. Incisions are dry and intact. No bleeding or bruising noted. Arnol drains draining serosanguineous drainage. ABD pad applied to incisions and ROBYN wrap for compression applied. Musculoskeletal: No Tenderness to Palpation of Joints or Extremities Neurological: Cranial nerves II-XII grossly intact Psych/Mental Status: Normal Affect, Appropriate Laboratory Results 01/20/20 05:15: Sodium 136, Potassium 4.0, Chloride 105, Carbon Dioxide 28.0, Anion Gap 3 L, BUN 8, Creatinine 0.70, Estim Creat Clear Calc 113.16, Est GFR (MDRD) Af Amer 122, Est GFR (MDRD) Non-Af 101, BUN/Creatinine Ratio 11.4, Glucose 100, Calcium 8.3 L, Prealbumin 21.2 01/20/20 05:15: WBC 12.5 H, RBC 4.34, Hgb 13.1, Hct 40.4, MCV 93.1, MCH 30.2, MCHC 32.4, RDW Std Deviation 43.5, RDW Coeff of Tae 12.6, Plt Count 352, MPV 9.3 Current Medications Acetaminophen (Tylenol) 1,000 mg PO Q6 [facility] Last Admin: 01/20/20 11:46 Dose: 1,000 mg Documented by: Diazepam (Valium) 5 mg PO 4X/DAY PRN PRN PRN Reason: SPASMS Last Admin: 01/20/20 17:27 Dose: 5 mg Documented by: Docusate Sodium (Colace) 100 mg PO BID [facility] Last Admin: 01/20/20 09:27 Dose: 100 mg Documented by: Enoxaparin Sodium (Lovenox) 40 mg SC DAILY [facility] Last Admin: 01/20/20 09:27 Dose: 40 mg Documented by: Enteral Nutritional Formula (Ensure Surgery) 237 ml PO TIDCM [facility] Last Admin: 01/20/20 17:24 Dose: 237 ml Documented by: Gabapentin (Neurontin) 200 mg PO TIDCM [facility] Last Admin: 01/20/20 17:28 Dose: 200 mg Documented by: Hydromorphone HCl (Dilaudid Inj) 0.5 - 1 mg IV Q3H PRN PRN PRN Reason: Pain Score 6-10/10 Last Admin: 01/20/20 17:26 Dose: 1 mg Documented by: Cefazolin Sodium () 1 gm in 50 mls @ 100 mls/hr IV Q8H [facility] Last Infusion: 01/20/20 16:07 Dose: Infused Documented by: Sodium Chloride () 250 mls @ 15 mls/hr IV .[id number] PRN PRN Reason: Saline Flush Sodium Chloride () 250 mls @ 15 mls/hr IV .[id number] PRN PRN Reason: Additional IVPB Infusion Insulin Human Lispro (Humalog Kwikpen (Bkc)) 1 - 6 unit SC Q4H PRN PRN; Protocol PRN Reason: BG>/= 180, SEE PROTOCOL Magnesium Chloride (Mag64) 128 mg PO DAILY PRN PRN PRN Reason: Constipation Ondansetron HCl (Zofran Odt) 4 mg PO Q6H PRN PRN PRN Reason: NAUSEA Last Admin: 01/19/20 16:19 Dose: 4 mg Documented by: Oxycodone HCl (Oxyir) 5 - 10 mg PO Q4H PRN PRN PRN Reason: Pain Score 4-10/10 Last Admin: 01/20/20 15:35 Dose: 10 mg Documented by: Sodium Chloride () 10 - 40 ml IV UD PRN PRN Reason: SALINE FLUSH Last Admin: 01/20/20 17:27 Dose: 10 ml Documented by: Medical Necessity - Tobacco Use Smoking Status: Former smoker Assessment/Plan All Active Problems (Last Updated 01/20/20 @ 17:44 by Ree Pa RADIOSONDE SPECIALIST, RADIOSONDE SPECIALIST-C) Palpitations (Acute) False labor before 37 completed weeks of gestation (Resolved) Acute cystitis (Resolved) 1. Painful areolar scarring bilateral breast reconstruction. 2. Acquired absence bilateral breasts and nipples. 3. Prophylactic bilateral breast removal (areolar sparing). 4. 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 5. Deformity reconstructed breasts. 6. Painful pectoralis muscle animation deformity. 7. Capsular contracture bilateral breast reconstruction. 8. History of bilateral breast implants reconstruction. 9. Family history of breast cancer. 10. Former smoker. Post op day #1 from 1. Revision bilateral breast reconstruction with removal of bilateral cohesive gel implants and bilateral capsulectomy. 2. Revision bilateral pectoralis muscle animation deformity with placement bilateral prepectoral tissue expanders (700 ml filled to 400 ml) and placement of bilateral acellular dermal matrix graft Operative dressing removed. Incisions are dry and intact. Arnol drains draining serosanguineous drainage. Continue ROBYN wraps for compression. Receiving Cefazolin IV. Patient is still requiring occasional IV pain meds for pain control. Prealbumin today is 21.2. Encouraged protein intake to help with healing. Plan for discharge tomorrow.
[2020-01-20 20:00] VITALS: BP 104/60; PULSE 98; RESP 16; TEMP 36.9; O2SAT 100
[2020-01-21] MEDS: Ondansetron ODT 4 MG Tablet PO ×2 (00:01→12:14)
[2020-01-21] MEDS: Acetaminophen 500 MG Tablet 1000 MG PO ×4 (00:14→19:25)
[2020-01-21 02:00] VITALS: BP 118/65; PULSE 87; RESP 18; TEMP 36.8; O2SAT 100
[2020-01-21] MEDS: oxyCODONE 5 MG Tablet PO ×2 (04:55→15:20)
[2020-01-21] MEDS: Cefazolin 1 GM/50 ML BAG IV ×3 (06:19→23:47)
[2020-01-21] MEDS: HYDROmorphone 1 MG/ML Syringe IV ×4 (06:19→20:48)
[2020-01-21 07:35] VITALS: BP 115/71; PULSE 90; RESP 16; TEMP 36.6; O2SAT 96
[2020-01-21] MEDS: Gabapentin 100 MG Capsule 200 MG PO ×3 (07:37→17:26)
[2020-01-21] MEDS: Ensure Surgery 237 ML LIQUID PO ×3 (07:37→17:25)
[2020-01-21] MEDS: Enoxaparin 40 MG/0.4 ML Syringe SC (07:37)
[2020-01-21] MEDS: Docusate Sodium 100 MG Capsule PO ×2 (07:37→20:47)
[2020-01-21] MEDS: 0.9% Saline Lock 10 ML Syringe IV ×3 (09:55→20:48)
[2020-01-21] MEDS: diazePAM 5 MG Tablet PO ×2 (12:08→20:48)
--- NOTE | 2020-01-21 13:28 | PN.SURG_ITS ---
Subjective: Post op day #2. Patient in bed, complaining of increased pain and fatigue. - Physical Exam Vitals/I&O's: Vital Signs Temp Pulse Resp BP Pulse Ox 97.8 F 90 16 115/71 96 01/21/20 07:35 01/21/20 07:35 01/21/20 07:35 01/21/20 07:35 01/21/20 07:35 Oxygen Flow Rate (L/min) 6 Oxygen Delivery Method Room Air Weight: 232 lb 2.348 oz Body Mass Index (BMI) 35.3 Intake and Output for Last 24 Hours 01/19/20 01/20/20 01/21/20 23:59 23:59 23:59 Intake Total 3175.50 / 3175.50 3182.33 / 4182.33 3050 / 3050 Output Total 1805 / 1805 5485 / 6605 2815 / 2815 Balance 1370.50 / 1370.50 -2302.67 / -2422.67 235 / 235 General: Alert, Oriented x3, Cooperative HEENT: Atraumatic Oral: Moist Mucosa Lungs: Clear to auscultation Cardiovascular: Regular rate Abdomen: Soft Extremities: Capillary Refill Less than 3 Seconds Skin: Incision - Incisions are dry and intact. GABRIELLE drains draining serosanguineous drainage. Musculoskeletal: No Tenderness to Palpation of Joints or Extremities Neurological: Cranial nerves II-XII grossly intact Psych/Mental Status: Normal Affect, Appropriate Current Medications Acetaminophen (Tylenol) 1,000 mg PO Q6 [facility] Last Admin: 01/21/20 12:06 Dose: 1,000 mg Documented by: Diazepam (Valium) 5 mg PO 4X/DAY PRN PRN PRN Reason: SPASMS Last Admin: 01/21/20 12:08 Dose: 5 mg Documented by: Docusate Sodium (Colace) 100 mg PO BID [facility] Last Admin: 01/21/20 07:37 Dose: 100 mg Documented by: Enoxaparin Sodium (Lovenox) 40 mg SC DAILY [facility] Last Admin: 01/21/20 07:37 Dose: 40 mg Documented by: Enteral Nutritional Formula (Ensure Surgery) 237 ml PO TIDCM [facility] Last Admin: 01/21/20 12:05 Dose: 237 ml Documented by: Gabapentin (Neurontin) 200 mg PO TIDCM [facility] Last Admin: 01/21/20 12:05 Dose: 200 mg Documented by: Hydromorphone HCl (Dilaudid Inj) 0.5 - 1 mg IV Q3H PRN PRN PRN Reason: Pain Score 6-10/10 Last Admin: 01/21/20 09:54 Dose: 1 mg Documented by: Cefazolin Sodium () 1 gm in 50 mls @ 100 mls/hr IV Q8H JT Last Infusion: 01/21/20 07:40 Dose: Infused Documented by: Sodium Chloride () 250 mls @ 15 mls/hr IV .[id number] PRN PRN Reason: Saline Flush Sodium Chloride () 250 mls @ 15 mls/hr IV .[id number] PRN PRN Reason: Additional IVPB Infusion Insulin Human Lispro (Humalog Kwikpen (Bkc)) 1 - 6 unit SC Q4H PRN PRN; Protocol PRN Reason: BG>/= 180, SEE PROTOCOL Magnesium Chloride (Mag64) 128 mg PO DAILY PRN PRN PRN Reason: Constipation Ondansetron HCl (Zofran Odt) 4 mg PO Q6H PRN PRN PRN Reason: NAUSEA Last Admin: 01/21/20 12:14 Dose: 4 mg Documented by: Oxycodone HCl (Oxyir) 5 - 10 mg PO Q4H PRN PRN PRN Reason: Pain Score 4-10/10 Last Admin: 01/21/20 04:55 Dose: 10 mg Documented by: Sodium Chloride () 10 - 40 ml IV UD PRN PRN Reason: SALINE FLUSH Last Admin: 01/21/20 09:55 Dose: 10 ml Documented by: Medical Necessity - Tobacco Use Smoking Status: Former smoker Assessment/Plan All Active Problems (Last Updated 01/20/20 @ 17:44 by Ree Pa HUMAN RESOURCE ASSISTANT, HUMAN RESOURCE ASSISTANT- C) Palpitations (Acute) False labor before 37 completed weeks of gestation (Resolved) Acute cystitis (Resolved) 1. Painful areolar scarring bilateral breast reconstruction. 2. Acquired absence bilateral breasts and nipples. 3. Prophylactic bilateral breast removal (areolar sparing). 4. 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 5. Deformity reconstructed breasts. 6. Painful pectoralis muscle animation deformity. 7. Capsular contracture bilateral breast reconstruction. 8. History of bilateral breast implants reconstruction. 9. Family history of breast cancer. 10. Former smoker. Post op day #2 from 1. Revision bilateral breast reconstruction with removal of bilateral cohesive gel implants and bilateral capsulectomy. 2. Revision bilateral pectoralis muscle animation deformity with placement bilateral prepectoral tissue expanders (700 ml filled to 400 ml) and placement of bilateral acellular dermal matrix graft Incisions are dry and intact. Arnol drains draining serosanguineous drainage. Continue ROBYN wraps for compression. Receiving Cefazolin IV. Patient states pain has bee worse today so she is still requiring occasional IV pain meds for pain control. Prealbumin today is 21.2. Encouraged protein intake to help with healing. Plan for discharge tomorrow.
[2020-01-21 13:36] VITALS: TEMP 36.7
[2020-01-21 15:15] VITALS: BP 131/69; PULSE 105; RESP 18; TEMP 37.1; O2SAT 98
[2020-01-21 15:36] VITALS: O2SAT 99
[2020-01-21] MEDS: Aspirin 325 MG Tablet PO (15:40)
[2020-01-21] MEDS: Caffeine 200 MG Tablet 100 MG PO (15:40)
[2020-01-21] MEDS: Lactated Ringers 1,000 ML 100 ML IV (15:41)
[2020-01-21 20:37] VITALS: BP 128/69; PULSE 88; RESP 18; TEMP 37.3; O2SAT 99
[2020-01-22] MEDS: Acetaminophen 500 MG Tablet 1000 MG PO ×2 (00:48→06:32)
[2020-01-22] MEDS: Lactated Ringers 1,000 ML 100 ML IV (00:49)
[2020-01-22 04:03] VITALS: BP 126/65; PULSE 83; RESP 18; TEMP 36.4; O2SAT 98
[2020-01-22] MEDS: HYDROmorphone 1 MG/ML Syringe IV ×2 (04:12→11:40)
[2020-01-22] MEDS: 0.9% Saline Lock 10 ML Syringe IV ×2 (04:12→11:45)
[2020-01-22] MEDS: Cefazolin 1 GM/50 ML BAG IV (06:33)
--- NOTE | 2020-01-22 09:58 | PCM.DC ---
You will use the following diet at home:: No restrictions Discharge Activity: May not drive while taking narcotic pain medications., May Not Shower - until the drains are removed., - - keep head elevated. no heavy lifting. May shower in (days): 14 - after the drains are removed. May resume sexual activity in: No Restrictions Weight Bearing Status: Weight bearing as tolerated Lifting Restrictions: 20 lbs. Keep extremity elevated above heart level: - - elevate head. Call your doctor if your incision/area has: Continuous Slow Oozing, Sudden Increased Bleeding, Increased Pain/ Swelling, Increased Redness, Foul Smelling Discharge, Swelling at the incision site Call your doctor if you observe: Fever of 101 or Higher, Coldness, Increased Pain, Shortness of breath, Chest pain, Calf discomfort, Uncontrolled pain Suture Line Care: - - dry dressings daily. Change Dressing in (Days):: 1 - dry dressings daily. Cleanse incision/area with: - - may get incisions wet in the shower after the drains are removed. Drain: Suction - ashley drain x2 to bulb suction. empty and record drainage daily. Allergies/Adverse Reactions: Allergies vancomycin Allergy (Intermediate, Verified 01/19/20 06:06) Hives Medications to take at Discharge Cefadroxil [Duricef] 500 mg PO BID #28 cap 01/22/20 Diazepam [Valium] 5 mg PO 4X/DAY PRN PRN #30 tablet 01/22/20 Docusate Sodium [Colace] 100 mg PO BID #60 cap 01/22/20 HYDROmorphone tablet [Dilaudid] 2 mg PO Q4H PRN PRN 7 Days #40 tablet 01/22/20 proMETHazine tablet [Phenergan tablet] 25 mg PO 4X/DAY PRN PRN #30 tab 01/22/20 The following prescriptions were given: Docusate Sodium [Colace] 100 mg PO BID #60 cap Transmission Status: Pending to [facility] HYDROmorphone tablet [Dilaudid] 2 mg PO Q4H PRN PRN 7 Days #40 tablet PRN Reason: Pain Score 6-10 Transmission Status: Sent to [facility] Cefadroxil [Duricef] 500 mg PO BID #28 cap Transmission Status: Pending to [facility] proMETHazine tablet [Phenergan tablet] 25 mg PO 4X/DAY PRN PRN #30 tab PRN Reason: Nausea Transmission Status: Pending to [facility] Diazepam [Valium] 5 mg PO 4X/DAY PRN PRN #30 tablet PRN Reason: Spasms Transmission Status: Sent to [facility] Primary Care Physician: Care Physician,No Primary [Primary Care Provider] - Test Results: Test results from this visit will be discussed in further detail at your follow-up appointment, if applicable. Please Follow Up With: Ceferino Landa MD When: one week. call [phone] for appt. Proposed Discharge Date: 01/22/20
[2020-01-22] MEDS: oxyCODONE 5 MG Tablet PO (10:01)
[2020-01-22] MEDS: Ensure Surgery 237 ML LIQUID PO ×2 (10:02→12:06)
[2020-01-22] MEDS: Gabapentin 100 MG Capsule 200 MG PO ×2 (10:02→12:00)
[2020-01-22] MEDS: diazePAM 5 MG Tablet PO (10:02)
[2020-01-22] MEDS: Enoxaparin 40 MG/0.4 ML Syringe SC (10:03)
[2020-01-22] MEDS: Docusate Sodium 100 MG Capsule PO (10:03)
[2020-01-22 10:05] VITALS: BP 127/70; PULSE 89; RESP 18; TEMP 36.8; O2SAT 97
--- NOTE | 2020-01-22 10:37 | PN.SURG_ITS ---
Subjective: Post op day #3 Sitting up in bed. States feeling better today. - Physical Exam Vitals/I&O's: Vital Signs Temp Pulse Resp BP Pulse Ox 98.3 F 89 18 127/70 H 97 01/22/20 10:05 01/22/20 10:05 01/22/20 10:05 01/22/20 10:05 01/22/20 10:05 Oxygen Flow Rate (L/min) 6 Oxygen Delivery Method Room Air Weight: 232 lb 2.348 oz Body Mass Index (BMI) 35.3 Intake and Output for Last 24 Hours 01/20/20 01/21/20 01/22/20 23:59 23:59 23:59 Intake Total 3182.33 / 4182.33 4480.00 / 4480.00 1556.66 / 1556.66 Output Total 5485 / 6605 3685 / 3685 2150 / 2150 Balance -2302.67 / -2422.67 795.00 / 795.00 -593.34 / -593.34 General: Alert, Oriented x3, Cooperative HEENT: Atraumatic Oral: Moist Mucosa Lungs: Normal air movement Cardiovascular: Regular rate Abdomen: Soft Extremities: Capillary Refill Less than 3 Seconds Skin: Incision - Bilateral breast incisions dry and intact. No bleeding or drainage. Wearing ROBYN wrap for compression. Arnol drains intact to bulb suction, draining serosanguineous drainager. Musculoskeletal: - - Having muscle spasms to the chest area. Neurological: Cranial nerves II-XII grossly intact Psych/Mental Status: Normal Affect, Appropriate Current Medications Acetaminophen (Tylenol) 1,000 mg PO Q6 [facility] Last Admin: 01/22/20 06:32 Dose: 1,000 mg Documented by: Diazepam (Valium) 5 mg PO 4X/DAY PRN PRN PRN Reason: SPASMS Last Admin: 01/22/20 10:02 Dose: 5 mg Documented by: Docusate Sodium (Colace) 100 mg PO BID [facility] Last Admin: 01/22/20 10:03 Dose: 100 mg Documented by: Enoxaparin Sodium (Lovenox) 40 mg SC DAILY [facility] Last Admin: 01/22/20 10:03 Dose: 40 mg Documented by: Enteral Nutritional Formula (Ensure Surgery) 237 ml PO TIDCM [facility] Last Admin: 01/22/20 10:02 Dose: 237 ml Documented by: Gabapentin (Neurontin) 200 mg PO TIDCM JT Last Admin: 01/22/20 10:02 Dose: 200 mg Documented by: Hydromorphone HCl (Dilaudid Inj) 0.5 - 1 mg IV Q3H PRN PRN PRN Reason: Pain Score 6-10/10 Last Admin: 01/22/20 04:12 Dose: 1 mg Documented by: Cefazolin Sodium () 1 gm in 50 mls @ 100 mls/hr IV Q8H [facility] Last Infusion: 01/22/20 07:03 Dose: Infused Documented by: Sodium Chloride () 250 mls @ 15 mls/hr IV .[id number] PRN PRN Reason: Saline Flush Sodium Chloride () 250 mls @ 15 mls/hr IV .[id number] PRN PRN Reason: Additional IVPB Infusion Lactated Ringer's () 1,000 mls @ 100 mls/hr IV .Q10H [facility] Last Infusion: 01/22/20 07:03 Dose: 100 mls/hr Documented by: Insulin Human Lispro (Humalog Kwikpen (Bkc)) 1 - 6 unit SC Q4H PRN PRN; Protocol PRN Reason: BG>/= 180, SEE PROTOCOL Magnesium Chloride (Mag64) 128 mg PO DAILY PRN PRN PRN Reason: Constipation Ondansetron HCl (Zofran Odt) 4 mg PO Q6H PRN PRN PRN Reason: NAUSEA Last Admin: 01/21/20 12:14 Dose: 4 mg Documented by: Oxycodone HCl (Oxyir) 5 - 10 mg PO Q4H PRN PRN PRN Reason: Pain Score 4-10/10 Last Admin: 01/22/20 10:01 Dose: 10 mg Documented by: Sodium Chloride () 10 - 40 ml IV UD PRN PRN Reason: SALINE FLUSH Last Admin: 01/22/20 04:12 Dose: 10 ml Documented by: Medical Necessity - Tobacco Use Smoking Status: Former smoker Assessment/Plan All Active Problems (Last Updated 01/20/20 @ 17:44 by Ree Pa FISH ICER, FISH ICER- C) Palpitations (Acute) False labor before 37 completed weeks of gestation (Resolved) Acute cystitis (Resolved) 1. Painful areolar scarring bilateral breast reconstruction. 2. Acquired absence bilateral breasts and nipples. 3. Prophylactic bilateral breast removal (areolar sparing). 4. 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 5. Deformity reconstructed breasts. 6. Painful pectoralis muscle animation deformity. 7. Capsular contracture bilateral breast reconstruction. 8. History of bilateral breast implants reconstruction. 9. Family history of breast cancer. 10. Former smoker. Post op day #3 from 1. Revision bilateral breast reconstruction with removal of bilateral cohesive gel implants and bilateral capsulectomy. 2. Revision bilateral pectoralis muscle animation deformity with placement bilateral prepectoral tissue expanders (700 ml filled to 400 ml) and placement of bilateral acellular dermal matrix graft Incisions are dry and intact. Arnol drains draining serosanguineous drainage. Continue ROBYN wraps for compression. Receiving Cefazolin IV. Will be discharged home on Cefadroxil. Patient states pain has better controlled with the IV pain meds. Will send her home on oral hydromorphone. Prealbumin today is 21.2. Encouraged protein intake to help with healing. Plan for discharge today.
--- NOTE | 2020-01-22 10:39 | CASEMGMT ---
RN CM Note: Intro role of CM to patient. she does not have a PCP. List given for [facility] and [facility] with [facility]. Patient is able to set up own appointments, declined needing assistance. No dc needs identified at this time. She will follow up with Dr. Landa for post surgery care. Miguel Angel DE ANDA RN ACM
[2020-01-22 11:46] LABS: Hematocrit 37.6 % (37-47); Mean Corp Hgb Conc 31.9 g/dL (32-36); Mean Corpuscular Hgb 30.2 pg (27.0-32.0); Mean Corpuscular Volume 94.7 fL (81-99); Mean Platelet Vol. 9.3 fl (6.2-12.0); Platelet Count 315 K/mm3 (150-450); RBC Distribution Width CV 12.3 % (11.6-14.6); RBC Distribution Width SD 42.9 fl (35.1-43.9); Red Blood Count 3.97 M/mm3 (4.2-5.4); White Blood Count 7.7 K/mm3 (4.4-11.0)
[2020-01-22 11:58] LABS: Anion Gap 3 (5-15); BUN 9 mg/dL (7-18); BUN/Creat Ratio 13.1 RATIO (10-20); Calcium,Total 8.7 mg/dL (8.5-10.1); Chloride 106 mmol/L (98-107); Creatinine, Serum 0.69 mg/dL (0.55-1.02); EST Glomerular Filtration Rate 103 mL/min (>60); Est Glom Filt Rate - Afr Amer 125 mL/min (>60); Glucose 106 mg/dL (74-106); Potassium 4.1 mmol/L (3.5-5.1); Sodium Level 139 mmol/L (136-145)
--- NOTE | 2020-01-22 17:47 | PCM.DC.SUM ---
Discharge Date and Diagnosis Date of Admission: 01/19/20 Date of Discharge: 01/22/20 - Primary Discharge Diagnosis Acute Problems: Painful areolar scarring bilateral breast reconstruction. Deformity reconstructed breasts. Painful pectoralis muscle animation deformity. Capsular contracture bilateral breast reconstruction. - Secondary Discharge Diagnosis Chronic Problems: History of bilateral breast implants reconstruction. Acquired absence bilateral breasts and nipples. Prophylactic bilateral breast removal (areolar sparing). 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 Family history of breast cancer. Former smoker. Hospital Course and Treatment Imaging Results: None. CONSULTATIONS None. Operations: - - 01/19/20 - 1. Revision bilateral breast reconstruction with removal of bilateral cohesive gel implants and bilateral capsulectomy. 2. Revision bilateral pectoralis muscle animation deformity with placement bilateral prepectoral tissue expanders (700 ml filled to 400 ml) and placement bilateral MTF FlexHD acellular dermal matrix grafts (21 x 24 cm on the left, and 23 x 26 cm on the right). Procedures: None Summary of Care Provided: Patient is a 34 year old female who presents for evaluation for breast reconstruction. She has a family history of breast cancer. Because of that, she underwent genetic testing in 2008. 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 With an increased risk of developing breast cancer, she underwent bilateral prophylactic mastectomy (areolar sparing) and placement of submuscular saline tissue expanders. This was followed by removal of the expanders with replacement implants. She states she developed issues with the breast reconstruction and underwent revision of her reconstructed breasts in 2011 with another saline tissue copy chaser. This was followed by removal of the expanders with replacement implants. She thinks they were cohesive gel implants. Also later on in 2011, she underwent bilateral nipple reconstruction which developed healing issues that required wound care and antibiotics until healed. She has persistent pain in her areolar areas from the scarring and a pectoralis muscle animation deformity when she uses her arms or exercises. She had an MRI done on 06/08/19. It showed right breast tissue is normal with a normal right breast implant in place. No abnormal masses or lesions are identified within the breast. There is an enhancing right axillary lymph node measuring about 2.14 cm x 0.6 cm in size probably representing a reactive lymph node. The left breast tissue is normal with a normal left breast implant in place. No abnormal masses or lesions are identified within the left breast. There are no abnormal enhancing masses or areas of non-mass enhancement in the left breast. There are no enlarged or abnormal lymph nodes. There is no abnormality in the visualized regions of the chest or liver. She presents for further breast reconstruction revision. She went to the operating room on 01/19/20 where she underwent revision bilateral breast reconstruction with removal of bilateral cohesive gel implants and bilateral capsulectomy and revision bilateral pectoralis muscle animation deformity with placement bilateral prepectoral tissue expanders (700 ml filled to 400 ml) and placement bilateral MTF FlexHD acellular dermal matrix grafts (21 x 24 cm on the left, and 23 x 26 cm on the right). She tolerated the procedure well. She was afebrile during her hospital stay. Her drainage ranged from 135 ml to 385 ml and 200 ml on the day of discharge. Her Prealbumin was 21.2. Encouraged nutritional supplementation with protein to help the healing process. She had postoperative pain and spasm that needed IV analgesia for a couple extra days. She was also unsteady on her feet with ambulation. On the third postoperative day, she tolerated po analgesia and was more steady on her feet with ambulation. She was discharged home in satisfactory condition. Followup office in one week. Will keep her head elevated during the initial postoperative period. She will wear a compression arron wrap and will be on a lifting restriction as well, 20 lbs. She will empty her drains daily and record the output. She will not be able to shower until the drains are removed. Wrote a script for Cefadroxil that she will take until the drains are removed. Wrote scripts for Dilaudid for pain (40 tabs) and for Valium for spasm (30 tabs). Wrote scripts for Phenergan for nausea (30 tabs) and a refill and for Colace for constipation (60 tabs). Will begin saline tissue expansion in 2 weeks or so. - Physical Exam Vitals/I&O's: Vital Signs Temp Pulse Resp BP Pulse Ox 98.3 F 89 18 127/70 H 97 01/22/20 10:05 01/22/20 10:05 01/22/20 10:05 01/22/20 10:05 01/22/20 10:05 Oxygen Flow Rate (L/min) 6 Oxygen Delivery Method Room Air Weight: 232 lb 2.348 oz Body Mass Index (BMI) 35.3 Intake and Output for Last 24 Hours 01/20/20 01/21/20 01/22/20 23:59 23:59 23:59 Intake Total 3182.33 / 4182.33 4480.00 / 4480.00 2953.33 / 2953.33 Output Total 5485 / 6605 3685 / 3685 4100 / 4100 Balance -2302.67 / -2422.67 795.00 / 795.00 -1146.67 / -1146.67 Laboratory Results 01/22/20 11:24: WBC 7.7, RBC 3.97 L, Hgb 12.0, Hct 37.6, MCV 94.7, MCH 30.2, MCHC 31.9 L, RDW Std Deviation 42.9, RDW Coeff of Tae 12.3, Plt Count 315, MPV 9.3 01/22/20 11:24: Sodium 139, Potassium 4.1, Chloride 106, Carbon Dioxide 30.0, Anion Gap 3 L, BUN 9, Creatinine 0.69, Estim Creat Clear Calc 114.80, Est GFR (MDRD) Af Amer 125, Est GFR (MDRD) Non-Af 103, BUN/Creatinine Ratio 13.1, Glucose 106, Calcium 8.7 Discharge Diet: No Restrictions Discharge Activity: May not drive while taking narcotic pain medications., May Not Shower - until the drains are removed., - - keep head elevated. no heavy lifting. May shower in (days): 14 - after the drains are removed. May resume sexual activity in: No Restrictions Weight Bearing Status: Weight bearing as tolerated Lifting Restrict to (lbs):: 20 Keep extremity elevated above heart level: - - elevate head. Call your doctor if your incision/area has: Continuous Slow Oozing, Sudden Increased Bleeding, Increased Pain/ Swelling, Increased Redness, Foul Smelling Discharge, Swelling at the incision site Call your doctor if you observe: Fever of 101 or Higher, Coldness, Increased Pain, Shortness of breath, Chest pain, Calf discomfort, Uncontrolled pain Suture Line Care: - - dry dressings daily. Change Dressing in (Days):: 1 - dry dressings daily. Cleanse incision/area with: - - may get incisions wet in the shower after the drains are removed. Drain: Suction - ashley drain x2 to bulb suction. empty and record drainage daily. Home Medications: Medications to take at Discharge Cefadroxil [Duricef] 500 mg PO BID #28 cap 01/22/20 Diazepam [Valium] 5 mg PO 4X/DAY PRN PRN #30 tab 01/22/20 Docusate Sodium [Colace] 100 mg PO BID #60 cap 01/22/20 HYDROmorphone tablet [Dilaudid] 2 mg PO Q4H PRN PRN 7 Days #40 tab 01/22/20 proMETHazine tablet [Phenergan tablet] 25 mg PO 4X/DAY PRN PRN #30 tab 01/22/20 Following Prescriptions Were Given to Patient: Docusate Sodium [Colace] 100 mg PO BID #60 cap Transmission Status: Received by [facility] HYDROmorphone tablet [Dilaudid] 2 mg PO Q4H PRN PRN 7 Days #40 tab PRN Reason: Pain Score 6-10 Transmission Status: Received by [facility] Cefadroxil [Duricef] 500 mg PO BID #28 cap Transmission Status: Received by [facility] proMETHazine tablet [Phenergan tablet] 25 mg PO 4X/DAY PRN PRN #30 tab PRN Reason: Nausea Transmission Status: Received by [facility] Diazepam [Valium] 5 mg PO 4X/DAY PRN PRN #30 tab PRN Reason: Spasms Transmission Status: Received by [facility] Primary Care Physician: Care Physician,No Primary [Primary Care Provider] - Please Follow Up With: Ceferino Landa MD When: one week. call [phone] for appt. Disposition: Home Minutes spent on discharge:: 35 Medical Necessity - Tobacco Use Smoking Status: Former smoker Meaningful Use Info Meaningful Use Diagnoses (Choose all that apply): None applicable
== END 2020-01-22 13:40 | disposition home or self-care (01) ==
LOC: SDC 13:54 → MS3 13:54
PROVIDERS: Anesthesiology; Admitting Provider Surgery; Referring Provider Surgery; Visit Provider Surgery
PROC: (CPT 19371; principal; 2020-01-19 07:15)
DX: N65.0 Deformity of reconstructed breast (principal); T85.44XA Capsular contracture of breast implant, initial encounter; Y82.8 Other medical devices associated with adverse incidents; Z11.59 Encounter for screening for other viral diseases; Z90.13 Acquired absence of bilateral breasts and nipples; L90.5 Scar conditions and fibrosis of skin; N64.4 Mastodynia; Z15.01 Genetic susceptibility to malignant neoplasm of breast; Z87.891 Personal history of nicotine dependence; Z80.3 Family history of malignant neoplasm of breast
CPT/HCPCS: 00402; 15777 ×2; 19357; 19371; 36415; 80048; 81025; 82962; 83735; 84134; 85027; 87635; 88305; 96361; 96365; 96366; 96372; 96375; 96376; 99218; 99251; C9803; J7120; A4216; G0378; G0379; G0463; J2405; Q9968; U0003

== ENCOUNTER 2020-01-30 13:29 | Emergency (ER) | payer OTHER, SELFPAY ==
[2020-01-30 13:30] VITALS: BP 139/97; PULSE 107; RESP 18; TEMP 36.4; O2SAT 99; BMI 34.9
--- NOTE | 2020-01-30 14:32 | ED.VIS.GEN ---
History of Present Illness Chief Complaint: Rash Informant: Patient Narrative: Patient states that yesterday she developed a rash on the palm of her right hand is extremely itchy is since spread to various areas on the palm somewhat on the dorsum particular by the thumb as well as similar places on the left hand. She states anything she can think of is used in Dreft clean a highchair. Otherwise she denies any other cleaning agents soaps lotions detergents. She is done some Benadryl cream and oral Benadryl which is helped but the rash still remains. She states it was very hive looking prior to the Benadryl. Then on the way to the emergency department she tripped on the sidewalk landing on her left breast area. She recently underwent breast reconstruction and has expanders in place. She notes soreness. She has no drain in place that was removed 3 days ago. - Past Medical History (1) BRCA2 gene mutation positive in female Status: Chronic Past Medical History - Allergies and Home Meds Allergies/Adverse Reactions: Allergies vancomycin Allergy (Intermediate, Verified 01/30/20 13:32) Marcie Primary Care Physician: Care Physician,No Primary [Primary Care Provider] - Prior records reviewed: Yes Surgical History: mastectomy, - - Rest reconstruction Smoking Status: Never smoker Drugs: None Review of Systems General: Denies: Chills, Fever, Sweats Eyes: Denies: Visual changes - bilaterally, Diplopia ENT: Denies: Rhinorrhea, Sore throat Cardiovascular: Reports: Chest pain. Denies: Palpitations Respiratory: Denies: Dyspnea, Cough, Dyspnea on exertion Gastrointestinal: Denies: Abdominal pain, Nausea, Vomiting, Diarrhea, Melena, Hematochezia Genitourinary: Denies: Dysuria, Hematuria, Frequency Musculoskeletal: Denies: Back pain, Extremity Pain Skin: Reports: Rash. Denies: Wounds Neurological: Denies: Headache, Weakness, Numbness Physical Exam Vital Signs/Narrative: Vital Signs Temp Pulse Resp BP Pulse Ox 01/30/20 13:30 97.6 F L 107 H 18 139/97 H 99 Inital Vital Signs reviewed: Yes General: Well nourished, Well developed, No Acute Distress Head: Normocephalic, Atraumatic Eyes: Perrl, EOMI ENT: Moist mucous membranes, No rhinorrhea Neck: Supple, Nontender Cardiovascular: Regular rate, Regular rhythm, No murmurs Respiratory: No distress, CTA bilaterally, - - Left breast was examined in the presence of nursing (Tori). No obvious hematoma was felt or seen. No ecchymosis or abrasions. Abdomen: Soft, Nontender, Nondistended, Normal bowel sounds Back: Nontender, Normal Inspection Extremities: Nontender, No edema Skin: Normal color, - - Bilateral palms appear to have a hive-like appearance of her rash on the palm and the webspace between thumb and index finger. This is similar to on the left side. Some areas are excoriated. There is nothing above the wrist. Neurological: Alert, Oriented x3, Cranial nerves II-XII grossly intact, Normal Strength, Normal Sensation Psychological: Normal affect, Normal Mood Diagnostic/Tx/Re-eval - Medical Decision Making Patient has follow-up with her plastic surgeon next week. I do not see any emergent cause that we would need to involve them in her care today. As far as the rash continued Benadryl topical or oral as well as some prednisone. Would recommend hydration of the skin with skin does appear somewhat dry even in the areas not near the hives. ED Disposition - Plan for ED Patient: Disposition: Home or Assisted Living Diagnosis: Chest wall contusion, Hives Instructions: ED URTICARIA Prescriptions: Prednisone [Deltasone] 60 mg PO DAILY #15 tab Prescription Printed Referrals: Ceferino Landa MD [STAFF PHYSICIAN] - Keep Joanne appointment
== END 2020-01-30 14:51 | disposition home or self-care (01) ==
LOC: ED 14:49
PROVIDERS: Emergency Provider Emergency Medicine
DX: S20.219A Contusion of unspecified front wall of thorax, initial encounter (principal); L50.9 Urticaria, unspecified; W01.0XXA Fall on same level from slipping, tripping and stumbling without subsequent striking against object, initial encounter; Y92.480 Sidewalk as the place of occurrence of the external cause
CPT/HCPCS: 99281; 99283

== ENCOUNTER 2020-04-12 15:52 | Observation (INO) | payer OTHER, SELFPAY ==
--- NOTE | 2020-04-11 23:36 | PCM.HP.BLA ---
History and Physical Date of Admission: 04/12/20 HISTORY OF PRESENT ILLNESS Patient is a 34 year old female who initially presented for evaluation for breast reconstruction. She has a family history of breast cancer. Because of that, she underwent genetic testing in 2008. 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 With an increased risk of developing breast cancer, she underwent bilateral prophylactic mastectomy (areolar sparing) and placement of submuscular saline tissue expanders. This was followed by removal of the expanders with replacement implants. She states she developed issues with the breast reconstruction and underwent revision of her reconstructed breasts in 2011 with another saline tissue pharmacy data analyst. This was followed by removal of the expanders with replacement implants. She thinks they were cohesive gel implants. Also later on in 2011, she underwent bilateral nipple reconstruction which developed healing issues that required wound care and antibiotics until healed. She has persistent pain in her areolar areas from the scarring and a pectoralis muscle animation deformity when she uses her arms or exercises. She had an MRI done on 06/08/19. It showed right breast tissue is normal with a normal right breast implant in place. No abnormal masses or lesions are identified within the breast. There is an enhancing right axillary lymph node measuring about 2.14 cm x 0.6 cm in size probably representing a reactive lymph node. The left breast tissue is normal with a normal left breast implant in place. No abnormal masses or lesions are identified within the left breast. There are no abnormal enhancing masses or areas of non-mass enhancement in the left breast. There are no enlarged or abnormal lymph nodes. There is no abnormality in the visualized regions of the chest or liver. She went to surgery on 01/19/20 where she underwent revision bilateral breast reconstruction with removal of bilateral cohesive gel implants and bilateral capsulectomy and revision bilateral pectoralis muscle animation deformity with placement bilateral prepectoral tissue expanders (700 ml filled to 400 ml) and placement bilateral MTF FlexHD acellular dermal matrix grafts (21 x 24 cm on the left, and 23 x 26 cm on the right). Healing has been uneventful and she presents today for the next stage in her breast reconstruction process which is removal of the saline tissue expanders with replacement cohesive gel implants bilaterally. She has complained about persistent pulling in the lateral aspect right breast reconstruction. 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 BRCA2 gene mutation positive in female Palpitations False labor before 37 completed weeks of gestation Acute cystitis PAST SURGICAL HISTORY bilateral breast implants delivery bilateral mastectomy open reduction and internal fixation (ORIF) procedure salpingectomy tonsillectomy Revision bilateral breast reconstruction with removal of bilateral cohesive gel implants and bilateral capsulectomy and revision bilateral pectoralis muscle animation deformity with placement bilateral prepectoral tissue expanders (700 ml filled to 400 ml) and placement bilateral MTF FlexHD acellular dermal matrix grafts (21 x 24 cm on the left, and 23 x 26 cm on the right) - 01/19/20 ALLERGIES vancomycin MEDICATIONS None. FAMILY HISTORY Grandmother - Cancer, breast and uterine Aunt - Cancer, multiple aunts with breast cancer SOCIAL HISTORY Smoking Status: Former smoker how long ago did patient quit smokin alcohol intake: current substance use type: does not use REVIEW OF SYSTEMS General - Denies fever, fatigue, and weight loss. Eyes - Denies cataracts and glaucoma. ENT - Denies nasal congestion and sore throat. Endocrine - Denies excessive thirst and urination. Skin - Denies suspicious lesions and skin cancer. Breast - Bilateral mastectomy with reconstruction 2009. Reconstruction revised 2011. Has bilateral areolar pain and pectoralis muscle animation deformity. Musculoskeletal - Denies joint pain, joint stiffness, weakness of muscles and joints, back pain, and arthritis. ORIF left clavicle 2003. Neuro - Denies headaches. Cardiovascular - Denies chest pain, fatigue, and shortness of breath with exertion. Psych - Denies anxiety and depression. Respiratory - Denies chronic cough and shortness of breath. Gastrointestinal - Denies nausea, vomiting, diarrhea, and constipation. Hematologic - Denies abnormal bruising and bleeding. Genitourinary - Denies hematuria and urinary frequency. Right salpingectomy 2013. section 2019. PHYSICAL EXAMINATION General - Alert and oriented. Bra size is 36 A-B. HEENT - PERRL. EOMI. Throat is clear. Neck - Supple and non-tender. No cervical adenopathy. Breasts - Bilateral breast incisions are healed. Has palpable expanders bilaterally. No breast masses palpable. Mild tenderness at areolar scar bilaterally. No visible pectoralis muscle animation deformity bilaterally. Patient still feels pulling on the chest wall laterally on the right. No axillary adenopathy. Breast width is 14 cm bilaterally. Some discomfort areolar areas, improved since the last surgery. Lungs- Clear to auscultation. Heart - Regular rate and rhythm. Abdomen - Soft and non distended. There is a horizontal scar in pubic area. There is redundant skin and subcutaneous tissue between the umbilicus and the pubic area. Extremities - FROM. No axillary adenopathy. Radial pulses are palpable. Neuro - CN II-XII grossly intact. Psych - Normal mood and affect. ASSESSMENT 1. Painful areolar scarring bilateral breast reconstruction, improved since the last surgery. 2. Acquired absence bilateral breasts and nipples. 3. Prophylactic bilateral breast removal (areolar sparing). 4. 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 5. Deformity reconstructed breasts. 6. Painful pectoralis muscle animation deformity, improved after placement of prepectoral saline tissue expanders. 7. Capsular contracture bilateral breast reconstruction, improved after capsulectomies. 8. History of placement of bilateral saline tissue expanders reconstruction. 9. Family history of breast cancer. 10. Former smoker. PLAN She had revision breast reconstruction on 01/19/20 where she underwent revision bilateral breast reconstruction with removal of bilateral cohesive gel implants and bilateral capsulectomy and revision bilateral pectoralis muscle animation deformity with placement bilateral prepectoral tissue expanders (700 ml filled to 400 ml) and placement bilateral MTF FlexHD acellular dermal matrix grafts (21 x 24 cm on the left, and 23 x 26 cm on the right). She healed uneventfully. She still has some pulling on the lateral aspect right breast. Will explore that area at the next surgery to see if additional scar tissue needs to be released. She presents today for the next stage in her breast reconstruction process which is removal of saline tissue expanders with replacement cohesive gel implants bilaterally. Will see if additional acellular dermal matrix graft needs to be placed as well for additional soft tissue coverage since the implants will be in the prepectoral position. Surgery will be done under general anesthesia with a surgical observation overnight stay in the hospital. She will have drains in for several days and be maintained on antibiotics until the drains are removed. Any tissue that is removed at the time of surgery will be sent to Pathology for analysis to rule out carcinoma. Patient was informed of the risks and complications of the procedure including alternatives to surgery. These were discussed with the patient personally. Patient voices understanding and wishes to proceed. Some of the risks and complications were included in a form from the [place] [employer]. After healing has occurred, can then address the areolar scarring if there remains persistent discomfort. Hopefully with the capsulectomy, the painful areolar scarring will improve. If not, can consider removing the areola with a completion mastectomy. Later on can proceed with nipple reconstruction with intradermal tattooing. The other option for breast reconstruction is using autogenous tissue. A bilateral TRAM flap was discussed. She is interested but not right now since she is thinking of having another baby. If she does decide on a TRAM flap in the future, there is the pedicled flap versus a microvascular free tissue transfer flap. The microvascular free tissue transfer flap has the benefit of decreased risk for a hernia. It does require the use of a microscope and would be done at a tertiary center. The pedicled flap can be done here in [place]. We discussed the current risks associated with COVID-19. While it is understood that there is a community spread of COVID-19, the risk of radha COVID-19 while at [facility] ([facility]) is very low; however, the risk cannot be completely mitigated because of the community spread of the disease. We discussed in detail the risk of exposure to and/or potential harm posed by the COVID-19 virus with having a surgery/procedure at this time versus the risk of delaying the surgery/procedure. It is not possible to know either the risk of delaying the surgery or procedure or chance of getting an infection with perfect accuracy, but a joint decision was made to proceed at this time with the scheduled surgery/procedure as indicated on the consent form. Patient was notified that we will need to comply with any screening or testing [facility] wishes to perform or that surgery may be delayed for any positive results. Discussed with the patient that I was tested for COVID-19 on 10/15/19 which was negative and on 10/29/19 which was negative and on 11/12/19 which was negative and on 11/26/19 which was negative and on 12/10/19 which was negative and on 12/31/19 which was negative and on 01/21/20 which was negative and on 02/25/20 which was negative and on 03/17/20 which was negative and on 04/05/20 which was negative. My testing regimen at this time is to be COVID-19 tested every 2 weeks or so. Procedure Criteria Procedure Type: Elective COVID Risk Discussion: The surgeon/proceduralist and patient have discussed in detail the risk of exposure to and/or potential harm posed by the COVID-19 virus with having a surgery/procedure at this time versus the risk of delaying the surgery/procedure. It is not possible to know either the risk of delaying the surgery or procedure or chance of getting an infection with perfect accuracy, but a joint decision was made between the patient and the surgeon/proceduralist to proceed at this time with the scheduled surgery/procedure as indicated on the consent form.
[2020-04-12] VITALS (12 sets, daily range): BP systolic 109–139; BP diastolic 64–90; PULSE 74–108; RESP 14–18; TEMP 36.2–36.8; O2SAT 94–100; BMI 35.7; BMI 35.6
[2020-04-12 06:00] LABS: Internal QC Validated? YES +Cl - CLEAR BKGD; Pregnancy, Urine Negative Negative
[2020-04-12] MEDS: Lactated Ringers 1,000 ML 40 ML IV (06:25)
[2020-04-12] MEDS: Acetaminophen 500 MG Tablet 1000 MG PO ×2 (06:25→18:15)
[2020-04-12] MEDS: Scopolamine 1mg/72hr Patch 1 PATCH TD (06:25)
[2020-04-12] MEDS: Gabapentin 600 MG Tablet PO (06:25)
[2020-04-12 06:35] LABS: Bedside Glucose 82 mg/dL (70-110)
[2020-04-12] MEDS: Cefazolin 2 GM in 0.9% Normal Saline 100 ML IV (07:34)
[2020-04-12] MEDS: Lidocaine 1%/Epi 1:200 (30ml) 30 ML AMPUL (08:20)
[2020-04-12] MEDS: Lactated Ringers 1,000 ML 60 ML IV ×3 (11:00→16:39)
--- NOTE | 2020-04-12 15:40 | OP.PCM_ITS ---
Report of Operation Date of Procedure: 04/12/20 Pre-Operative Diagnosis: 1. Painful areolar scarring bilateral breast rec onstruction, improved since the last surgery. 2. Acquired absence bilateral breasts and nipples. 3. Prophylactic bilateral breast removal (areolar sparing). 4. 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 5. Deformity reconstructed breasts. 6. Painful pectoralis muscle animation deformity, improved after placement of prepectoral saline tissue expanders. 7. Capsular contracture bilateral breast reconstruction, improved after capsulectomies. 8. History of placement of bilateral saline tissue expanders reconstruction. 9. Family history of breast cancer. 10. Former smoker. Post-Operative Diagnosis: Same. Surgery/Procedure Performed:: 1. Delayed left breast reconstruction with removal of saline tissue veterinary surgery technologist and replacement prepectoral cohesive gel implant (800 ml). 2. Delayed right breast reconstruction with removal of saline tissue veterinary surgery technologist and replacement prepectoral cohesive gel implant (800 ml). Description of Surgical Findings:: Patient is a 34 year old female who initially presented for evaluation for breast reconstruction. She has a family history of breast cancer. Because of that, she underwent genetic testing in 2008. 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 With an increased risk of developing breast cancer, she underwent bilateral prophylactic mastectomy (areolar sparing) and placement of submuscular saline tissue expanders. This was followed by removal of the expanders with replacement implants. She states she developed issues with the breast reconstruction and underwent revision of her reconstructed breasts in 2011 with another saline tissue veterinary surgery technologist. This was followed by removal of the expanders with replacement implants. She thinks they were cohesive gel implants. Also later on in 2011, she underwent bilateral nipple reconstruction which developed healing issues that required wound care and antibiotics until healed. She has persistent pain in her areolar areas from the scarring and a pectoralis muscle animation deformity when she uses her arms or exercises. She had an MRI done on 06/08/19. It showed right breast tissue is normal with a normal right breast implant in place. No abnormal masses or lesions are identified within the breast. There is an enhancing right axillary lymph node measuring about 2.14 cm x 0.6 cm in size probably representing a reactive lymph node. The left breast tissue is normal with a normal left breast implant in place. No abnormal masses or lesions are identified within the left breast. There are no abnormal enhancing masses or areas of non-mass enhancement in the left breast. There are no enlarged or abnormal lymph nodes. There is no abnormality in the visualized regions of the chest or liver. She went to surgery on 01/19/20 where she underwent revision bilateral breast reconstruction with removal of bilateral cohesive gel implants and bilateral capsulectomy and revision bilateral pectoralis muscle animation deformity with placement bilateral prepectoral tissue expanders (700 ml filled to 400 ml) and placement bilateral MTF FlexHD acellular dermal matrix grafts (21 x 24 cm on the left, and 23 x 26 cm on the right). Healing has been uneventful and she presents today for the next stage in her breast reconstruction process which is removal of the saline tissue expanders with replacement cohesive gel implants bilaterally. She has complained about persistent pulling in the lateral aspect right breast reconstruction. IV Fluids - 2000 ml. Urine Output - 465 ml. I used Riverview MemoryGel Breast Implant, Smooth, Round Ultra High Profile, (800 ml on the left). Reference Number - [id number]. Lot Number - [id number]. Serial Number - [id number]. Expiration - March 01, 2025. I used Riverview MemoryGel Breast Implant, Smooth, Round Ultra High Profile, (800 ml on the right). Reference Number - [id number]. Lot Number - [id number]. Serial Number - [id number]. Expiration - March 01, 2025. I used Antonella absorbable hemostat, (I used 4 vials, 2 in each breast). Reference Number - [id number]. Lot Number - [id number]. Expiration - October 10, 2024, (2 vials in right breast). Reference Number - [id number]. Lot Number - [id number]. Expiration - December 10, 2024, (left breast). Reference Number - [id number]. Lot Number - [id number]. Expiration - August 10, 2024, (left breast). timber killer: Melisa Mosley. Type of Anesthesia:: Topical Specimen's removed: None. Drains: Arnol x4 (2 in each breast). Estimated Blood Loss (mL): 150. Fluids Replaced: 2465 ml (IV Fluids 2000 ml, Urine Output 465 ml). Description of Procedure: While the patient was in the preop area, markings were made from the sternal midline to the umbilicus. The inframammary folds were marked bilaterally. She was then taken to the OR in supine position and placed under general anesthesia. SCD's were placed for DVT prophylaxis. Perioperative antibiotics were given intravenously. For the procedure, I wore an N95 mask and wore proper eyewear protection. Her breasts were prepped and draped in the usual fashion. Ioban draping was also used. A roche catheter was placed. Using xylocaine with epinephrine, the inframammary incision scars bilaterally were infiltrated. After waiting 5 minutes for the anesthetic to take effect, I first worked on the right breast and then the left breast. Prior to making an incision on the right, there was mild deflation of the left breast saline tissue veterinary surgery technologist. Therefore initial intraoperative expansion with saline was done on the left. I topped off the left breast veterinary surgery technologist with 150 ml saline. A horizontal incision was made through the previous inframammary scar on the right down through the subcutaneous tissue until the capsule was seen. A capsulotomy was performed and the smooth saline tissue veterinary surgery technologist was removed. No abnormal fluid collection was seen in the breast pocket. The previous placed acellular dermal matrix graft was incorporated into the breast pocket and no additional acellular dermal matr ix graft will be needed today. There was some tethering in the lateral aspect of the breast pocket where she was complaining of pain and pulling with activity. Incision was made in the acellular dermal matrix graft as the tethered scar tissue was freed up. Hemostasis was obtained with electrocautery. There was some lateral migration of the capsule from the saline tissue expansion. The lateral aspect of the acellular dermal matrix graft was freed up as an inferolateral sling which was migrated medially to better centralize the breast pocket and minimize lateral migration of the implant. This graft sling was sutured to the chest wall with 3-0 Vicryl figure of eight interrupted sutures. During this mobilization, a small incision was created in the lateral aspect of the areola due to the closeness of the acellular dermal matrix graft to the breast skin. It measured about 5 mm and was closed in a layered fashion with 3-0 Monocryl interrupted sutures for the deep dermis and subcutaneous tissue. The skin was approximated with 4-0 Prolene vertical mattress interrupted sutures and simple interrupted sutures. I first placed a size 750 ml Ultra High Profile sizer. It fit nicely into the breast pocket, but I felt there was still some room for a larger size. So I then placed a size 800 ml Ultra High Profile sizer. It was a better fit as it gave better superior pole fullness. The inframammary incision was temporarily closed with surgical clips. I then went to the left side. A horizontal incision was made through the previous inframammary scar on the left down through the subcutaneous tissue until the capsule was seen. A capsulotomy was performed and the smooth saline tissue veterinary surgery technologist was removed. No abnormal fluid collection was seen in the breast pocket. The previous placed acellular dermal matrix graft was incorporated into the breast pocket and no additional acellular dermal matrix graft will be needed today. There was no evidence of tethering in the lateral aspect of the breast pocket. When I removed the saline tissue veterinary surgery technologist on the left, I vigorously squeezed the veterinary surgery technologist to try and find the small leak that caused mild deflation during the expansion process. I could not find the leak in the veterinary surgery technologist. There was mild extension of the breast pocket laterally on the left so I mobilized an inferolateral sling with the previously placed acellular dermal matrix graft. It was secured to the chest wall with 3-0 Vicryl figure of eight interrupted sutures. I went ahead and placed the 800 ml Ultra High Profile size in the left breast. The inframammary incision was temporarily closed with surgical clips. Patient The patient was placed in the sitting position. Good shape and contour was noted in the breasts. Patient was then placed back in the supine position and the sizers were removed. I placed two size 15 Arnol drains through separate stab incisions inferiorly and laterally and secured to the skin with 3-0 Nylon suture. I irrigated both breast wounds with Irrisept 0.05% Chlorhexidine solution followed by saline irrigation. Hemostasis was obtained with electrocautery. I sprayed Antonella absorbable hemostat into both breast pockets to minimize seroma formation. I used two vials in each breast. Prior to handling the cohesive gel implants, our gloves were changed. I then took both cohesive gel implants (Riverview ultra high profile, 800 ml) and placed them in sterile Betadine on the back table. Using a malleable to protect the cohesive gel implants, I closed the inferior portion of the acellular dermal matrix graft slings bilaterally by advancing it more medially during closure which tightened the inferior aspect of the breast pocket using 3-0 Vicryl suture. The deep dermis and subcutaneous tissue of the breast wounds were approximated with 3-0 Monocryl interrupted sutures. The skin was approximated with 3-0 V lock unidirectional barbed running subcuticular sutures. This was followed by Histoacryl skin tissue adhesive. A Kerlix gauze dressing was applied followed by an ABD pad and a surgical bra. Patient tolerated the procedure well and was sent to PACU in satisfactory condition. She will be sent upstairs for postop care. The drains will be removed in 10-14 days. She will be discharged on antibiotics and pain medication and Valium for spasm. Grafts/Implants Used: Riverview MemoryGel Breast Implants x2, Antonella. - Complications None. - Admit VTE Documentation VTE Present on Admission: No VTE Mechan Device Prophylaxis: SCD's VTE Pharm Prophylaxis ordered?: Yes Surgery Charges CPT - 53868-00 ICD-10 - N64.4, Z90.13, Z40.01, Z15.01, N65.0, T8 5.44xA, Z98.86, Z80.3, Z87.891 [id number] N64.4, Z90.13, Z40.01, Z15.01, N65.0, T85.44xA, Z98.86, Z80.3, Z87.891
[2020-04-12] MEDS: HYDROmorphone 1 MG/ML Syringe IV ×2 (16:38→19:57)
[2020-04-12] MEDS: Ensure Surgery 237 ML LIQUID PO (16:46)
[2020-04-12] MEDS: Gabapentin 100 MG Capsule 200 MG PO (16:46)
[2020-04-12] MEDS: Cefazolin 1 GM/50 ML BAG IV (18:12)
[2020-04-12] MEDS: oxyCODONE 5 MG Tablet PO (18:14)
[2020-04-12] MEDS: 0.9% Saline Lock 10 ML Syringe IV ×2 (18:40→19:58)
[2020-04-12] MEDS: Docusate Sodium 100 MG Capsule PO (19:53)
[2020-04-13 00:27] VITALS: BP 103/66; PULSE 72; RESP 16; TEMP 36.5; O2SAT 99
[2020-04-13] MEDS: diazePAM 5 MG Tablet PO ×3 (00:37→19:38)
[2020-04-13] MEDS: Acetaminophen 500 MG Tablet 1000 MG PO ×4 (00:37→18:42)
[2020-04-13] MEDS: Cefazolin 1 GM/50 ML BAG IV ×3 (00:38→16:27)
[2020-04-13 04:20] VITALS: BP 103/65; PULSE 81; RESP 16; TEMP 36.4; O2SAT 100
[2020-04-13] MEDS: oxyCODONE 5 MG Tablet PO ×3 (04:21→19:36)
[2020-04-13] MEDS: 0.9% Saline Lock 10 ML Syringe IV ×4 (05:20→20:46)
[2020-04-13] MEDS: HYDROmorphone 1 MG/ML Syringe IV ×4 (05:21→20:46)
[2020-04-13 07:30] LABS: Hematocrit 39.3 % (37-47); Hemoglobin 12.7 g/dL (12.0-15.0); Mean Corp Hgb Conc 32.3 g/dL (32-36); Mean Corpuscular Hgb 28.6 pg (27.0-32.0); Mean Corpuscular Volume 88.5 fL (81-99); Mean Platelet Vol. 9.5 fl (6.2-12.0); Platelet Count 334 K/mm3 (150-450); RBC Distribution Width CV 12.6 % (11.6-14.6); RBC Distribution Width SD 41.4 fl (35.1-43.9); Red Blood Count 4.44 M/mm3 (4.2-5.4); White Blood Count 11.5 K/mm3 (4.4-11.0)
[2020-04-13 07:58] LABS: Anion Gap 4 (5-15); BUN 8 mg/dL (7-18); Calcium,Total 8.1 mg/dL (8.5-10.1); Chloride 109 mmol/L (98-107); Creatinine, Serum 0.62 mg/dL (0.55-1.02); EST Glomerular Filtration Rate 117 mL/min (>60); Est Glom Filt Rate - Afr Amer 141 mL/min (>60); Estimated Creatinine Clearance 127.76 ml/min; Glucose 100 mg/dL (74-106); Potassium 3.9 mmol/L (3.5-5.1); Prealbumin 19.4 mg/dL (20.0-40.0); Sodium Level 140 mmol/L (136-145)
[2020-04-13] MEDS: Gabapentin 100 MG Capsule 200 MG PO ×3 (08:24→16:27)
[2020-04-13] MEDS: Docusate Sodium 100 MG Capsule PO ×2 (08:24→20:45)
[2020-04-13] MEDS: Enoxaparin 40 MG/0.4 ML Syringe SC (08:24)
[2020-04-13] MEDS: Ensure Surgery 237 ML LIQUID PO ×3 (08:25→16:27)
[2020-04-13 08:28] VITALS: BP 106/64; PULSE 76; RESP 18; TEMP 37; O2SAT 97
[2020-04-13] MEDS: Lactated Ringers 1,000 ML 60 ML IV (09:36)
--- NOTE | 2020-04-13 13:41 | PN.SURG_ITS ---
Subjective: Post op day #1. Patient sitting up in bed. She is complaining of right axilla pain. - Physical Exam Vitals/I&O's: Vital Signs Temp Pulse Resp BP Pulse Ox 98.0 F 85 16 109/61 94 04/13/20 13:55 04/13/20 13:55 04/13/20 13:55 04/13/20 13:55 04/13/20 13:55 Oxygen Flow Rate (L/min) 6 Oxygen Delivery Method Room Air Weight: 235 lb 0.204 oz Body Mass Index (BMI) 35.6 Intake and Output for Last 24 Hours 04/11/20 04/12/20 04/13/20 23:59 23:59 23:59 Intake Total 4035.5 / 4995.5 2728 / 2728 Output Total 1450 / 3265 3602 / 3602 Balance 2585.5 / 1730.5 -874 / -874 General: Alert, Oriented x3, Cooperative HEENT: Atraumatic Oral: Moist Mucosa Lungs: Normal air movement Cardiovascular: Regular rate Skin: Incision - Bilateral breast incisions are dry and intact. Sutures are dry and intact. Arnol drains are draining serosanguineous fluid. Breasts have good contour. ROBYN wrap applied for compression. Musculoskeletal: Tenderness - Right axilla is tender with and without movement. Neurological: Cranial nerves II-XII grossly intact Psych/Mental Status: Normal Affect, Appropriate Microbiology Past 72 Hours 04/11/20 12:09 Interface Orders SARS-CoV-2 Antigen (Rapid) - Final Laboratory Results 04/13/20 06:24: Sodium 140, Potassium 3.9, Chloride 109 H, Carbon Dioxide 27.0, Anion Gap 4 L, BUN 8, Creatinine 0.62, Estim Creat Clear Calc 127.76, Est GFR (MDRD) Af Amer 141, Est GFR (MDRD) Non-Af 117, BUN/Creatinine Ratio 13.0, Glucose 100, Calcium 8.1 L, Prealbumin 19.4 L 04/13/20 06:24: WBC 11.5 H, RBC 4.44, Hgb 12.7, Hct 39.3, MCV 88.5, MCH 28.6, MCHC 32.3, RDW Std Deviation 41.4, RDW Coeff of Tae 12.6, Plt Count 334, MPV 9.5 Current Medications Acetaminophen (Acetaminophen 500 Mg Tablet) 1,000 mg PO Q6 [facility] Last Admin: 04/13/20 11:36 Dose: 1,000 mg Documented by: Diazepam (Diazepam 5 Mg Tablet) 5 mg PO 4X/DAY PRN PRN PRN Reason: SPASMS Last Admin: 04/13/20 11:33 Dose: 5 mg Documented by: Docusate Sodium (Docusate Sodium 100 Mg Capsule) 100 mg PO BID [facility] Last Admin: 04/13/20 08:24 Dose: 100 mg Documented by: Enoxaparin Sodium (Enoxaparin 40 Mg/0.4 Ml Syringe) 40 mg SC DAILY [facility] Last Admin: 04/13/20 08:24 Dose: 40 mg Documented by: Enteral Nutritional Formula (Ensure Surgery 237 Ml Liquid) 237 ml PO TIDCM [facility] Last Admin: 04/13/20 16:27 Dose: 237 ml Documented by: Gabapentin (Gabapentin 100 Mg Capsule) 200 mg PO TIDCM [facility] Last Admin: 04/13/20 16:27 Dose: 200 mg Documented by: Hydromorphone HCl (Hydromorphone 1 Mg/Ml Syringe) 0.5 - 1 mg IV Q3H PRN PRN PRN Reason: Pain Score 6-10 Last Admin: 04/13/20 14:11 Dose: 1 mg Documented by: Cefazolin Sodium () 1 gm in 50 mls @ 100 mls/hr IV Q8H [facility] Last Admin: 04/13/20 16:27 Dose: 100 mls/hr Documented by: Lactated Ringer's () 1,000 mls @ 60 mls/hr IV .[id number] [facility] Last Infusion: 04/13/20 09:48 Dose: 0 mls/hr Documented by: Magnesium Chloride (Magnesium Chloride 64 Mg Delay Rel.Tablet) 128 mg PO DAILY PRN PRN PRN Reason: Constipation Ondansetron HCl (Ondansetron Odt 4 Mg Tablet) 4 mg PO Q6H PRN PRN PRN Reason: NAUSEA Oxycodone HCl (Oxycodone 5 Mg Tablet) 5 - 10 mg PO Q4H PRN PRN PRN Reason: Pain Score 4-10 Last Admin: 04/13/20 11:33 Dose: 10 mg Documented by: Sodium Chloride (0.9% Saline Lock 10 Ml Syringe) 10 - 40 ml IV UD PRN PRN Reason: SALINE FLUSH Last Admin: 04/13/20 14:11 Dose: 10 ml Documented by: Medical Necessity - Tobacco Use Smoking Status: Never smoker Tobacco Use: Non-smoker Assessment/Plan All Active Problems (Last Reviewed 04/01/20 @ 20:[address] Ceferino Landa MD) Palpitations (Acute) False labor before 37 completed weeks of gestation (Resolved) Acute cystitis (Resolved) 1. Painful areolar scarring bilateral breast reconstruction, improved since the last surgery. 2. Acquired absence bilateral breasts and nipples. 3. Prophylactic bilateral breast removal (areolar sparing). 4. 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 5. Deformity reconstructed breasts. 6. Painful pectoralis muscle animation deformity, improved after placement of prepectoral saline tissue expanders. 7. Capsular contracture bilateral breast reconstruction, improved after capsulectomies. 8. History of placement of bilateral saline tissue expanders reconstruction. 9. Family history of breast cancer. 10. Former smoker. Patient continues to have pain, especially in her right axilla area. She has been requiring IV pain meds to help with pain control. Incisions are dry and intact. Encouraged compression. ROBYN wrap applied. Arnol drains are draining serosanguineous fluid. Will consider pulling them in 1-2 weeks. The antibiotic she is on is Cefazolin. Prealbumin is 19.4. Encourage increase protein intake and supplementation to help with wound healing. Will keep her another night for pain control since she is requiring IV pain meds to help with pain control. Plan will be to discharge her tomorrow.
[2020-04-13 13:55] VITALS: BP 109/61; PULSE 85; RESP 16; TEMP 36.7; O2SAT 94
[2020-04-13 20:44] VITALS: BP 114/64; PULSE 88; RESP 16; TEMP 36.6; O2SAT 98
[2020-04-14] MEDS: oxyCODONE 5 MG Tablet PO ×2 (00:21→06:14)
[2020-04-14 00:25] VITALS: BP 111/48; PULSE 83; RESP 16; TEMP 36.5; O2SAT 98
[2020-04-14] MEDS: Cefazolin 1 GM/50 ML BAG IV ×2 (00:27→08:34)
[2020-04-14] MEDS: Lactated Ringers 1,000 ML 60 ML IV (00:27)
[2020-04-14] MEDS: Acetaminophen 500 MG Tablet 1000 MG PO ×3 (00:38→12:04)
[2020-04-14] MEDS: 0.9% Saline Lock 10 ML Syringe IV ×3 (01:01→15:41)
[2020-04-14] MEDS: HYDROmorphone 1 MG/ML Syringe IV ×3 (01:01→15:42)
[2020-04-14 06:20] VITALS: BP 108/61; PULSE 80; RESP 16; TEMP 36.6; O2SAT 99
[2020-04-14 08:23] VITALS: PULSE 90
[2020-04-14] MEDS: Gabapentin 100 MG Capsule 200 MG PO ×2 (08:34→12:04)
[2020-04-14] MEDS: Ensure Surgery 237 ML LIQUID PO ×2 (08:34→12:03)
[2020-04-14] MEDS: Docusate Sodium 100 MG Capsule PO (08:34)
[2020-04-14] MEDS: Enoxaparin 40 MG/0.4 ML Syringe SC (08:35)
--- NOTE | 2020-04-14 11:05 | PCM.PN.SRG ---
Subjective: post op day #2 Continues to have right axilla pain - Physical Exam Vitals/I&O's: Vital Signs Temp Pulse Resp BP Pulse Ox 98.2 F 89 16 116/67 97 04/14/20 12:01 04/14/20 12:01 04/14/20 12:01 04/14/20 12:01 04/14/20 12:01 Oxygen Flow Rate (L/min) 6 Oxygen Delivery Method Room Air Weight: 235 lb 0.204 oz Body Mass Index (BMI) 35.6 Intake and Output for Last 24 Hours 04/12/20 04/13/20 04/14/20 23:59 23:59 23:59 Intake Total 4035.5 / 4995.5 2778 / 3178 1197 / 1197 Output Total 1450 / 3265 3642 / 3642 62 / 62 Balance 2585.5 / 1730.5 -864 / -464 1135 / 1135 General: Alert, Oriented x3, Cooperative HEENT: Atraumatic Oral: Moist Mucosa Lungs: Normal air movement Cardiovascular: Regular rate Abdomen: Soft, Non Tender Extremities: Capillary Refill Less than 3 Seconds Skin: Incision - Bilateral breast incisions are dry and intact. Sutures intact. Bilateral Arnol drains intact and draining serosanguineous drainage. Compression ROBYN wrap in place. Neurological: Cranial nerves II-XII grossly intact Psych/Mental Status: Normal Affect, Appropriate Microbiology Past 72 Hours 04/11/20 12:09 Interface Orders SARS-CoV-2 Antigen (Rapid) - Final Current Medications Acetaminophen (Acetaminophen 500 Mg Tablet) 1,000 mg PO Q6 [facility] Last Admin: 04/14/20 12:04 Dose: 1,000 mg Documented by: Diazepam (Diazepam 5 Mg Tablet) 5 mg PO 4X/DAY PRN PRN PRN Reason: SPASMS Last Admin: 04/14/20 12:04 Dose: 5 mg Documented by: Docusate Sodium (Docusate Sodium 100 Mg Capsule) 100 mg PO BID [facility] Last Admin: 04/14/20 08:34 Dose: 100 mg Documented by: Enoxaparin Sodium (Enoxaparin 40 Mg/0.4 Ml Syringe) 40 mg SC DAILY [facility] Last Admin: 04/14/20 08:35 Dose: 40 mg Documented by: Enteral Nutritional Formula (Ensure Surgery 237 Ml Liquid) 237 ml PO TIDCM [facility] Last Admin: 04/14/20 12:03 Dose: 237 ml Documented by: Gabapentin (Gabapentin 100 Mg Capsule) 200 mg PO TIDCM [facility] Last Admin: 04/14/20 12:04 Dose: 200 mg Documented by: Hydromorphone HCl (Hydromorphone 1 Mg/Ml Syringe) 0.5 - 1 mg IV Q3H PRN PRN PRN Reason: Pain Score 6-10 Last Admin: 04/14/20 08:33 Dose: 1 mg Documented by: Cefazolin Sodium () 1 gm in 50 mls @ 100 mls/hr IV Q8H [facility] Last Infusion: 04/14/20 09:10 Dose: Infused Documented by: Lactated Ringer's () 1,000 mls @ 60 mls/hr IV .[id number] [facility] Last Admin: 04/14/20 00:27 Dose: 60 mls/hr Documented by: Magnesium Chloride (Magnesium Chloride 64 Mg Delay Rel.Tablet) 128 mg PO DAILY PRN PRN PRN Reason: Constipation Ondansetron HCl (Ondansetron Odt 4 Mg Tablet) 4 mg PO Q6H PRN PRN PRN Reason: NAUSEA Oxycodone HCl (Oxycodone 5 Mg Tablet) 5 - 10 mg PO Q4H PRN PRN PRN Reason: Pain Score 4-10 Last Admin: 04/14/20 06:14 Dose: 10 mg Documented by: Sodium Chloride (0.9% Saline Lock 10 Ml Syringe) 10 - 40 ml IV UD PRN PRN Reason: SALINE FLUSH Last Admin: 04/14/20 08:34 Dose: 10 ml Documented by: Medical Necessity - Tobacco Use Smoking Status: Never smoker Tobacco Use: Non-smoker Assessment/Plan All Active Problems (Last Reviewed 04/01/20 @ 20:[address] Ceferino Landa MD) Palpitations (Acute) False labor before 37 completed weeks of gestation (Resolved) Acute cystitis (Resolved) 1. Painful areolar scarring bilateral breast reconstruction, improved since the last surgery. 2. Acquired absence bilateral breasts and nipples. 3. Prophylactic bilateral breast removal (areolar sparing). 4. 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 5. Deformity reconstructed breasts. 6. Painful pectoralis muscle animation deformity, improved after placement of prepectoral saline tissue expanders. 7. Capsular contracture bilateral breast reconstruction, improved after capsulectomies. 8. History of placement of bilateral saline tissue expanders reconstruction. 9. Family history of breast cancer. 10. Former smoker. Patient continues to have pain, especially in her right axilla area. She has been requiring IV pain meds to help with pain control. Her last dose of hydromorphone was at 0830 this morning. Incisions are dry and intact. Encouraged compression. ROBYN wrap for compression. Arnol drains are draining serosanguineous fluid. Will consider pulling them in 1-2 weeks. The antibiotic she is on is Cefazolin. Prealbumin is 19.4. Encourage increase protein intake and supplementation to help with wound healing. The plan is to discharge her later today. She will follow up next week in the office.
[2020-04-14 12:01] VITALS: BP 116/67; PULSE 89; RESP 16; TEMP 36.8; O2SAT 97
[2020-04-14] MEDS: diazePAM 5 MG Tablet PO (12:04)
--- NOTE | 2020-04-14 15:07 | PCM.DC ---
You will use the following diet at home:: No restrictions, Other - encourage nutritional supplementation with protein to help the healing process. Discharge Activity: May not drive while taking narcotic pain medications., May Not Shower - until the drains are removed., - - keep head elevated. no heavy lifting. May shower in (days): 14 - after the drains are removed. May resume sexual activity in: 10-14 days Weight Bearing Status: Weight bearing as tolerated Lifting Restrictions: 20 lbs. Keep extremity elevated above heart level: - - elevate head. Call your doctor if your incision/area has: Continuous Slow Oozing, Sudden Increased Bleeding, Increased Pain/ Swelling, Increased Redness, Foul Smelling Discharge, Swelling at the incision site Call your doctor if you observe: Fever of 101 or Higher, Coldness, Increased Pain, Shortness of breath, Chest pain, Calf discomfort, Uncontrolled pain Suture Line Care: - - dry dressings daily. Change Dressing in (Days):: 1 - dry dressings daily. Cleanse incision/area with: - - may get the incisions wet in the shower after the drains are removed. Drain: Suction - ashley drain x4 to bulb suction. empty and record output daily. Allergies/Adverse Reactions: Allergies vancomycin Allergy (Intermediate, Verified 04/12/20 05:39) Hives Medications to take at Discharge Cefadroxil [Duricef] 500 mg PO BID #28 cap 04/14/20 Diazepam [Valium] 5 mg PO 4X/DAY PRN PRN #30 tab 04/14/20 Gabapentin [Neurontin] 200 mg PO TIDCM #180 cap 04/14/20 HYDROmorphone tablet [Dilaudid] 2 mg PO Q4H PRN PRN 7 Days #40 tablet 04/14/20 The following prescriptions were given: HYDROmorphone tablet [Dilaudid] 2 mg PO Q4H PRN PRN 7 Days #40 tablet PRN Reason: Pain Score 6-10 Transmission Status: Sent to [facility] Cefadroxil [Duricef] 500 mg PO BID #28 cap Transmission Status: Pending to [facility] Gabapentin [Neurontin] 200 mg PO TIDCM #180 cap Transmission Status: Pending to [facility] Diazepam [Valium] 5 mg PO 4X/DAY PRN PRN #30 tab PRN Reason: Spasms Transmission Status: Sent to [facility] Primary Care Physician: Care Physician,No Primary [Primary Care Provider] - Test Results: Test results from this visit will be discussed in further detail at your follow-up appointment, if applicable. Please Follow Up With: Ceferino Landa MD When: one week. call [phone] for appt. Proposed Discharge Date: 04/14/20
[2020-04-14 15:36] VITALS: BP 107/66; PULSE 88; RESP 18; TEMP 37.2; O2SAT 95
== END 2020-04-14 16:12 | disposition home or self-care (01) ==
LOC: SDC 16:05 → MS3 16:05
PROVIDERS: Anesthesiology; Admitting Provider Surgery; Referring Provider Surgery; Visit Provider Surgery
PROC: (CPT 19357; principal; 2020-04-12 07:15)
DX: N65.0 Deformity of reconstructed breast (principal); L90.5 Scar conditions and fibrosis of skin; T85.44XA Capsular contracture of breast implant, initial encounter; Y83.8 Other surgical procedures as the cause of abnormal reaction of the patient, or of later complication, without mention of misadventure at the time of the procedure; N64.4 Mastodynia; Z20.828 Contact with and (suspected) exposure to other viral communicable diseases; Z90.13 Acquired absence of bilateral breasts and nipples; Z15.01 Genetic susceptibility to malignant neoplasm of breast; Z80.3 Family history of malignant neoplasm of breast; Z87.891 Personal history of nicotine dependence
CPT/HCPCS: 11970; 36415; 80048; 81025; 82962; 83735; 84134; 85027; 87426; 96365; 96366; 96372; 96375; 96376; 99218; 99251; C9803; J7120; A4216; G0378; G0379; G0463; J2405; Q9968

== ENCOUNTER 2020-04-22 11:26 | Inpatient (IN) | payer OTHER, SELFPAY ==
[2020-04-22] VITALS (8 sets, daily range): BP systolic 108–123; BP diastolic 60–80; PULSE 107–126; RESP 16–20; TEMP 36.9–38.8; O2SAT 98–99; BMI 35.7; BMI 35.2
--- NOTE | 2020-04-22 11:45 | ED.DCSUM_ITS ---
History of Present Illness Chief Complaint: Fever Informant: Patient Onset: Today Current Severity: Moderate Maximum Severity: Moderate Narrative: Patient present secondary to fever and body aches. Patient has history of prior mastectomy in 2009 secondary to caring the BRCA2 breast cancer gene. She had recent breast reconstruction with Dr. Landa on April 12. Patient was seen in the office 2 days ago and had 2 of her 4 drains removed. She was seen in the office today for follow-up and advised her [place] that at 3 AM this morning she woke up with fever up to 102 and body aches. She continues to have some mild dysuria which she attributes to having the Iqbal catheter in for her surgery. No cough or congestion. - Past Medical History (1) BRCA2 gene mutation positive in female Status: Chronic Past Medical History - Allergies and Home Meds Allergies/Adverse Reactions: Allergies vancomycin Allergy (Intermediate, Verified 04/22/20 11:27) Hives Primary Care Physician: Care Physician,No Primary [Primary Care Provider] - Surgical History: mastectomy, - - Breast reconstruction Lives: With Family Smoking Status: Former smoker Review of Systems General: Reports: Fever Eyes: Denies: Visual changes - bilaterally ENT: Denies: Bilateral ear pain Cardiovascular: Denies: Chest pain Respiratory: Denies: Dyspnea, Cough Gastrointestinal: Denies: Abdominal pain, Vomiting, Diarrhea Genitourinary: Reports: Dysuria Musculoskeletal: Reports: Myalgias, Back pain Skin: Denies: Rash Hematologic: Denies: Easy bruising, Easy bleeding Allergy: Denies: Uticaria Physical Exam Vital Signs/Narrative: Vital Signs Temp Pulse Resp BP Pulse Ox 04/22/20 11:27 98.4 F 120 H 18 116/75 99 Inital Vital Signs reviewed: Yes General: Well nourished, Well developed Head: Normocephalic ENT: Moist mucous membranes Neck: Supple Cardiovascular: Tachycardia Respiratory: No distress, CTA bilaterally Abdomen: Soft, Nontender Extremities: Nontender Neurological: Alert, Oriented x3 Psychological: Normal affect Diagnostic/Tx/Re-eval 04/22/20 12:35 Chest 1 View (Portable) [RAD] Stat The lungs are clear. No focal infiltrate is seen. 04/22/20 11:59 Mucosa - Nose SARS-CoV-2 Antigen (Rapid) - Final Laboratory Results 04/22/20 04/22/20 12:50 14:25 Sodium 137 Potassium 4.2 Chloride 106 Carbon Dioxide 23.0 Anion Gap 8 BUN 8 Creatinine 0.80 Estim Creat Clear Calc 99.01 Est GFR (MDRD) Af Amer 104 Est GFR (MDRD) Non-Af 86 BUN/Creatinine Ratio 10.0 Glucose 94 Calcium 8.9 Total Bilirubin 0.50 Direct Bilirubin 0.12 AST 11 L ALT 33 Alkaline Phosphatase 81 Total Protein 6.9 Albumin 3.7 Globulin 3.2 Urine Color Yellow Urine Clarity Clear Urine pH 7.0 Ur Specific [place] 1.010 Urine Protein Negative Urine Glucose (UA) Normal Urine Ketones Negative Urine Occult Blood Negative Urine Nitrite Negative Urine Bilirubin Negative Urine Urobilinogen Normal Ur Leukocyte Esterase 25 H Urine RBC 0 SEEN Urine WBC 0-5 SEEN Ur Squamous Epith Cells 0-5 SEEN Urine Bacteria 1+ Urine Mucus 0 SEEN - Medical Decision Making Patient was given Toradol and Zofran. She is a very difficult stick for blood. IV was able to be established and lab came multiple times an attempt to get blood. They were able to get chemistry studies and LFTs, but no other blood work. Chemistries are normal. Urinalysis reveals no significant infection and no ketones. Rapid Covid test did return negative, however I did caution the patient that my suspicion is that she does have Covid however her viral count was not high enough to read positive on the test. Patient states that she would feel better admitted to the hospital then at home. Patient will be admitted to Dr. Landa's service. He did see the patient here in the emergency room. ED Disposition - Plan for ED Patient: Disposition: [facility] Care Hospital [facility] Diagnosis: Postoperative fever, Viral syndrome Referrals: Care Physician,No Primary [Primary Care Provider] -
[2020-04-22] MEDS: Ketorolac 30 MG/ML Syringe IV (12:27)
--- NOTE | 2020-04-22 12:35 | RAD_ITS ---
STUDY: X-RAY CHEST REASON FOR EXAM: Female, 34 years old. COUGH, FEVER, NAUSEA AND VOMITTING. PATIENT STATES HAD DANN BREAST RECONSTRUCTION REVISION RECENTLY. FIRST DANN MASTECTOMY BACK IN 2009. TECHNIQUE: Single AP portable view of the chest. COMPARISON: None. FINDINGS: EKG electrodes are seen. Surgical drainage tubes are seen from recent bilateral breast reconstruction surgeries. The lungs are clear and expanded. There is no demonstrated pleural abnormality. Normal size heart. Normal mediastinum and yandy. Normal visualized pulmonary arteries. Normal visualized aortic arch and descending thoracic aorta. Normal visualized thoracic spine. Normal visualized ribs, clavicles, and shoulders. There is no demonstrated abnormality of the visualized soft tissue structures of the upper abdomen. RAD/Chest 1 View (Portable) IMPRESSION: The lungs are clear. No focal infiltrate is seen. Electronically Signed: Donta Graham, at 13:02 EST , Service support ,
[2020-04-22] MEDS: 0.9% Normal Saline 1,000 ML 999 ML IV (13:10)
[2020-04-22 13:41] LABS: AST(SGOT) 11 U/L (15-37); Alanine Aminotransfer ALT/SGPT 33 U/L (13-56); Albumin, Serum 3.7 g/dL (3.2-5.0); Alkaline Phosphatase 81 U/L (45-117); Anion Gap 8 (5-15); BUN 8 mg/dL (7-18); Bilirubin, Direct 0.12 mg/dL (0.00-0.30); Calcium,Total 8.9 mg/dL (8.5-10.1); Chloride 106 mmol/L (98-107); EST Glomerular Filtration Rate 86 mL/min (>60); Est Glom Filt Rate - Afr Amer 104 mL/min (>60); Estimated Creatinine Clearance 99.01 ml/min; Globulin 3.2 g/dL (2.2-4.2); Glucose 94 mg/dL (74-106); Potassium 4.2 mmol/L (3.5-5.1); Protein, Total 6.9 g/dL (6.4-8.2); Sodium Level 137 mmol/L (136-145)
[2020-04-22 14:30] LABS: Mucous, Urine 0 SEEN /hpf (<or=2+); Red Blood Cells-Urine 0 SEEN /hpf (0-5)
[2020-04-22 14:39] LABS: Color, Urine Yellow (Yellow); Glucose, Dipstick Normal (Normal); Ketone-Dipstick Negative (Negative); Leukocyte Esterase-Dipstick 25 /ul (Negative); Nitrite-Dipstick Negative (Negative); Occult Blood-Urine Negative /ul (Negative); Protein-Dipstick Negative (Negative); Urine Bilirubin Dipstick Negative (Negative); Urine Clarity Clear (Clear); Urine Urobilinogen Normal (Normal)
[2020-04-22] MEDS: Morphine 4 MG/ML Syringe IV (14:44)
[2020-04-22] MEDS: Ondansetron 4 MG/2 ML Vial IV ×2 (14:44→18:35)
[2020-04-22 14:58] LABS: Bacteria 1+ /hpf (None Seen); Squamous Epithelial Cells - UA 0-5 SEEN /hpf (5-10); White Blood Cells 0-5 SEEN /hpf (0-5)
[2020-04-22] MEDS: Morphine 2 MG/ML Syringe IV (15:36)
[2020-04-22 16:34] LABS: Absolute Lymphocyte Count 2.26 X10^3/uL (0.83-4.51); Absolute Neutrophil Count 11.7 X10^3/uL (2.0-7.7); Basophil# 0.05 X10^3/uL; Basophil% 0.3 % (0-1); Eosinophil# 0.18 X10^3/uL; Eosinophils% 1.2 % (0-5); Hematocrit 37.4 % (37-47); Hemoglobin 12.5 g/dL (12.0-15.0); Lymphocyte # 2.26 X10^3/ul (4.0); Lymphocyte % 14.7 % (19-41); Mean Corp Hgb Conc 33.4 g/dL (32-36); Mean Corpuscular Hgb 28.9 pg (27.0-32.0); Mean Corpuscular Volume 86.4 fL (81-99); Mean Platelet Vol. 8.9 fl (6.2-12.0); Monocyte# 1.16 X10^3/uL; Monocyte% 7.5 % (0-10); NRBC Flagged by Analyzer 0 % (0-5); Neutrophil # 11.67 X10^3/uL (2.7-7.7); Neutrophil % 75.9 % (47-70); Platelet Count 326 K/mm3 (150-450); RBC Distribution Width CV 12.8 % (11.6-14.6); RBC Distribution Width SD 39.8 fl (35.1-43.9); Red Blood Count 4.33 M/mm3 (4.2-5.4); White Blood Count 15.4 K/mm3 (4.4-11.0)
[2020-04-22 17:06] LABS: Lactic Acid 0.6 mmol/L (0.4-1.9)
--- NOTE | 2020-04-22 17:06 | ED.RN ---
PT DIFFICULT IV START, CBCD, LACTIC AND BLOOD CULTURES DRAWN BY RT IN ARTERIAL DRAW.
--- NOTE | 2020-04-22 18:01 | PCM.HP.BLA ---
History and Physical Date of Admission: 04/22/20 History and Physical Date of Admission: 04/12/20 HISTORY OF PRESENT ILLNESS Patient is a 34 year old female who initially presented for evaluation for breast reconstruction. She has a family history of breast cancer. Because of that, she underwent genetic testing in 2008. 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 With an increased risk of developing breast cancer, she underwent bilateral prophylactic mastectomy (areolar sparing) and placement of submuscular saline tissue expanders. This was followed by removal of the expanders with replacement implants. She states she developed issues with the breast reconstruction and underwent revision of her reconstructed breasts in 2011 with another saline tissue vehicle monitor technician. This was followed by removal of the expanders with replacement implants. She thinks they were cohesive gel implants. Also later on in 2011, she underwent bilateral nipple reconstruction which developed healing issues that required wound care and antibiotics until healed. She has persistent pain in her areolar areas from the scarring and a pectoralis muscle animation deformity when she uses her arms or exercises. She had an MRI done on 06/08/19. It showed right breast tissue is normal with a normal right breast implant in place. No abnormal masses or lesions are identified within the breast. There is an enhancing right axillary lymph node measuring about 2.14 cm x 0.6 cm in size probably representing a reactive lymph node. The left breast tissue is normal with a normal left breast implant in place. No abnormal masses or lesions are identified within the left breast. There are no abnormal enhancing masses or areas of non-mass enhancement in the left breast. There are no enlarged or abnormal lymph nodes. There is no abnormality in the visualized regions of the chest or liver. She went to surgery on 01/19/20 where she underwent revision bilateral breast reconstruction with removal of bilateral cohesive gel implants and bilateral capsulectomy and revision bilateral pectoralis muscle animation deformity with placement bilateral prepectoral tissue expanders (700 ml filled to 400 ml) and placement bilateral MTF FlexHD acellular dermal matrix grafts (21 x 24 cm on the left, and 23 x 26 cm on the right). Healing has been uneventful and she presents today for the next stage in her breast reconstruction process which is removal of the saline tissue expanders with replacement cohesive gel implants bilaterally. She has complained about persistent pulling in the lateral aspect right breast reconstruction. 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 BRCA2 gene mutation positive in female Palpitations False labor before 37 completed weeks of gestation Acute cystitis PAST SURGICAL HISTORY bilateral breast implants delivery bilateral mastectomy open reduction and internal fixation (ORIF) procedure salpingectomy tonsillectomy Revision bilateral breast reconstruction with removal of bilateral cohesive gel implants and bilateral capsulectomy and revision bilateral pectoralis muscle animation deformity with placement bilateral prepectoral tissue expanders (700 ml filled to 400 ml) and placement bilateral MTF FlexHD acellular dermal matrix grafts (21 x 24 cm on the left, and 23 x 26 cm on the right) - 01/19/20 ALLERGIES vancomycin MEDICATIONS None. FAMILY HISTORY Grandmother - Cancer, breast and uterine Aunt - Cancer, multiple aunts with breast cancer SOCIAL HISTORY Smoking Status: Former smoker how long ago did patient quit smokin alcohol intake: current substance use type: does not use REVIEW OF SYSTEMS General - Denies fever, fatigue, and weight loss. Eyes - Denies cataracts and glaucoma. ENT - Denies nasal congestion and sore throat. Endocrine - Denies excessive thirst and urination. Skin - Denies suspicious lesions and skin cancer. Breast - Bilateral mastectomy with reconstruction 2009. Reconstruction revised 2011. Has bilateral areolar pain and pectoralis muscle animation deformity. Musculoskeletal - Denies joint pain, joint stiffness, weakness of muscles and joints, back pain, and arthritis. ORIF left clavicle 2003. Neuro - Denies headaches. Cardiovascular - Denies chest pain, fatigue, and shortness of breath with exertion. Psych - Denies anxiety and depression. Respiratory - Denies chronic cough and shortness of breath. Gastrointestinal - Denies nausea, vomiting, diarrhea, and constipation. Hematologic - Denies abnormal bruising and bleeding. Genitourinary - Denies hematuria and urinary frequency. Right salpingectomy 2013. section 2019. PHYSICAL EXAMINATION General - Alert and oriented. Bra size is 36 A-B. HEENT - PERRL. EOMI. Throat is clear. Neck - Supple and non-tender. No cervical adenopathy. Breasts - Bilateral breast incisions are healed. Has palpable expanders bilaterally. No breast masses palpable. Mild tenderness at areolar scar bilaterally. No visible pectoralis muscle animation deformity bilaterally. Patient still feels pulling on the chest wall laterally on the right. No axillary adenopathy. Breast width is 14 cm bilaterally. Some discomfort areolar areas, improved since the last surgery. Lungs- Clear to auscultation. Heart - Regular rate and rhythm. Abdomen - Soft and non distended. There is a horizontal scar in pubic area. There is redundant skin and subcutaneous tissue between the umbilicus and the pubic area. Extremities - FROM. No axillary adenopathy. Radial pulses are palpable. Neuro - CN II-XII grossly intact. Psych - Normal mood and affect. ASSESSMENT 1. Painful areolar scarring bilateral breast reconstruction, improved since the last surgery. 2. Acquired absence bilateral breasts and nipples. 3. Prophylactic bilateral breast removal (areolar sparing). 4. 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 5. Deformity reconstructed breasts. 6. Painful pectoralis muscle animation deformity, improved after placement of prepectoral saline tissue expanders. 7. Capsular contracture bilateral breast reconstruction, improved after capsulectomies. 8. History of placement of bilateral saline tissue expanders reconstruction. 9. Family history of breast cancer. 10. Former smoker. PLAN She had revision breast reconstruction on 01/19/20 where she underwent revision bilateral breast reconstruction with removal of bilateral cohesive gel implants and bilateral capsulectomy and revision bilateral pectoralis muscle animation deformity with placement bilateral prepectoral tissue expanders (700 ml filled to 400 ml) and placement bilateral MTF FlexHD acellular dermal matrix grafts (21 x 24 cm on the left, and 23 x 26 cm on the right). She healed uneventfully. She still has some pulling on the lateral aspect right breast. Will explore that area at the next surgery to see if additional scar tissue needs to be released. She presents today for the next stage in her breast reconstruction process which is removal of saline tissue expanders with replacement cohesive gel implants bilaterally. Will see if additional acellular dermal matrix graft needs to be placed as well for additional soft tissue coverage since the implants will be in the prepectoral position. Surgery will be done under general anesthesia with a surgical observation overnight stay in the hospital. She will have drains in for several days and be maintained on antibiotics until the drains are removed. Any tissue that is removed at the time of surgery will be sent to Pathology for analysis to rule out carcinoma. Patient was informed of the risks and complications of the procedure including alternatives to surgery. These were discussed with the patient personally. Patient voices understanding and wishes to proceed. Some of the risks and complications were included in a form from the [employer]. After healing has occurred, can then address the areolar scarring if there remains persistent discomfort. Hopefully with the capsulectomy, the painful areolar scarring will improve. If not, can consider removing the areola with a completion mastectomy. Later on can proceed with nipple reconstruction with intradermal tattooing. The other option for breast reconstruction is using autogenous tissue. A bilateral TRAM flap was discussed. She is interested but not right now since she is thinking of having another baby. If she does decide on a TRAM flap in the future, there is the pedicled flap versus a microvascular free tissue transfer flap. The microvascular free tissue transfer flap has the benefit of decreased risk for a hernia. It does require the use of a microscope and would be done at a tertiary center. The pedicled flap can be done here in [place]. We discussed the current risks associated with COVID-19. While it is understood that there is a community spread of COVID-19, the risk of radha COVID-19 while at [facility] ([facility]) is very low; however, the risk cannot be completely mitigated because of the community spread of the disease. We discussed in detail the risk of exposure to and/or potential harm posed by the COVID-19 virus with having a surgery/procedure at this time versus the risk of delaying the surgery/procedure. It is not possible to know either the risk of delaying the surgery or procedure or chance of getting an infection with perfect accuracy, but a joint decision was made to proceed at this time with the scheduled surgery/procedure as indicated on the consent form. Patient was notified that we will need to comply with any screening or testing [facility] wishes to perform or that surgery may be delayed for any positive results. Discussed with the patient that I was tested for COVID-19 on 10/15/19 which was negative and on 10/29/19 which was negative and on 11/12/19 which was negative and on 11/26/19 which was negative and on 12/10/19 which was negative and on 12/31/19 which was negative and on 01/21/20 which was negative and on 02/25/20 which was negative and on 03/17/20 which was negative and on 04/05/20 which was negative. My testing regimen at this time is to be COVID-19 tested every 2 weeks or so. Procedure Criteria Procedure Type: Elective COVID Risk Discussion: The surgeon/proceduralist and patient have discussed in detail the risk of exposure to and/or potential harm posed by the COVID-19 virus with having a surgery/procedure at this time versus the risk of delaying the surgery/procedure. It is not possible to know either the risk of delaying the surgery or procedure or chance of getting an infection with perfect accuracy, but a joint decision was made between the patient and the surgeon/proceduralist to proceed at this time with the scheduled surgery/procedure as indicated on the consent form.
[2020-04-22] MEDS: oxyCODONE 5 MG Tablet 10 MG PO (18:28)
[2020-04-22] MEDS: diazePAM 5 MG Tablet PO (18:29)
[2020-04-22] MEDS: Lactated Ringers 1,000 ML 60 ML IV (18:29)
[2020-04-22] MEDS: Acetaminophen 500 MG Tablet 1000 MG PO (18:29)
[2020-04-22] MEDS: Docusate Sodium 100 MG Capsule PO (20:05)
[2020-04-23] VITALS: BP 124/69; PULSE 128; RESP 18; TEMP 36.9; O2SAT 98
[2020-04-23] MEDS: diazePAM 5 MG Tablet PO ×2 (00:07→18:19)
[2020-04-23] MEDS: oxyCODONE 5 MG Tablet 10 MG PO ×4 (00:07→18:19)
[2020-04-23] MEDS: Enoxaparin 40 MG/0.4 ML Syringe SC (05:38)
[2020-04-23] MEDS: Acetaminophen 500 MG Tablet 1000 MG PO ×3 (05:39→18:19)
[2020-04-23 05:56] VITALS: BP 100/56; PULSE 125; RESP 18; TEMP 38; O2SAT 94
[2020-04-23 06:14] LABS: Hematocrit 36.3 % (37-47); Hemoglobin 12.3 g/dL (12.0-15.0); Mean Corp Hgb Conc 33.9 g/dL (32-36); Mean Corpuscular Hgb 29.4 pg (27.0-32.0); Mean Corpuscular Volume 86.6 fL (81-99); Mean Platelet Vol. 9.1 fl (6.2-12.0); Platelet Count 367 K/mm3 (150-450); RBC Distribution Width SD 40.2 fl (35.1-43.9); Red Blood Count 4.19 M/mm3 (4.2-5.4); White Blood Count 15.6 K/mm3 (4.4-11.0)
[2020-04-23 06:31] LABS: Erythrocyte Sedimentation Rate 34 mm/hr (0-30)
[2020-04-23 06:49] LABS: AST(SGOT) 10 U/L (15-37); Alanine Aminotransfer ALT/SGPT 23 U/L (13-56); Albumin, Serum 2.8 g/dL (3.2-5.0); Alkaline Phosphatase 66 U/L (45-117); Anion Gap 6 (5-15); BUN 7 mg/dL (7-18); BUN/Creat Ratio 8.1 RATIO (10-20); Calcium,Total 7.8 mg/dL (8.5-10.1); Chloride 103 mmol/L (98-107); Creatinine, Serum 0.86 mg/dL (0.55-1.02); EST Glomerular Filtration Rate 79 mL/min (>60); Est Glom Filt Rate - Afr Amer 96 mL/min (>60); Globulin 2.7 g/dL (2.2-4.2); Glucose 103 mg/dL (74-106); Potassium 3.8 mmol/L (3.5-5.1); Protein, Total 5.5 g/dL (6.4-8.2); Sodium Level 133 mmol/L (136-145)
[2020-04-23] MEDS: Docusate Sodium 100 MG Capsule PO ×2 (09:01→20:41)
[2020-04-23 09:30] VITALS: BP 100/48; PULSE 99; RESP 16; TEMP 36.6; O2SAT 100
--- NOTE | 2020-04-23 10:45 | PN.SURG_ITS ---
Patient Problems: Active and Suspected Problems (Last Reviewed 04/23/20 @ 16:[address] Ceefrino Landa MD) Postoperative fever (Acute) Viral syndrome (Acute) Subjective: Postop #11 Patient feels tired. She is breathing ok. Had temp to 101.9 at 18:25 yesterday. - Physical Exam Vitals/I&O's: Vital Signs Temp Pulse Resp BP Pulse Ox 98 F 99 16 100/48 L 100 04/23/20 09:30 04/23/20 09:30 04/23/20 09:30 04/23/20 09:30 04/23/20 09:30 Oxygen Delivery Method Room Air Weight: 234 lb 8 oz Body Mass Index (BMI) 35.2 Intake and Output for Last 24 Hours 04/21/20 04/22/20 04/23/20 23:59 23:59 23:59 Intake Total 1847 / 2332 1272 / 1272 Output Total 35 / 335 780 / 780 Balance 1811 492 / 492 Drainage 35 ml yesterday, 55 ml today. General: Alert, Oriented x3 HEENT: PERRLA, EOMI Oral: Moist Mucosa Neck: Supple Abdomen: Soft, Non-Distended Skin: Incision - breast incisions are dry and intact. Breasts are soft and symmetrical. Mild redness seen on the medial aspect right breast reconstruction. Neurological: Cranial nerves II-XII grossly intact Psych/Mental Status: Normal Affect, Appropriate Microbiology Past 72 Hours 04/22/20 11:59 Mucosa - Nose SARS-CoV-2 Antigen (Rapid) - Final Laboratory Results 04/22/20 12:50: Sodium 137, Potassium 4.2, Chloride 106, Carbon Dioxide 23.0, Anion Gap 8, BUN 8, Creatinine 0.80, Estim Creat Clear Calc 99.01, Est GFR (MDRD) Af Amer 104, Est GFR (MDRD) Non-Af 86, BUN/Creatinine Ratio 10.0, Glucose 94, Calcium 8.9, Total Bilirubin 0.50, Direct Bilirubin 0.12, AST 11 L, ALT 33, Alkaline Phosphatase 81, Total Protein 6.9, Albumin 3.7, Globulin 3.2 04/22/20 14:25: Urine Color Yellow, Urine Clarity Clear, Urine pH 7.0, Ur Specific [place] 1.010, Urine Protein Negative, Urine Glucose (UA) Normal, Urine Ketones Negative, Urine Occult Blood Negative, Urine Nitrite Negative, Urine Bilirubin Negative, Urine Urobilinogen Normal, Ur Leukocyte Esterase 25 H, Urine RBC 0 SEEN, Urine WBC 0-5 SEEN, Ur Squamous Epith Cells 0-5 SEEN, Urine Bacteria 1+, Urine Mucus 0 SEEN 04/22/20 16:15: WBC 15.4 H, RBC 4.33, Hgb 12.5, Hct 37.4, MCV 86.4, MCH 28.9, MCHC 33.4, RDW Std Deviation 39.8, RDW Coeff of Tae 12.8, Plt Count 326, MPV 8.9, Immature Gran % (Auto) 0.400, Neut % (Auto) 75.9 H, Lymph % (Auto) 14.7 L, [place] % (Auto) 7.5, Eos % (Auto) 1.2, Baso % (Auto) 0.3, Absolute Neuts (auto) 11.7 H, Absolute Lymphs (auto) 2.26, Nucleated RBC % 0 04/22/20 16:15: Lactic Acid 0.6 04/23/20 05:50: WBC 15.6 H, RBC 4.19 L, Hgb 12.3, Hct 36.3 L, MCV 86.6, MCH 29.4, MCHC 33.9, RDW Std Deviation 40.2, RDW Coeff of Tae 13.0, Plt Count 367, MPV 9.1, ESR 34 H 04/23/20 05:50: Sodium 133 L, Potassium 3.8, Chloride 103, Carbon Dioxide 24.0, Anion Gap 6, BUN 7, Creatinine 0.86, Estim Creat Clear Calc 92.10, Est GFR (MDRD) Af Amer 96, Est GFR (MDRD) Non-Af 79, BUN/Creatinine Ratio 8.1 L, Glucose 103, Calcium 7.8 L, Total Bilirubin 0.60, AST 10 L, ALT 23, Alkaline Phosphatase 66, C-React Prot Ext Range 208.00 H, Total Protein 5.5 L, Albumin 2.8 L, Globulin 2.7, Albumin/Globulin Ratio 1.0 Diagnostic Data Chest X-Ray 04/22/20 12:35 IMPRESSION: The lungs are clear. No focal infiltrate is seen. Electronically Signed: Donta Graham, at 13:02 EST , Service support , Current Medications Acetaminophen (Acetaminophen 500 Mg Tablet) 1,000 mg PO Q6H PRN PRN PRN Reason: Pain 1-10 or Fever Last Admin: 04/23/20 05:39 Dose: 1,000 mg Documented by: Diazepam (Diazepam 5 Mg Tablet) 5 mg PO 4X/DAY PRN PRN PRN Reason: SPASMS Last Admin: 04/23/20 00:07 Dose: 5 mg Documented by: Docusate Sodium (Docusate Sodium 100 Mg Capsule) 100 mg PO BID [facility] Last Admin: 04/23/20 09:01 Dose: 100 mg Documented by: Enoxaparin Sodium (Enoxaparin 40 Mg/0.4 Ml Syringe) 40 mg SC DAILY@0600 [facility] Last Admin: 04/23/20 05:38 Dose: 40 mg Documented by: Cefepime HCl 1 gm/ Sodium (Chloride) 50 mls @ 100 mls/hr IV Q8 [facility] Last Infusion: 04/23/20 06:09 Dose: Infused Documented by: Lactated Ringer's () 1,000 mls @ 60 mls/hr IV .[id number] [facility] Last Infusion: 04/23/20 06:39 Dose: 60 mls/hr Documented by: Metronidazole (Flagyl) 500 mg in 100 mls @ 100 mls/hr IV Q8 [facility] Vancomycin IV Pharmacy to Dose (1 ea/ Sodium Chloride) 500 mls @ 250 mls/hr IV X1 PRN; Protocol PRN Reason: Rx to Dose Ondansetron HCl (Ondansetron 4 Mg/2 Ml Vial) 4 mg IV Q6H PRN PRN PRN Reason: NAUSEA Last Admin: 04/22/20 18:35 Dose: 4 mg Documented by: Oxycodone HCl (Oxycodone 5 Mg Tablet) 10 mg PO Q4H PRN PRN PRN Reason: Pain Score 6-10 Last Admin: 04/23/20 05:38 Dose: 10 mg Documented by: Promethazine HCl (Promethazine 25 Mg Tablet) 25 mg PO Q4H PRN PRN PRN Reason: NAUSEA/VOMITING Sodium Chloride (0.9% Saline Lock 10 Ml Syringe) 10 - 40 ml IV UD PRN PRN Reason: SALINE FLUSH Medical Necessity - Tobacco Use Smoking Status: Former smoker Assessment/Plan All Active Problems (Last Reviewed 04/23/20 @ 16:[address] Ceferino Landa MD) Postoperative fever (Acute) Viral syndrome (Acute) Palpitations (Acute) False labor before 37 completed weeks of gestation (Resolved) Acute cystitis (Resolved) 1. Postoperative fever. 2. Viral syndrome. 3. s/p recent bilateral breast reconstruction with delayed left breast reconstruction with removal of saline tissue manager fixed income and replacement prepectoral cohesive gel implant (800 ml) and delayed right breast reconstruction with removal of saline tissue manager fixed income and replacement prepectoral cohesive gel implant (800 ml) on 04/12/20. 4. Mild cellulitis right breast reconstruction. 5. Acquired absence bilateral breasts and nipples. 6. Prophylactic bilateral breast removal (areolar sparing). 7. 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 8. Deformity reconstructed breasts. 9. Family history of breast cancer. 10. Former smoker. Patient is breathing ok. Initial CXR from the ED was ok. She was started on Cefepime and developed mild cellulitis right breast reconstruction on the medial aspect. Initially Vancomycin and Flagyl were ordered. However with her allergy to Vancomycin, it was changed to Cleocin. She had a fever spike to 101.9 last night. Will repeat the CXR tomorrow. Will do a COVID PCR today. If the PCR is negative, then she can be transferred off the COVID floor to [facility]. Her WBC is 15.6. If the redness worsens or doesn't resolve and she continues to have fever despite IV antibiotics over the next couple of days, then she would need operative intervention and removal of the implants. She voices understanding. She is having trouble with IV access. Will order a midline for access.
[2020-04-23] MEDS: Lactated Ringers 1,000 ML 60 ML IV (11:46)
--- NOTE | 2020-04-23 13:25 | NURSING ---
report given to Nan on [facility]. Since negative Covid test, pt will be transferred to [facility]
[2020-04-23 15:15] VITALS: BP 103/59; PULSE 90; RESP 18; TEMP 36.7; O2SAT 95
[2020-04-23] MEDS: Ondansetron 4 MG/2 ML Vial IV (17:09)
[2020-04-23 20:48] VITALS: BP 117/75; PULSE 107; RESP 18; TEMP 37.1; O2SAT 100
[2020-04-24] MEDS: Acetaminophen 500 MG Tablet 1000 MG PO ×3 (00:01→18:04)
[2020-04-24] MEDS: oxyCODONE 5 MG Tablet 10 MG PO ×2 (00:01→06:18)
[2020-04-24 00:06] VITALS: BP 102/66; PULSE 95; RESP 16; TEMP 37; O2SAT 96
[2020-04-24] MEDS: Lactated Ringers 1,000 ML 60 ML IV (05:26)
[2020-04-24 05:36] VITALS: BP 111/67; PULSE 86; RESP 16; TEMP 36.4; O2SAT 99
[2020-04-24 05:54] LABS: Hematocrit 39.3 % (37-47); Hemoglobin 12.6 g/dL (12.0-15.0); Mean Corp Hgb Conc 32.1 g/dL (32-36); Mean Corpuscular Hgb 29.6 pg (27.0-32.0); Mean Corpuscular Volume 92.3 fL (81-99); Mean Platelet Vol. 9.2 fl (6.2-12.0); Platelet Count 291 K/mm3 (150-450); RBC Distribution Width CV 13.5 % (11.6-14.6); Red Blood Count 4.26 M/mm3 (4.2-5.4)
[2020-04-24] MEDS: Enoxaparin 40 MG/0.4 ML Syringe SC (06:19)
[2020-04-24 06:33] LABS: Anion Gap 4 (5-15); BUN 6 mg/dL (7-18); BUN/Creat Ratio 8.8 RATIO (10-20); Calcium,Total 8.3 mg/dL (8.5-10.1); Chloride 111 mmol/L (98-107); Creatinine, Serum 0.68 mg/dL (0.55-1.02); EST Glomerular Filtration Rate 104 mL/min (>60); Est Glom Filt Rate - Afr Amer 125 mL/min (>60); Estimated Creatinine Clearance 116.48 ml/min; Glucose 120 mg/dL (74-106); Potassium 3.9 mmol/L (3.5-5.1); Sodium Level 139 mmol/L (136-145)
[2020-04-24 09:01] VITALS: BP 110/72; PULSE 90; RESP 16; TEMP 36.8; O2SAT 96
[2020-04-24] MEDS: 0.9% Saline Lock 10 ML Syringe IV (09:02)
[2020-04-24] MEDS: Ondansetron 4 MG/2 ML Vial IV (09:02)
[2020-04-24] MEDS: diazePAM 5 MG Tablet PO (09:12)
[2020-04-24] MEDS: Docusate Sodium 100 MG Capsule PO ×2 (09:12→20:41)
--- NOTE | 2020-04-24 09:57 | PN.SURG_ITS ---
Patient Problems: Active and Suspected Problems (Last Reviewed 04/23/20 @ 16:[address] Ceferino Landa MD) Postoperative fever (Acute) Viral syndrome (Acute) Subjective: Postop #12 Patient has a headache. - Physical Exam Vitals/I&O's: Vital Signs Temp Pulse Resp BP Pulse Ox 98.2 F 90 16 110/72 96 04/24/20 09:01 04/24/20 09:01 04/24/20 09:01 04/24/20 09:01 04/24/20 09:01 Oxygen Delivery Method Room Air Weight: 234 lb 8 oz Body Mass Index (BMI) 35.2 Intake and Output for Last 24 Hours 04/22/20 04/23/20 04/24/20 23:59 23:59 23:59 Intake Total 1847 / 2332 2804 / 2804 459 / 459 Output Total 35 / 335 1105 / 1105 15 / 15 Balance 1811 / 1996 1699 / 1699 444 / 444 Drainage 55 ml yesterday. General: Alert, Oriented x3 HEENT: PERRLA, EOMI Oral: Moist Mucosa Neck: Supple Abdomen: Soft, Non-Distended Skin: Incision - breast incisions are dry and intact. Breasts are soft and symmetrical. Mild redness seen on the medial aspect right breast reconstruction slowly resolving. Neurological: Cranial nerves II-XII grossly intact Psych/Mental Status: Normal Affect, Appropriate Microbiology Past 72 Hours 04/22/20 11:59 Mucosa - Nose SARS-CoV-2 Antigen (Rapid) - Final Laboratory Results 04/23/20 11:35: COVID-19 (BRIAN) Not Detected 04/24/20 05:18: WBC 8.0, RBC 4.26, Hgb 12.6, Hct 39.3, MCV 92.3 D, MCH 29.6, MCHC 32.1 D, RDW Std Deviation 46.0 H, RDW Coeff of Tae 13.5, Plt Count 291, MPV 9.2 04/24/20 05:18: Sodium 139, Potassium 3.9, Chloride 111 H, Carbon Dioxide 24.0, Anion Gap 4 L, BUN 6 L, Creatinine 0.68, Estim Creat Clear Calc 116.48, Est GFR (MDRD) Af Amer 125, Est GFR (MDRD) Non-Af 104, BUN/Creatinine Ratio 8.8 L, Glucose 120 H, Calcium 8.3 L Current Medications Acetaminophen (Acetaminophen 500 Mg Tablet) 1,000 mg PO Q6H PRN PRN PRN Reason: Pain 1-10 or Fever Last Admin: 04/24/20 06:19 Dose: 1,000 mg Documented by: Diazepam (Diazepam 5 Mg Tablet) 5 mg PO 4X/DAY PRN PRN PRN Reason: SPASMS Last Admin: 04/24/20 09:12 Dose: 5 mg Documented by: Docusate Sodium (Docusate Sodium 100 Mg Capsule) 100 mg PO BID [facility] Last Admin: 04/24/20 09:12 Dose: 100 mg Documented by: Enoxaparin Sodium (Enoxaparin 40 Mg/0.4 Ml Syringe) 40 mg SC DAILY@0600 [facility] Last Admin: 04/24/20 06:19 Dose: 40 mg Documented by: Cefepime HCl 1 gm/ Sodium (Chloride) 50 mls @ 100 mls/hr IV Q8 [facility] Last Infusion: 04/24/20 06:49 Dose: Infused Documented by: Lactated Ringer's () 1,000 mls @ 60 mls/hr IV .[id number] [facility] Last Infusion: 04/24/20 06:49 Dose: 60 mls/hr Documented by: Clindamycin Phosphate 600 mg/ (Dextrose) 54 mls @ 100 mls/hr IV Q6 [facility] Last Infusion: 04/24/20 06:00 Dose: Infused Documented by: Ondansetron HCl (Ondansetron 4 Mg/2 Ml Vial) 4 mg IV Q6H PRN PRN PRN Reason: NAUSEA Last Admin: 04/24/20 09:02 Dose: 4 mg Documented by: Oxycodone HCl (Oxycodone 5 Mg Tablet) 10 mg PO Q4H PRN PRN PRN Reason: Pain Score 6-10 Last Admin: 04/24/20 06:18 Dose: 10 mg Documented by: Promethazine HCl (Promethazine 25 Mg Tablet) 25 mg PO Q4H PRN PRN PRN Reason: NAUSEA/VOMITING Sodium Chloride (0.9% Saline Lock 10 Ml Syringe) 10 - 40 ml IV UD PRN PRN Reason: SALINE FLUSH Last Admin: 04/24/20 09:02 Dose: 10 ml Documented by: Medical Necessity - Tobacco Use Smoking Status: Former smoker Assessment/Plan All Active Problems (Last Reviewed 04/23/20 @ 16:[address] Ceferino Landa MD) Infection of breast implant (Acute) Postoperative fever (Acute) Viral syndrome (Acute) Palpitations (Acute) False labor before 37 completed weeks of gestation (Resolved) Acute cystitis (Resolved) 1. Postoperative fever,resolved. 2. Viral syndrome. 3. s/p recent bilateral breast reconstruction with delayed left breast reconstruction with removal of saline tissue zinc miner blasting and replacement prepectoral cohesive gel implant (800 ml) and delayed right breast reconstruction with removal of saline tissue zinc miner blasting and replacement prepectoral cohesive gel implant (800 ml) on 04/12/20. 4. Mild cellulitis right breast reconstruction, slowly resolving. 5. Acquired absence bilateral breasts and nipples. 6. Prophylactic bilateral breast removal (areolar sparing). 7. 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 8. Deformity reconstructed breasts. 9. Family history of breast cancer. 10. Former smoker. Patient is breathing ok. Initial CXR from the ED was ok. Will repeat CXR tomorrow. The mild cellulitis right breast reconstruction on the medial aspect slowly resolving. Continue Cleocin and Cefepime. She has been afebrile the last day. COVID PCR was negative. Her WBC has normalized from 15.6 dowon to 8.0. If the redness continues to resolve with no more fever, will change to po antibiotics tomorrow. Other option if the redness continues to resolve but not completely is to continue the IV antibiotics at home for a couple of weeks and reassess. Otherwise if redness worsens despite IV antibiotics and fever recurs, then would need operative intervention and removal of the implants. She voices understanding that surgery may be necessary.
[2020-04-24 14:29] VITALS: BP 109/53; PULSE 94; RESP 14; TEMP 36.7; O2SAT 97
[2020-04-24 20:48] VITALS: BP 107/66; PULSE 86; RESP 16; TEMP 37.1; O2SAT 99
[2020-04-25] MEDS: Lactated Ringers 1,000 ML 60 ML IV ×2 (00:04→14:26)
[2020-04-25] MEDS: Acetaminophen 500 MG Tablet 1000 MG PO ×2 (00:04→22:12)
[2020-04-25] MEDS: diazePAM 5 MG Tablet PO ×2 (00:05→22:13)
[2020-04-25 00:12] VITALS: BP 103/59; PULSE 83; RESP 16; TEMP 36.7; O2SAT 98
[2020-04-25 04:57] LABS: Hematocrit 35.6 % (37-47); Hemoglobin 11.8 g/dL (12.0-15.0); Mean Corp Hgb Conc 33.1 g/dL (32-36); Mean Corpuscular Hgb 29.1 pg (27.0-32.0); Mean Corpuscular Volume 87.7 fL (81-99); Mean Platelet Vol. 9.2 fl (6.2-12.0); Platelet Count 356 K/mm3 (150-450); RBC Distribution Width SD 41.4 fl (35.1-43.9); Red Blood Count 4.06 M/mm3 (4.2-5.4); White Blood Count 6.7 K/mm3 (4.4-11.0)
[2020-04-25 05:17] LABS: Anion Gap 5 (5-15); BUN 6 mg/dL (7-18); Calcium,Total 8.3 mg/dL (8.5-10.1); Chloride 108 mmol/L (98-107); EST Glomerular Filtration Rate 120 mL/min (>60); Est Glom Filt Rate - Afr Amer 145 mL/min (>60); Estimated Creatinine Clearance 132.02 ml/min; Glucose 92 mg/dL (74-106); Potassium 3.9 mmol/L (3.5-5.1); Sodium Level 140 mmol/L (136-145)
[2020-04-25 05:29] VITALS: BP 105/64; PULSE 75; RESP 18; TEMP 36.7; O2SAT 96
[2020-04-25] MEDS: Enoxaparin 40 MG/0.4 ML Syringe SC (06:15)
--- NOTE | 2020-04-25 08:50 | RAD_ITS ---
STUDY: X-RAY CHEST REASON FOR EXAM: Female, 34 years old. POST OP FEVER TECHNIQUE: PA and lateral views of the chest. COMPARISON: Comparison is made with prior examination dated 04/22/2020. FINDINGS: Drainage tubes are seen overlying both breasts. The lungs are clear and expanded. There is no demonstrated pleural abnormality. Normal size heart. Normal mediastinum and yandy. Normal visualized pulmonary arteries. Normal visualized aortic arch and descending thoracic aorta. There are mild degenerative changes of the visualized thoracic spine. Normal visualized ribs, clavicles, and shoulders. There is no demonstrated abnormality of the visualized soft tissue structures of the upper abdomen. RAD/Chest PA and Lateral IMPRESSION: No acute abnormality is seen. Electronically Signed: Donta Graham, at 9:10 EST , Service support ,
[2020-04-25 09:47] VITALS: BP 127/73; PULSE 89; RESP 18; TEMP 36.5; O2SAT 98
[2020-04-25] MEDS: Docusate Sodium 100 MG Capsule PO ×2 (10:03→22:12)
--- NOTE | 2020-04-25 11:33 | PCM.PN.SRG ---
Patient Problems: Active and Suspected Problems (Last Reviewed 04/23/20 @ 16:[address] Ceferino Landa MD) Postoperative fever (Acute) Viral syndrome (Acute) Subjective: Postop #13 Patient is resting comfortably. Her headache has resolved. - Physical Exam Vitals/I&O's: Vital Signs Temp Pulse Resp BP Pulse Ox 97.7 F L 89 18 127/73 H 98 04/25/20 09:47 04/25/20 09:47 04/25/20 09:47 04/25/20 09:47 04/25/20 09:47 Oxygen Delivery Method Room Air Weight: 234 lb 8 oz Body Mass Index (BMI) 35.2 Intake and Output for Last 24 Hours 04/23/20 04/24/20 04/25/20 23:59 23:59 23:59 Intake Total 2804 / 2804 2203 / 2203 632 / 632 Output Total 1105 / 1105 30 / 30 20 / 20 Balance 1699 / 1699 2173 / 2173 612 / 612 Drainage 30 ml yesterday, 20 ml today. General: Alert, Oriented x3 HEENT: PERRLA, EOMI Oral: Moist Mucosa Neck: Supple Abdomen: Soft, Non-Distended Skin: Incision - inramammary breast incisions are dry and intact. Breasts are soft and symmetrical. Mild redness seen on the medial aspect right breast reconstruction nearly resolved., - - Right lateral nipple incision has a small dry scab present. Sutures removed today without difficulty. Some loose inferior scab sharply debrided. Healing dermis present. Measures 0.9 x 0.4 cm. Silver dressing applied. Neurological: Cranial nerves II-XII grossly intact Psych/Mental Status: Normal Affect, Appropriate Microbiology Past 72 Hours 04/23/20 05:50 Blood Culture (Wb) - Anticubital Left Blood Culture - Preliminary No growth in 48 hours. 04/23/20 05:50 Blood Culture (Wb) - Left Forearm Blood Culture - Preliminary No growth in 48 hours. 04/22/20 11:59 Mucosa - Nose SARS-CoV-2 Antigen (Rapid) - Final Laboratory Results 04/25/20 04:20: WBC 6.7, RBC 4.06 L, Hgb 11.8 L, Hct 35.6 L, MCV 87.7, MCH 29.1, MCHC 33.1, RDW Std Deviation 41.4, RDW Coeff of Tae 13.0, Plt Count 356, MPV 9.2 04/25/20 04:20: Sodium 140, Potassium 3.9, Chloride 108 H, Carbon Dioxide 27.0, Anion Gap 5, BUN 6 L, Creatinine 0.60, Estim Creat Clear Calc 132.02, Est GFR (MDRD) Af Amer 145, Est GFR (MDRD) Non-Af 120, BUN/Creatinine Ratio 10.0, Glucose 92, Calcium 8.3 L Diagnostic Data Chest X-Ray 04/25/20 08:50 IMPRESSION: No acute abnormality is seen. Electronically Signed: Donta Juanleonmichael, at 9:10 EST , Service support , Current Medications Acetaminophen (Acetaminophen 500 Mg Tablet) 1,000 mg PO Q6H PRN PRN PRN Reason: Pain 1-10 or Fever Last Admin: 04/25/20 00:04 Dose: 1,000 mg Documented by: Diazepam (Diazepam 5 Mg Tablet) 5 mg PO 4X/DAY PRN PRN PRN Reason: SPASMS Last Admin: 04/25/20 00:05 Dose: 5 mg Documented by: Docusate Sodium (Docusate Sodium 100 Mg Capsule) 100 mg PO BID [facility] Last Admin: 04/25/20 10:03 Dose: 100 mg Documented by: Enoxaparin Sodium (Enoxaparin 40 Mg/0.4 Ml Syringe) 40 mg SC DAILY@0600 [facility] Last Admin: 04/25/20 06:15 Dose: 40 mg Documented by: Cefepime HCl 1 gm/ Sodium (Chloride) 50 mls @ 100 mls/hr IV Q8 [facility] Last Infusion: 04/25/20 06:46 Dose: Infused Documented by: Lactated Ringer's () 1,000 mls @ 60 mls/hr IV .[id number] [facility] Last Infusion: 04/25/20 06:46 Dose: 60 mls/hr Documented by: Clindamycin Phosphate 600 mg/ (Dextrose) 54 mls @ 100 mls/hr IV Q6 [facility] Last Infusion: 04/25/20 06:03 Dose: Infused Documented by: Ondansetron HCl (Ondansetron 4 Mg/2 Ml Vial) 4 mg IV Q6H PRN PRN PRN Reason: NAUSEA Last Admin: 04/24/20 09:02 Dose: 4 mg Documented by: Oxycodone HCl (Oxycodone 5 Mg Tablet) 10 mg PO Q4H PRN PRN PRN Reason: Pain Score 6-10 Last Admin: 04/24/20 06:18 Dose: 10 mg Documented by: Promethazine HCl (Promethazine 25 Mg Tablet) 25 mg PO Q4H PRN PRN PRN Reason: NAUSEA/VOMITING Sodium Chloride (0.9% Saline Lock 10 Ml Syringe) 10 - 40 ml IV UD PRN PRN Reason: SALINE FLUSH Last Admin: 04/24/20 09:02 Dose: 10 ml Documented by: Medical Necessity - Tobacco Use Smoking Status: Former smoker Assessment/Plan All Active Problems (Last Reviewed 04/23/20 @ 16:[address] Ceferino Landa MD) Infection of breast implant (Acute) Postoperative fever (Acute) Viral syndrome (Acute) Palpitations (Acute) False labor before 37 completed weeks of gestation (Resolved) Acute cystitis (Resolved) 1. Postoperative fever,resolved. 2. Viral syndrome. 3. s/p recent bilateral breast reconstruction with delayed left breast reconstruction with removal of saline tissue agricultural production engineer and replacement prepectoral cohesive gel implant (800 ml) and delayed right breast reconstruction with removal of saline tissue agricultural production engineer and replacement prepectoral cohesive gel implant (800 ml) on 04/12/20. 4. Mild cellulitis right breast reconstruction infection, nearly resolved. 5. Acquired absence bilateral breasts and nipples. 6. Prophylactic bilateral breast removal (areolar sparing). 7. 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 8. Deformity reconstructed breasts. 9. Family history of breast cancer. 10. Former smoker. 11. Abrasion right lateral nipple. Patient is resting comfortably. Her headache has resolved. She is breathing ok. Repeat CXR normal today. The mild cellulitis right breast reconstruction infection on the medial aspect nearly resolved. Continue Cleocin and Cefepime. She continues to be afebrile. COVID PCR was negative. Her WBC is normal at 6.7. Drains were removed today without difficulty. Sutures from right lateral nipple incision removed today. A small dry scab is present. The inferior aspect of the scab was loose and sharply debrided. Dermis present underneath. Silver dressing applied to be done daily. Will discharge home on IV Cefepime for 2 weeks. Will change the Cleocin to po at discharge. She has pain medication at home. Will renew her Valium for spasm (30 tabs). Instructed her on daily Silver dressing changes to right lateral nipple abrasion. Anticipate discharge tomorrow after the IV antibiotics have been set up with the infusion company. Will need weekly labs while on Cefepime (CBC, CMP, ESR, CRP).
--- NOTE | 2020-04-25 12:00 | CASEMGMT ---
AYAH FORMAN Face to Face with patient for initial transition planning/care coordination assessment. AYAH FORMAN introduced self and role at [facility]. Patient lying in bed, alert and oriented. Patient willing to participate in assessment and is able to answer all questions appropriately. Care providers, pharmacy, and demographics verified. Patient wishes to discharge home, denies need for home health at this time. Patient states she has no further needs or concerns at this time. CM to follow for discharge planning needs that may arise. PCP: None, has list of PCPs Specialists: Carline, [employer]; [employer] Preferred Pharmacy: [facility] Insurance: MMO Prescription Benefit: yes Living Will/HPOA: none LNOK: Living Arrangements: Patient lives with in a single story home with 1 step to enter. Patient states they are in the process of moving to [address], [place] [address]. Transportation: self/ DME/HHC: Patient states she has shower chair at home. Patient states she has had IV ATBs and HHC previous but was several years ago. AYAH FORMAN provided patient with list of in-network HHC and infusion companies. Patient would like [facility] HHC 1st choice and [facility] HHC 2nd choice and [facility] for infusion company. Disposition Plan: Patient to discharge home with HHC, family support, and follow-up plans in place. Cyndie DE ANDA, RN, CM
--- NOTE | 2020-04-25 13:30 | CASEMGMT ---
AYAH FORMAN sent referral to [facility] option care for IV ATB. AYAH FORMAN also sent referral to [facility], and they are not able to accept the patient due to out of service area when patient moves. AYAH FORMAN sent referral to [facility] and awaiting call back. AYAH FORMAN will continue to follow this patient and plan for a safe discharge.
[2020-04-25 14:22] VITALS: BP 110/65; PULSE 100; RESP 18; TEMP 36.9; O2SAT 100
--- NOTE | 2020-04-25 16:16 | CASEMGMT ---
AYAH FORMAN received call back from [facility] and they are able to accept the patient with start of care for tomorrow 04/27 for 2pm. AYAH FORMAN also received call from Reta at [facility] with cost for patient. Patient has $550 deductible then covered 90%. Reta to updated patient regarding cost. AYAH FORMAN updated patient regarding HHC setup with [facility] with planned start of care for 1400 and potential cost. AYAH FORMAN updated Dr. Landa with discharge plans and planned start of care for [facility] at 1400 04/27.
[2020-04-25 20:12] VITALS: BP 117/70; PULSE 94; RESP 18; TEMP 36.6; O2SAT 99
--- NOTE | 2020-04-25 21:24 | DCINST_ITS ---
- Discharge Diagnoses Current Active Problems: Current Active and Chronic Problems (Last Reviewed 04/23/20 @ 16:[address] Ceferino Landa MD) Postoperative fever (Acute) Viral syndrome (Acute) BRCA2 gene mutation positive in female (Chronic) You will use the following diet at home:: No restrictions, Other - encourage n utritional supplementation with protein to help the healing process. Discharge Activity: May not drive while taking narcotic pain medications., May Shower, - - keep head elevated. continue lifting restriction. continue compression bra. May shower in (days): 1 May resume sexual activity in: 10-14 days Weight Bearing Status: Weight bearing as tolerated Lifting Restrictions: 20 lbs. Keep extremity elevated above heart level: - - elevate head. Call your doctor if your incision/area has: Continuous Slow Oozing, Sudden Increased Bleeding, Increased Pain/ Swelling, Increased Redness, Foul Smelling Discharge, Swelling at the incision site Call your doctor if you observe: Fever of 101 or Higher, Coldness, Increased Pain, Shortness of breath, Chest pain, Calf discomfort, Uncontrolled pain Suture Line Care: - - dry dressings daily. daily Silver dressing changes to right lateral nipple abrasion. Change Dressing in (Days):: 1 - dry dressings daily. daily Silver dressing changes to right lateral nipple abrasion. Cleanse incision/area with: Soap & Water - cleanse the abrasion wound right lateral nipple area with soap and water at the time of the Silver dressing change. Pending Tests on Discharge: Home Health to draw labs weekly while IV antibiotics are being given. (CBC, CMP, ESR, CRP). Please fax results to [phone]. Allergies/Adverse Reactions: Allergies vancomycin Allergy (Intermediate, Verified 04/22/20 11:27) Hives Medications to take at Discharge oxycodone-acetaminophen 5 mg-325 mg tablet 1 tab PO Q6H PRN #28 tab 04/21/20 Cefepime HCl [Maxipime] 1 gm IV Q8 14 Days #42 vial 04/25/20 Clindamycin [Cleocin] 300 mg PO TID #42 cap 04/25/20 Diazepam [Valium] 5 mg PO 4X/DAY PRN PRN #30 tab 04/25/20 The following prescriptions were given: Clindamycin [Cleocin] 300 mg PO TID #42 cap Transmission Status: Received by [facility] Cefepime HCl [Maxipime] 1 gm IV Q8 14 Days #42 vial Prescription Printed Diazepam [Valium] 5 mg PO 4X/DAY PRN PRN #30 tab PRN Reason: Spasms Transmission Status: Received by [facility] Primary Care Physician: Care Physician,No Primary [Primary Care Provider] - Test Results: Test results from this visit will be discussed in further detail at your follow- up appointment, if applicable. Please Follow Up With: Ceferino Landa MD When: one week. call [phone] for appt. Proposed Discharge Date: 04/26/20
[2020-04-25] MEDS: oxyCODONE 5 MG Tablet 10 MG PO (22:14)
[2020-04-26 02:34] VITALS: BP 110/58; PULSE 64; RESP 18; TEMP 36.5; O2SAT 98
[2020-04-26] MEDS: Enoxaparin 40 MG/0.4 ML Syringe SC (06:09)
--- NOTE | 2020-04-26 09:03 | PCM.PN.SRG ---
Patient Problems: Active and Suspected Problems (Last Reviewed 04/23/20 @ 16:[address] Ceferino Landa MD) Postoperative fever (Acute) Viral syndrome (Acute) Subjective: Postop #14 She is resting comfortably in bed. She is denying any headache at this time. - Physical Exam Vitals/I&O's: Vital Signs Temp Pulse Resp BP Pulse Ox 97.7 F L 64 18 110/58 L 98 04/26/20 02:34 04/26/20 02:34 04/26/20 02:34 04/26/20 02:34 04/26/20 02:34 Oxygen Delivery Method Room Air Weight: 234 lb 8 oz Body Mass Index (BMI) 35.2 Intake and Output for Last 24 Hours 04/24/20 04/25/20 04/26/20 23:59 23:59 23:59 Intake Total 2203 / 2203 2660 / 2660 858 / 858 Output Total / Balance 2173 / 2173 2640 / 2640 858 / 858 General: Alert, Oriented x3, Cooperative HEENT: Atraumatic Oral: Moist Mucosa Lungs: Normal air movement Cardiovascular: Regular rate Abdomen: Soft Extremities: No edema, Capillary Refill Less than 3 Seconds Skin: Ulcer/ Wound - Right breast nipple has small open area that is pink and stable, minimal drainage, silver dressing changed. Musculoskeletal: No Tenderness to Palpation of Joints or Extremities Neurological: Cranial nerves II-XII grossly intact Psych/Mental Status: Normal Affect, Appropriate Microbiology Past 72 Hours 04/23/20 05:50 Blood Culture (Wb) - Anticubital Left Blood Culture - Preliminary No growth in 48 hours. 04/23/20 05:50 Blood Culture (Wb) - Left Forearm Blood Culture - Preliminary No growth in 48 hours. Current Medications Acetaminophen (Acetaminophen 500 Mg Tablet) 1,000 mg PO Q6H PRN PRN PRN Reason: Pain 1-10 or Fever Last Admin: 04/25/20 22:12 Dose: 1,000 mg Documented by: Diazepam (Diazepam 5 Mg Tablet) 5 mg PO 4X/DAY PRN PRN PRN Reason: SPASMS Last Admin: 04/25/20 22:13 Dose: 5 mg Documented by: Docusate Sodium (Docusate Sodium 100 Mg Capsule) 100 mg PO BID [facility] Last Admin: 04/25/20 22:12 Dose: 100 mg Documented by: Enoxaparin Sodium (Enoxaparin 40 Mg/0.4 Ml Syringe) 40 mg SC DAILY@0600 [facility] Last Admin: 04/26/20 06:09 Dose: 40 mg Documented by: Cefepime HCl 1 gm/ Sodium (Chloride) 50 mls @ 100 mls/hr IV Q8 [facility] Last Infusion: 04/26/20 06:44 Dose: Infused Documented by: Lactated Ringer's () 1,000 mls @ 60 mls/hr IV .[id number] [facility] Last Admin: 04/25/20 14:26 Dose: 60 mls/hr Documented by: Clindamycin Phosphate 600 mg/ (Dextrose) 54 mls @ 100 mls/hr IV Q6 [facility] Last Infusion: 04/26/20 06:09 Dose: Infused Documented by: Ondansetron HCl (Ondansetron 4 Mg/2 Ml Vial) 4 mg IV Q6H PRN PRN PRN Reason: NAUSEA Last Admin: 04/24/20 09:02 Dose: 4 mg Documented by: Oxycodone HCl (Oxycodone 5 Mg Tablet) 10 mg PO Q4H PRN PRN PRN Reason: Pain Score 6-10 Last Admin: 04/25/20 22:14 Dose: 10 mg Documented by: Promethazine HCl (Promethazine 25 Mg Tablet) 25 mg PO Q4H PRN PRN PRN Reason: NAUSEA/VOMITING Sodium Chloride (0.9% Saline Lock 10 Ml Syringe) 10 - 40 ml IV UD PRN PRN Reason: SALINE FLUSH Last Admin: 04/24/20 09:02 Dose: 10 ml Documented by: Medical Necessity - Tobacco Use Smoking Status: Former smoker Assessment/Plan All Active Problems (Last Reviewed 04/23/20 @ 16:[address] Ceferino Landa MD) Infection of breast implant (Acute) Postoperative fever (Acute) Viral syndrome (Acute) Palpitations (Acute) False labor before 37 completed weeks of gestation (Resolved) Acute cystitis (Resolved) 1. Postoperative fever,resolved. 2. Viral syndrome. 3. s/p recent bilateral breast reconstruction with delayed left breast reconstruction with removal of saline tissue wood furniture assembler and replacement prepectoral cohesive gel implant (800 ml) and delayed right breast reconstruction with removal of saline tissue wood furniture assembler and replacement prepectoral cohesive gel implant (800 ml) on 04/12/20. 4. Mild cellulitis right breast reconstruction infection, nearly resolved. 5. Acquired absence bilateral breasts and nipples. 6. Prophylactic bilateral breast removal (areolar sparing). 7. 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 8. Deformity reconstructed breasts. 9. Family history of breast cancer. 10. Former smoker. 11. Abrasion right lateral nipple. Patient is resting comfortably. Her headache has resolved. She is breathing ok. Repeat CXR normal yesterday. The mild cellulitis right breast reconstruction infection on the medial aspect nearly resolved. She continues to be afebrile. COVID PCR was negative. Her WBC is normal at 6.7. Right nipple open area on inferior portion of scabbing is pink, stable with Dermis present. Silver dressing changed today and will be changed daily. Will discharge home on IV Cefepime for 2 weeks. Will change the Cleocin to po at discharge. She has pain medication at home. Instructed her on daily Silver dressing changes to right lateral nipple abrasion. Anticipate discharge today after the IV antibiotics have been set up with the infusion company. Will need weekly labs while on Cefepime (CBC, CMP, ESR, CRP). She will follow up in one week at the office.
[2020-04-26 09:48] VITALS: BP 121/75; PULSE 106; RESP 18; TEMP 36.7; O2SAT 100
--- NOTE | 2020-04-26 09:51 | CASEMGMT ---
AYAH FORMAN NOTE: Clarification: Cyndie POON CM note states start of HHC/Home IV atb's arranged for 04/27 @ 1400. Call placed to [facility] and to [facility]. Clarification received that HHC/atb's start of care is today 04/26 @ 1400. Pt confirms she will be moving 05/05/20 to [place], [place]. [facility] aware and new updated address in [place] faxed to both [facility] and [facility] at this time. They both state they are able to cover this area. Per Katelyn @ [facility], she was able to reach pt to discuss financials. She is aware pt is discharging this AM, that [facility] will do start of care today @ 2 PM, and states [facility] will have IV medication/supplies delivered to pt's home by 2 PM today. Pt made aware [facility] and [facility] both able to cover [place], [place] area and that [facility] will be out to see her at [place] address today for start of care @ 2 PM. She denies having other needs/questions/concerns. Ruth DE ANDA RN CM
--- NOTE | 2020-04-26 22:04 | PCM.DC.SUM ---
Discharge Date and Diagnosis - Problem List Patient Problems: Active and Suspected Problems (Last Reviewed 04/23/20 @ 16:[address] Ceferino Landa MD) Postoperative fever (Acute) Viral syndrome (Acute) Date of Admission: 04/22/20 Date of Discharge: 04/26/20 - Primary Discharge Diagnosis Acute Problems: Postoperative fever Viral syndrome Mild cellulitis right breast reconstruction infection. Abrasion right lateral nipple. - Secondary Discharge Diagnosis Chronic Problems: History of bilateral breast implants previously removed Former smoker Family history of breast cancer painful areolar scarring bilateral breast reconstruction. 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 No focal infiltrate is seen. Electronically Signed: Donta Graham, at 13:02 EST , Service support , Chest X-Ray 04/25/20 08:50 IMPRESSION: No acute abnormality is seen. Electronically Signed: Donta Graham, at 9:10 EST , Service support , CONSULTATIONS None. Operations: None Procedures: PICC line placement Summary of Care Provided: Patient had surgery on 04/12/20 where she underwent delayed left breast reconstruction with removal of saline tissue iap displays analyst and replacement prepectoral cohesive gel implant (800 ml) and delayed right breast reconstruction with removal of saline tissue iap displays analyst and replacement prepectoral cohesive gel implant (800 ml). She did well initially until last night when she started developing fevers of up to 102. She went to the ED this morning. Temperature in the ED was 100. Her COVID was negative. Her CXR was ok. Her Urinalysis showed 1+ bacteria. Her WBC was 15.4. On exam, her breast incisions are intact. Breasts are soft and symmetrical. No redness seen. There is no evidence of infection at this time. Even though her COVID was negative, she has a postop fever with a viral syndrome and early COVID is suspected. The viral load is not high enough at this time to trigger a positive test. Will repeat the CXR as necessary. If fevers continue, will check a PCR COVID test. At that time would consider Infectious Diseases evaluation for possible monoclonal treatment. Her breast implants are at risk for secondary infection from this viral syndrome. Will start IV antibiotics for this, Cefepime. The next day saw a temperature of 101.9. Repeat COVID PCR was done which was negative. Repeat WBC was 15.6. Mild redness was seen on the medial aspect right breast reconstruction. Clindamycin was added to the Cefepime. Since the COVID PCR was negative, she was transferred from the [facility] to [facility]. Over the next few days, the redness slowly improved. She remained afebrile for the rest of her hospital stay, down to 8.0 and then 6.7 at discharge. On 04/25/20, the sutures were removed from the right lateral nipple area. Small dry scab was seen. Abrasion was noted as healing dermis noted. Silver dressing changes started to be done daily. The drains were removed today as well. Repeat CXR was done which was normal. Compared to her day of admission, she felt much better on the day of discharge. [facility] for her IV antibiotics, Cefepime, were set up and she was discharged home on 04/26/20. For discharge, the Cleocin was changed to oral. On 04/26/20, she was discharged home in satisfactory condition. Will continue IV Cefepime for 2 weeks. Will continue Cleocin po for 2 weeks. Will check labs weekly while on the IV Cefepime (CBC, CMP, ESR, CRP). Wrote script for Valium for spasm (30 tabs). She has enough pain medication at home at this time. Continue Silver dressing changes daily to the right lateral nipple abrasion. Continue lifting restriction, and head elevation, and compression. Condition upon discharge is good. Followup office one week. Patient understands that if the situation worsens with increasing redness and recurrent fever, then the implants would need to be removed. She voices understanding. Patient Problems: Active and Suspected Problems (Last Reviewed 04/23/20 @ 16:[address] Ceferino Landa MD) Postoperative fever (Acute) Viral syndrome (Acute) - Physical Exam Vitals/I&O's: Vital Signs Temp Pulse Resp BP Pulse Ox 98.0 F 106 H 18 121/75 H 100 04/26/20 09:48 04/26/20 09:48 04/26/20 09:48 04/26/20 09:48 04/26/20 09:48 Oxygen Delivery Method Room Air Weight: 234 lb 8 oz Body Mass Index (BMI) 35.2 Intake and Output for Last 24 Hours 04/24/20 04/25/20 04/26/20 23:59 23:59 23:59 Intake Total 2203 / 2203 2660 / 2660 1858 / 1858 Output Total Balance 2173 / 2173 2640 / 2640 1858 / 1858 Microbiology Past 72 Hours 04/23/20 05:50 Blood Culture (Wb) - Anticubital Left Blood Culture - Preliminary No growth in 48 hours. 04/23/20 05:50 Blood Culture (Wb) - Left Forearm Blood Culture - Preliminary No growth in 48 hours. Discharge Diet: No Restrictions, - - encourage nutritional supplementation with protein to help the healing process. Discharge Activity: May not drive while taking narcotic pain medications., May Shower, - - keep head elevated. continue lifting restriction. continue compression bra. May shower in (days): 1 May resume sexual activity in: 10-14 days Weight Bearing Status: Weight bearing as tolerated Keep extremity elevated above heart level: - - elevate head. Call your doctor if your incision/area has: Continuous Slow Oozing, Sudden Increased Bleeding, Increased Pain/ Swelling, Increased Redness, Foul Smelling Discharge, Swelling at the incision site Call your doctor if you observe: Fever of 101 or Higher, Coldness, Increased Pain, Shortness of breath, Chest pain, Calf discomfort, Uncontrolled pain Suture Line Care: - - dry dressings daily. daily Silver dressing changes to right lateral nipple abrasion. Change Dressing in (Days):: 1 - dry dressings daily. daily Silver dressing changes to right lateral nipple abrasion. Cleanse incision/area with: Soap & Water - cleanse the abrasion wound right lateral nipple area with soap and water at the time of the Silver dressing change. Home Medications: Medications to take at Discharge oxycodone-acetaminophen 5 mg-325 mg tablet 1 tab PO Q6H PRN #28 tab 04/21/20 Cefepime HCl [Maxipime] 1 gm IV Q8 14 Days #42 vial 04/25/20 Clindamycin [Cleocin] 300 mg PO TID #42 cap 04/25/20 Diazepam [Valium] 5 mg PO 4X/DAY PRN PRN #30 tab 04/25/20 Following Prescriptions Were Given to Patient: Clindamycin [Cleocin] 300 mg PO TID #42 cap Transmission Status: Received by [facility] Cefepime HCl [Maxipime] 1 gm IV Q8 14 Days #42 vial Prescription Printed Diazepam [Valium] 5 mg PO 4X/DAY PRN PRN #30 tab PRN Reason: Spasms Transmission Status: Received by [facility] Primary Care Physician: Care Physician,No Primary [Primary Care Provider] - Please Follow Up With: Ceferino Landa MD When: one week. call [phone] for appt. Disposition: Home with Home Health Minutes spent on discharge:: 35 Patient Condition:: Stable Medical Necessity - Tobacco Use Smoking Status: Former smoker Meaningful Use Info Meaningful Use Diagnoses (Choose all that apply): None applicable
== END 2020-04-26 10:10 | disposition home or self-care (01) | DRG 864 ==
LOC: ED 15:48 → MS2 19:30 → MS3 04-23 15:08
PROVIDERS: Admitting Provider Surgery; Emergency Provider Emergency Medicine; Visit Provider Surgery
DX: R50.82 Postprocedural fever (principal); T85.44XA Capsular contracture of breast implant, initial encounter; T85.79XA Infection and inflammatory reaction due to other internal prosthetic devices, implants and grafts, initial encounter; B34.9 Viral infection, unspecified; N61.0 Mastitis without abscess; Y83.1 Surgical operation with implant of artificial internal device as the cause of abnormal reaction of the patient, or of later complication, without mention of misadventure at the time of the procedure; Z15.01 Genetic susceptibility to malignant neoplasm of breast; Z80.3 Family history of malignant neoplasm of breast; Z85.3 Personal history of malignant neoplasm of breast; Z87.891 Personal history of nicotine dependence; Z88.1 Allergy status to other antibiotic agents; Z90.13 Acquired absence of bilateral breasts and nipples
CPT/HCPCS: 36415; 71045; 71046; 80048; 80053; 80076; 81001; 83605; 85025; 85027; 85652; 86140; 87040; 87426; 87635; 99285; J7030; J7040; J7120; A4216; J2405; U0002

== ENCOUNTER → 2020-05-09 15:05 | Outpatient (CLI) | payer OTHER, SELFPAY ==
[2020-05-09 16:10] LABS: Erythrocyte Sedimentation Rate 5 mm/hr (0-30)
[2020-05-09 16:13] LABS: Hematocrit 39.7 % (37-47); Hemoglobin 13.4 g/dL (12.0-15.0); Mean Corp Hgb Conc 33.8 g/dL (32-36); Mean Corpuscular Hgb 29.5 pg (27.0-32.0); Mean Corpuscular Volume 87.4 fL (81-99); Platelet Count 376 K/mm3 (150-450); RBC Distribution Width CV 13.2 % (11.6-14.6); RBC Distribution Width SD 41.3 fl (35.1-43.9); Red Blood Count 4.54 M/mm3 (4.2-5.4); White Blood Count 10.7 K/mm3 (4.4-11.0)
[2020-05-09 16:34] LABS: AST(SGOT) 23 U/L (15-37); Alanine Aminotransfer ALT/SGPT 28 U/L (13-56); Albumin, Serum 3.6 g/dL (3.2-5.0); Alkaline Phosphatase 75 U/L (45-117); Anion Gap 8 (5-15); BUN 11 mg/dL (7-18); BUN/Creat Ratio 14.2 RATIO (10-20); CRP 7.38 mg/L (0.0-3.0); Calcium,Total 9.3 mg/dL (8.5-10.1); Chloride 104 mmol/L (98-107); Creatinine, Serum 0.77 mg/dL (0.55-1.02); EST Glomerular Filtration Rate 90 mL/min (>60); Est Glom Filt Rate - Afr Amer 109 mL/min (>60); Globulin 3.7 g/dL (2.2-4.2); Glucose 87 mg/dL (74-106); Potassium 3.8 mmol/L (3.5-5.1); Protein, Total 7.3 g/dL (6.4-8.2); Sodium Level 138 mmol/L (136-145)
== END ==
PROVIDERS: Surgery; Referring Provider Nurse Practitioner Family; Visit Provider Nurse Practitioner Family
DX: R50.82 Postprocedural fever (principal); T85.79XA Infection and inflammatory reaction due to other internal prosthetic devices, implants and grafts, initial encounter; N65.0 Deformity of reconstructed breast; S20.111A Abrasion of breast, right breast, initial encounter; Z90.13 Acquired absence of bilateral breasts and nipples; Z15.01 Genetic susceptibility to malignant neoplasm of breast; Z15.02 Genetic susceptibility to malignant neoplasm of ovary; Z15.09 Genetic susceptibility to other malignant neoplasm; Z40.01 Encounter for prophylactic removal of breast
CPT/HCPCS: 36415; 80053; 85027; 85652; 86140

== ENCOUNTER → 2020-06-24 16:39 | Outpatient (CLI) | payer OTHER, SELFPAY | PROVIDERS: Referring Provider Nurse Practitioner Family; Visit Provider Nurse Practitioner Family | DX: N61.1 Abscess of the breast and nipple (principal); T85.49XA Other mechanical complication of breast prosthesis and implant, initial encounter; Z98.86 Personal history of breast implant removal; T85.44XA Capsular contracture of breast implant, initial encounter; N65.0 Deformity of reconstructed breast; Z40.01 Encounter for prophylactic removal of breast; Z90.13 Acquired absence of bilateral breasts and nipples; Z15.01 Genetic susceptibility to malignant neoplasm of breast; Z15.02 Genetic susceptibility to malignant neoplasm of ovary; Z15.09 Genetic susceptibility to other malignant neoplasm; N64.4 Mastodynia; Z80.3 Family history of malignant neoplasm of breast; Z87.891 Personal history of nicotine dependence | CPT/HCPCS: 87070; 87075; 87077; 87186; 87205 ==

== ENCOUNTER 2020-08-04 11:48 | Observation (INO) | payer OTHER, SELFPAY ==
--- NOTE | 2020-08-03 21:26 | PCM.HP.BLA ---
History and Physical Date of Admission: 08/04/20 HISTORY OF PRESENT ILLNESS Patient is a 35 year old female who initially presented for evaluation for breast reconstruction. She has a family history of breast cancer. Because of that, she underwent genetic testing in 2008. 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 With an increased risk of developing breast cancer, she underwent bilateral prophylactic mastectomy (areolar sparing) and placement of submuscular saline tissue expanders. This was followed by removal of the expanders with replacement implants. She states she developed issues with the breast reconstruction and underwent revision of her reconstructed breasts in 2011 with another saline tissue autobody technician. This was followed by removal of the expanders with replacement implants. She thinks they were cohesive gel implants. Also later on in 2011, she underwent bilateral nipple reconstruction which developed healing issues that required wound care and antibiotics until healed. She has persistent pain in her areolar areas from the scarring and a pectoralis muscle animation deformity when she uses her arms or exercises. She had an MRI done on 06/08/19. It showed right breast tissue is normal with a normal right breast implant in place. No abnormal masses or lesions are identified within the breast. There is an enhancing right axillary lymph node measuring about 2.14 cm x 0.6 cm in size probably representing a reactive lymph node. The left breast tissue is normal with a normal left breast implant in place. No abnormal masses or lesions are identified within the left breast. There are no abnormal enhancing masses or areas of non-mass enhancement in the left breast. There are no enlarged or abnormal lymph nodes. There is no abnormality in the visualized regions of the chest or liver. She went to surgery on 01/19/20 where she underwent revision bilateral breast reconstruction with removal of bilateral cohesive gel implants and bilateral capsulectomy and revision bilateral pectoralis muscle animation deformity with placement bilateral prepectoral tissue expanders (700 ml filled to 400 ml) and placement bilateral MTF FlexHD acellular dermal matrix grafts (21 x 24 cm on the left, and 23 x 26 cm on the right). Healing has been uneventful and she continued the next stage in her breast reconstruction process on 04/12/20 which was delayed left breast reconstruction with removal of saline tissue autobody technician and replacement prepectoral cohesive gel implant (800 ml) and delayed right breast reconstruction with removal of saline tissue autobody technician and replacement prepectoral cohesive gel implant (800 ml). She came into the office on 04/22/20 with acute onset fever, up to 102. She was nauseated with fatigue. She also had burning when voiding. She was admitted with postop fever and viral syndrome. She was Covid negative, but was at risk with persistent fever. Repeat COVID was negative. While hospitalized, she developed a mild cellulitis right breast that responded to IV antibiotics with Cefepime and Clindamycin. Her drains were removed in the hospital. Her sutures right lateral nipple were removed. There was an abrasion wound present and Silver dressing changes started. She was discharged on 04/26/20 with a PICC line for 2 weeks of IV Cefepime. She was also discharged on oral Clindamycin. On 05/09/20 the IV Cefepime was completed and the PICC line was pulled. She developed an ulceration right lateral nipple area. Discussed with the patient that the recent hospitalization with the viral syndrome and cellulitis on the right breast probably put extra stress on the right lateral nipple incision which led to the ulceration. Exposure of the implant was noted. Wound care was started with Silver dressing changes daily. A wound culture was obtained on 06/24/20. It showed MRSE. She was started on Doxycycline, and her Levaquin was restarted. 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 BRCA2 gene mutation positive in female Palpitations False labor before 37 completed weeks of gestation Acute cystitis Exposure right breast implant PAST SURGICAL HISTORY bilateral breast implants delivery bilateral mastectomy open reduction and internal fixation (ORIF) procedure salpingectomy tonsillectomy Revision bilateral breast reconstruction with removal of bilateral cohesive gel implants and bilateral capsulectomy and revision bilateral pectoralis muscle animation deformity with placement bilateral prepectoral tissue expanders (700 ml filled to 400 ml) and placement bilateral MTF FlexHD acellular dermal matrix grafts (21 x 24 cm on the left, and 23 x 26 cm on the right) - 01/19/20 Delayed left breast reconstruction with removal of saline tissue autobody technician and replacement prepectoral cohesive gel implant (800 ml) and delayed right breast reconstruction with removal of saline tissue autobody technician and replacement prepectoral cohesive gel implant (800 ml) - 04/12/20 ALLERGIES vancomycin MEDICATIONS None. FAMILY HISTORY Grandmother - Cancer, breast and uterine Aunt - Cancer, multiple aunts with breast cancer SOCIAL HISTORY Smoking Status: Former smoker how long ago did patient quit smokin alcohol intake: current substance use type: does not use REVIEW OF SYSTEMS General - Denies fever, fatigue, and weight loss. Eyes - Denies cataracts and glaucoma. ENT - Denies nasal congestion and sore throat. Endocrine - Denies excessive thirst and urination. Skin - Denies suspicious lesions and skin cancer. Breast - Bilateral mastectomy with reconstruction 2009. Reconstruction revised 2011. Has bilateral cohesive gel implants reconstruction. Has nonhealing ulcer right lateral breast area with exposed implant. Musculoskeletal - Denies joint pain, joint stiffness, weakness of muscles and joints, back pain, and arthritis. ORIF left clavicle 2003. Neuro - Denies headaches. Cardiovascular - Denies chest pain, fatigue, and shortness of breath with exertion. Psych - Denies anxiety and depression. Respiratory - Denies chronic cough and shortness of breath. Gastrointestinal - Denies nausea, vomiting, diarrhea, and constipation. Hematologic - Denies abnormal bruising and bleeding. Genitourinary - Denies hematuria and urinary frequency. Right salpingectomy 2013. section 2019. PHYSICAL EXAMINATION General - Alert and oriented. Bra size was 36 A-B before the implants. HEENT - PERRL. EOMI. Throat is clear. Neck - Supple and non-tender. No cervical adenopathy. Breasts - Bilateral breast incisions are healed except for a nonhealing ulcer right lateral nipple area with exposed implant. Has palpable cohesive gel implants. Measures 1.8 x 2.4 cm. No breast masses palpable. No visible pectoralis muscle animation deformity bilaterally. Patient feels less pulling on the chest wall laterally on the right, but it is persistent. No axillary adenopathy. Breast width is 14 cm bilaterally. Lungs- Clear to auscultation. Heart - Regular rate and rhythm. Abdomen - Soft and non distended. There is a horizontal scar in pubic area. There is redundant skin and subcutaneous tissue between the umbilicus and the pubic area. Extremities - FROM. No axillary adenopathy. Radial pulses are palpable. Neuro - CN II-XII grossly intact. Psych - Normal mood and affect. ASSESSMENT 1. Nonhealing ulcer right breast reconstruction with exposed implant. 2. Painful areolar scarring bilateral breast reconstruction, improved since the last surgery. 3. Acquired absence bilateral breasts and nipples. 4. Prophylactic bilateral breast removal (areolar sparing). 5. 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 6. Deformity reconstructed breasts. 7. Painful pectoralis muscle animation deformity, improved after placement of prepectoral saline tissue expanders. 8. Capsular contracture bilateral breast reconstruction, improved after capsulectomies. 9. History of placement of bilateral cohesive gel implants reconstruction. 10. Family history of breast cancer. 11. Former smoker. 12. MRSE. PLAN Discussed options with the patient. The implant will need to be exchanged. If pus is noted at that time of surgery which I doubt, then no implant exchange would be done at this time. At the time of surgery, if no pus is seen, will irrigate the wound and obtain additional cultures. Will debride the wound and proceed with complex secondary wound closure or a possible skin flap. The exposed breast implant would be removed with an implant exchange. Because this would shorten the breast pocket, a new implant that would be placed may be smaller. That would lead to some asymmetry. Drains will also be placed. If a smaller implant is necessary, will let the breasts heal initially. This will give the patient time to decide how noticeable the asymmetry is. Can discuss further breast reconstruction options with her at that time such as replacing the same size implant in the right breast as in the left breast for symmetry purposes. She has decided to proceed with the surgery. She does not want to try and heal the ulcer with Silver dressing changes as it may take a while and there is no guarantee for healing. The longer the implant is exposed would weaken the implant for possible rupture in the future as well as increase the risk for infection. If an infection develops during the wound care process, then the implant would be removed without an implant exchange until after the infection has been treated. At that point, there would be skin contraction and the breast reconstruction process would restart with another tissue autobody technician. She wants to avoid that scenario. Surgery will be done under general anesthesia with a surgical observation overnight stay in the hospital. She will have drains in for several days. She will be maintained on antibiotics until the drains are removed of if the operative culture is positive. Patient was informed of the risks and complications of the procedure including alternatives to surgery. These were discussed with the patient personally. Patient voices understanding and wishes to proceed. Some of the risks and complications were included in a form from the [employer]. We discussed the current risks associated with COVID-19. While it is understood that there is a community spread of COVID-19, the risk of radha COVID-19 while at [facility] ([facility]) is very low; however, the risk cannot be completely mitigated because of the community spread of the disease. We discussed in detail the risk of exposure to and/or potential harm posed by the COVID-19 virus with having a surgery/procedure at this time versus the risk of delaying the surgery/procedure. It is not possible to know either the risk of delaying the surgery or procedure or chance of getting an infection with perfect accuracy, but a joint decision was made to proceed at this time with the scheduled surgery/procedure as indicated on the consent form. Patient was notified that we will need to comply with any screening or testing [facility] wishes to perform or that surgery may be delayed for any positive results. Discussed with the patient that I was tested for COVID-19 on 10/15/19 which was negative and on 10/29/19 which was negative and on 11/12/19 which was negative and on 11/26/19 which was negative and on 12/10/19 which was negative and on 12/31/19 which was negative and on 01/21/20 which was negative and on 02/25/20 which was negative and on 03/17/20 which was negative and on 04/05/20 which was negative. My testing regimen at this time is to be COVID-19 tested every 2 weeks or so. I received the COVID-19 vaccine (Moderna) on 04/13/20 and the second vaccine dose was received on 05/11/20. When I was hospitalized on 06/13/20 I was tested for COVID-19 which was negative. I was also tested for COVID-19 on 06/28/20 which was negative and on 07/25/20 which was negative. Procedure Criteria Procedure Type: Elective COVID Risk Discussion: The surgeon/proceduralist and patient have discussed in detail the risk of exposure to and/or potential harm posed by the COVID-19 virus with having a surgery/procedure at this time versus the risk of delaying the surgery/procedure. It is not possible to know either the risk of delaying the surgery or procedure or chance of getting an infection with perfect accuracy, but a joint decision was made between the patient and the surgeon/proceduralist to proceed at this time with the scheduled surgery/procedure as indicated on the consent form.
[2020-08-04] VITALS (15 sets, daily range): BP systolic 101–134; BP diastolic 60–86; PULSE 75–100; RESP 12–18; TEMP 36.2–37.3; O2SAT 94–100; BMI 34.7
[2020-08-04] MEDS: Lactated Ringers 1,000 ML 40 ML IV (07:50)
[2020-08-04 08:04] LABS: Internal QC Validated? YES +Cl - CLEAR BKGD; Pregnancy, Urine Negative Negative; Record Kit Lot#,Urine Preg 42100
[2020-08-04 08:07] LABS: Magnesium 2.1 mg/dL (1.6-2.6)
[2020-08-04] MEDS: Acetaminophen 500 MG Tablet 1000 MG PO ×2 (08:18→15:32)
[2020-08-04] MEDS: Gabapentin 600 MG Tablet PO (08:18)
[2020-08-04] MEDS: Scopolamine 1mg/72hr Patch 1 PATCH TD (08:19)
[2020-08-04 08:20] LABS: Bedside Glucose 80 mg/dL (70-110)
[2020-08-04] MEDS: levoFLOXacin IV 500 MG/100 ML BAG 100 MG IV (08:52)
--- NOTE | 2020-08-04 09:00 | SOF_PTH ---
PATIENT: GUERO CASTORENA LOC: [id number] U#:[id number] AGE/SX: 35/F ROOM: ID308 RE08/04/[address]: Dr. Ceferino Landa MD : 1985 BED: 1 DIS: 08/06/2020 SPEC #: [id number] RECD: 08/04/20 13:54 STATUS: PARVEEN FABIAN #: [id number] IRVING: 08/04/20 09:[address]: Ceferino Landa DEPT: SURGICAL PATHOLOGY RECD BY: Sia Kevin ENTERED: 08/05/20 08:11 SP TYPE: SOFT TISS OTHR DR: No Primary Care Phys Tissues: Right breast, NOS Procedures: Surgery Specimen Level IV HEADER OPERATION: ERAS, revision breast reconstruction with excisional debridement PRE-OP DIAGNOSIS: Nonhealing ulcer right breast reconstruction with exposed implant TISSUE SUBMITTED: Right breast tissue and capsule MICROSCOPIC DIAGNOSIS Right breast tissue and capsule, excision: Granulation with associated fibrosis, reparative and reactive changes. Skin with no pathologic change. AM:david 08/08/2020 MICROSCOPIC DESCRIPTION Slides are reviewed. GROSS DESCRIPTION Received in fixative is one container labeled with the patient's name and designated right breast. The specimen consists of a single elongated fragment of guadalupe skin with attached hemorrhagic soft tissue measuring 5.5 x 1 x 0.6 cm. No lesions are identified. The specimen is serially sectioned and totally submitted in two cassettes. / AM:david 08/05/20 TC:3 CPT: 96247
[2020-08-04] MEDS: Lidocaine 1% /Epi 1:100 (20ml) 20 ML Vial (09:29)
[2020-08-04] MEDS: Lactated Ringers 1,000 ML 60 ML IV ×2 (11:31→15:26)
--- NOTE | 2020-08-04 11:39 | PCM.OPRPT ---
Report of Operation Date of Procedure: 08/04/20 Pre-Operative Diagnosis: 1. Nonhealing ulcer right breast reconstruction with exposed implant. 2. Acquired absence bilateral breasts and nipples. 3. Prophylactic bilateral breast removal (areolar sparing). 4. 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 5. Painful pectoralis muscle animation deformity, improved after placement of prepectoral saline tissue expanders. 6. History of placement of bilateral cohesive gel implants reconstruction. 7. Family history of breast cancer. 8. Former smoker. 9. MRSE. Post-Operative Diagnosis: Same. Surgery/Procedure Performed:: 1. Revision right breast reconstruction with excisional debridement nonhealing ulcer with complex secondary wound closure. 2. Removal exposed implant with replacement cohesive gel implant (800 ml). Description of Surgical Findings:: Patient is a 35 year old female who initially presented for evaluation for breast reconstruction. She has a family history of breast cancer. Because of that, she underwent genetic testing in 2008. 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 With an increased risk of developing breast cancer, she underwent bilateral prophylactic mastectomy (areolar sparing) and placement of submuscular saline tissue expanders. This was followed by removal of the expanders with replacement implants. She states she developed issues with the breast reconstruction and underwent revision of her reconstructed breasts in 2011 with another saline tissue hotel superintendent. This was followed by removal of the expanders with replacement implants. She thinks they were cohesive gel implants. Also later on in 2011, she underwent bilateral nipple reconstruction which developed healing issues that required wound care and antibiotics until healed. She has persistent pain in her areolar areas from the scarring and a pectoralis muscle animation deformity when she uses her arms or exercises. She had an MRI done on 06/08/19. It showed right breast tissue is normal with a normal right breast implant in place. No abnormal masses or lesions are identified within the breast. There is an enhancing right axillary lymph node measuring about 2.14 cm x 0.6 cm in size probably representing a reactive lymph node. The left breast tissue is normal with a normal left breast implant in place. No abnormal masses or lesions are identified within the left breast. There are no abnormal enhancing masses or areas of non-mass enhancement in the left breast. There are no enlarged or abnormal lymph nodes. There is no abnormality in the visualized regions of the chest or liver. She went to surgery on 01/19/20 where she underwent revision bilateral breast reconstruction with removal of bilateral cohesive gel implants and bilateral capsulectomy and revision bilateral pectoralis muscle animation deformity with placement bilateral prepectoral tissue expanders (700 ml filled to 400 ml) and placement bilateral MTF FlexHD acellular dermal matrix grafts (21 x 24 cm on the left, and 23 x 26 cm on the right). Healing has been uneventful and she continued the next stage in her breast reconstruction process on 04/12/20 which was delayed left breast reconstruction with removal of saline tissue hotel superintendent and replacement prepectoral cohesive gel implant (800 ml) and delayed right breast reconstruction with removal of saline tissue hotel superintendent and replacement prepectoral cohesive gel implant (800 ml). She came into the office on 04/22/20 with acute onset fever, up to 102. She was nauseated with fatigue. She also had burning when voiding. She was admitted with postop fever and viral syndrome. She was Covid negative, but was at risk with persistent fever. Repeat COVID was negative. While hospitalized, she developed a mild cellulitis right breast that responded to IV antibiotics with Cefepime and Clindamycin. Her drains were removed in the hospital. Her sutures right lateral nipple were removed. There was an abrasion wound present and Silver dressing changes started. She was discharged on 04/26/20 with a PICC line for 2 weeks of IV Cefepime. She was also discharged on oral Clindamycin. On 05/09/20 the IV Cefepime was completed and the PICC line was pulled. She developed an ulceration right lateral nipple area. Discussed with the patient that the recent hospitalization with the viral syndrome and cellulitis on the right breast probably put extra stress on the right lateral nipple incision which led to the ulceration. Exposure of the implant was noted. Wound care was started with Silver dressing changes daily. A wound culture was obtained on 06/24/20. It showed MRSE. She was started on Doxycycline, and her Levaquin was restarted. Patient was informed of the risks and complications of the procedure including alternatives to surgery. These were discussed with the patient personally. Patient voices understanding and wishes to proceed. Some of the risks and complications were included in a form from the [employer]. IV Fluids - 1100 ml. Urine Output - 175 ml. I used [employer] MemoryGel Breast Implant, Smooth Round High Profile, 800 ml. Reference Number - [id number]. Lot Number - [id number]. Serial Number - [id number]. Expiration - April 24, 2025. I used Antonella absorbable hemostat. Reference Number - [id number]. Lot Number - [id number]. Expiration - March 12, 2025. social services assistant: Zane Breen. Type of Anesthesia:: General Specimen's removed: Right breast tissue and capsule to Pathology and Microbiology. Drains: Arnol. Estimated Blood Loss (mL): 25 ml. Fluids Replaced: 1275 ml (IV Fluids 1100 ml, Urine Output 175 ml). Description of Procedure: Patient was taken to OR in supine position and was placed under general anesthesia. The breasts were prepped and draped in the usual fashion. SCD's were placed for DVT prophylaxis. Perioperative antibiotics were given intravenously. A roche catheter was placed. Using xylocaine with epinephrine, the inframammary scar and nonhealing ulcer were infiltrated. After waiting 5 minutes for the anesthetic to take effect, I made an incision through the inframammary scar down through the subcutaneous tissue until the capsule was seen. A capsulotomy was done and the cohesive gel implant was removed. No pus was seen. Minimal fluid was seen in the breast pocket. I then proceeded with excisional debridement of the nonhealing ulcer and extended the incision in a horizontal direction laterally and in an inferior periareolar direction medially. The ulcer edge was thinned out from the exposed implant, so the excisional debridement was extended a little bit until thicker healthier skin edge was seen. The debrided tissue was sent to Pathology for analysis to rule out carcinoma and to Microbiology for culture. A positive culture will necessitate antibiotic therapy. Before closing this ulcer, I used the wound for better exposure to attend to the superolateral aspect of the breast pocket where she still had some pulling and pain when moving her shoulder. There appears to be some muscle contraction and some of the muscle was incised laterally to minimize muscle pulling. The pectoralis muscle had risen up superiorly. I freed up the muscle up to the clavicle which allowed me to pull it down toward the inframammary fold on the chest wall. Hemostasis was obtained using electrocautery. The inferior edge of the muscle was sutured down to the chest wall using 3-0 Vicryl figure of eight interrupted sutures. I then proceeded with complex secondary wound closure with 3-0 Vicryl interrupted sutures for the underlying biologic graft and capsular layer. The deep dermis and subcutaneous tissue was approximated with 3-0 Monocryl interrupted sutures. The skin was approximated with 4-0 Prolene simple interrupted and vertical mattress interrupted sutures and followed with Histoacryl skin tissue adhesive. I then placed Cotte[place] sizers into the right breast inframammary wound. I used a 700 ml and then a 750 ml Ultra High Profile Cottekill sizer. The 750 ml sizer fit the pocket well but there was too much tension on the ulcer closure. I decided to use a High Profile Cotte[place] sizer since the projection is less, so there should be less tension on the ulcer closure. I placed an 800 ml High Profile [employer]te[place] sizer into the right breast pocket and temporarily closed the inframammary incision with surgical clips. Patient was placed in the sitting position and good shape and contour was noted. The breast skin around the ulcer closure was soft with significantly less tension than the Ultra High Profile [employer] sizers. So it was decided to use the [employer] MemoryGel High Profile breast implant. The implant was placed in Betadine. Our gloves were changed for this portion of the surgery. The right breast pocket was irrigated with Irrisept 0.05% chlorhexidine solution and followed by saline irrigation. A size 15 Arnol drain was placed through a separate stab incision laterally and secured to the skin edge with 3-0 Nylon suture. After saline irrigation, the breast pocket had hemostasis with electrocautery. I then sprayed Antonella absorbable hemostat into the right breast pocket to minimize seroma formation. The 800 ml cohesive gel implant was then placed in the right breast pocket and noting the pectoralis muscle did not move superiorly. I then closed the inframammary incision in multiple layers with 3-0 Vicryl figure of eight interrupted sutures for the underlying biologic graft and capsular layer. A malleable was placed to protect the implant during the portion of the wound closure. The deep dermis and subcutaneous tissue was approximated with 3-0 Monocryl interrupted sutures. The skin was approximated with 3-0 V lock unidirectional barbed running subcuticular suture. This was followed with Histoacryl skin tissue adhesive. Kerlix gauze was placed on the breast incisions followed by an ABD pad and a surgical bra. Patient tolerated the procedure well and was sent to PACU in satisfactory condition. Patient will be sent upstairs for continued postop care. She will be discharged once she is tolerating po analgesia. A positive operative culture will necessitate antibiotic therapy. During the initial perioperative period, will continue Levaquin and Doxycycline. Grafts/Implants Used: [employer] MemoryGel Breast Implant and Antonella. - Complications None. - Admit VTE Documentation VTE Present on Admission: No VTE Mechan Device Prophylaxis: SCD's VTE Pharm Prophylaxis ordered?: Yes Surgery Charges CPT - 88048 ICD-10 - N61.1, T85.49xA, Z90.13, Z40.01, Z15.01, N65.0, Z98.82, Z80.3, Z87.891, T85.79xA
--- NOTE | 2020-08-04 13:34 | SUR.PHASEI ---
ON ADMISSION AT 1200, PATIENT WAS VERY PAINFUL; 10/10. ASKING IF SHE COULD USE NASAL CANNULA RATHER THAN A SIMPLE MASK. O2 APPLIED AT 4L/NC.
[2020-08-04] MEDS: HYDROmorphone 1 MG/ML Syringe IV ×2 (15:26→18:36)
[2020-08-04] MEDS: diazePAM 5 MG Tablet PO (15:32)
[2020-08-04] MEDS: Ensure Surgery 237 ML LIQUID PO (15:33)
[2020-08-04] MEDS: oxyCODONE 5 MG Tablet PO ×2 (16:28→21:01)
[2020-08-04] MEDS: Gabapentin 100 MG Capsule 200 MG PO (18:35)
[2020-08-04] MEDS: 0.9% Saline Lock 10 ML Syringe IV (18:35)
[2020-08-04] MEDS: Doxycycline 100 MG CAPSULE PO (21:18)
[2020-08-04] MEDS: Sertraline 50 MG Tablet PO (21:18)
[2020-08-04] MEDS: Docusate Sodium 100 MG Capsule PO (21:18)
[2020-08-05] VITALS (7 sets, daily range): BP systolic 104–122; BP diastolic 60–69; PULSE 80–102; RESP 16–18; TEMP 36.4–37; O2SAT 93–98
[2020-08-05] MEDS: Acetaminophen 500 MG Tablet 1000 MG PO ×4 (00:39→18:29)
[2020-08-05] MEDS: HYDROmorphone 1 MG/ML Syringe IV ×5 (00:41→18:34)
[2020-08-05] MEDS: diazePAM 5 MG Tablet PO ×3 (01:58→18:33)
[2020-08-05] MEDS: Ondansetron ODT 4 MG Tablet PO (04:51)
[2020-08-05 06:36] LABS: Hematocrit 39.9 % (37-47); Mean Corp Hgb Conc 32.6 g/dL (32-36); Mean Corpuscular Hgb 29.5 pg (27.0-32.0); Mean Corpuscular Volume 90.5 fL (81-99); Mean Platelet Vol. 9.3 fl (6.2-12.0); Platelet Count 346 K/mm3 (150-450); RBC Distribution Width CV 13.1 % (11.6-14.6); RBC Distribution Width SD 43.8 fl (35.1-43.9); Red Blood Count 4.41 M/mm3 (4.2-5.4); White Blood Count 11.3 K/mm3 (4.4-11.0)
--- NOTE | 2020-08-05 06:52 | NURSING ---
Pt stood at bedside this morning and ambulated. Pt tolerated well, pain increased after movement. Pain medication given after pt was assisted back in bed. Pt ordering breakfast at this time.
[2020-08-05 07:08] LABS: Anion Gap 5 (5-15); BUN 6 mg/dL (7-18); BUN/Creat Ratio 8.8 RATIO (10-20); Calcium,Total 8.1 mg/dL (8.5-10.1); Chloride 101 mmol/L (98-107); Creatinine, Serum 0.68 mg/dL (0.55-1.02); EST Glomerular Filtration Rate 104 mL/min (>60); Est Glom Filt Rate - Afr Amer 126 mL/min (>60); Estimated Creatinine Clearance 115.37 ml/min; Glucose 107 mg/dL (74-106); Potassium 4.1 mmol/L (3.5-5.1); Sodium Level 133 mmol/L (136-145)
[2020-08-05] MEDS: Gabapentin 100 MG Capsule 200 MG PO ×3 (09:52→18:30)
[2020-08-05] MEDS: Multivitamins,Ther W-Minerals Tablet 1 TABLET PO (09:52)
[2020-08-05] MEDS: Docusate Sodium 100 MG Capsule PO ×2 (09:52→20:40)
[2020-08-05] MEDS: Lactated Ringers 1,000 ML 40 ML IV ×2 (09:53→14:14)
[2020-08-05] MEDS: Doxycycline 100 MG CAPSULE PO ×2 (09:53→20:41)
[2020-08-05] MEDS: Enoxaparin 40 MG/0.4 ML Syringe SC (09:53)
[2020-08-05] MEDS: levoFLOXacin IV 750 MG/150 ML BAG 100 MG IV (10:08)
--- NOTE | 2020-08-05 11:44 | PN.SURG_ITS ---
Subjective: Postop day #1 Patient resting in bed. She states an increased amount of pain on her right breast going into her shoulder. She states she is having difficulty moving her shoulder due to the pain. - Physical Exam Vitals/I&O's: Vital Signs Temp Pulse Resp BP Pulse Ox 97.6 F L 99 18 106/69 94 08/05/20 04:57 08/05/20 04:57 08/05/20 04:57 08/05/20 04:57 08/05/20 07:56 Oxygen Flow Rate (L/min) 4 Oxygen Delivery Method Room Air Weight: 228 lb 13.437 oz Body Mass Index (BMI) 34.7 Intake and Output for Last 24 Hours 08/03/20 08/04/20 08/05/20 23:59 23:59 23:59 Intake Total 1649.5 / 1899.5 1050 / 1050 Output Total 715 / 1020 1105 / 1105 Balance 934.5 / 879.5 -55 / -55 Right Arnol drain 170 ml yesterday General: Alert, Oriented x3, Cooperative HEENT: Atraumatic Oral: Moist Mucosa Lungs: Normal air movement Cardiovascular: Regular rate Abdomen: Soft Extremities: Capillary Refill Less than 3 Seconds Skin: Incision - Right breast incisions under breast and lateral to the nipple are both dry and intact. Sutures are intact. Arnol drain is draining serosanguineous drainge. No bruising or hematoma. Good breast contour. Continue to wear compression bra/ROBYN wrap. Musculoskeletal: Tenderness - Right upper chest and shoulder tenderness with palpation. Neurological: Cranial nerves II-XII grossly intact Psych/Mental Status: Normal Affect, Appropriate Microbiology Past 72 Hours 08/04/20 12:00 Tissue - Breast Gram Stain - Final 08/04/20 12:00 Tissue - Breast Wound Culture - Preliminary No growth-Final to follow Laboratory Results 08/05/20 06:00: WBC 11.3 H, RBC 4.41, Hgb 13.0, Hct 39.9, MCV 90.5, MCH 29.5, MCHC 32.6, RDW Std Deviation 43.8, RDW Coeff of Tae 13.1, Plt Count 346, MPV 9.3 08/05/20 06:00: Sodium 133 L, Potassium 4.1, Chloride 101, Carbon Dioxide 27.0, Anion Gap 5, BUN 6 L, Creatinine 0.68, Estim Creat Clear Calc 115.37, Est GFR (MDRD) Af Amer 126, Est GFR (MDRD) Non-Af 104, BUN/Creatinine Ratio 8.8 L, Glucose 107 H, Calcium 8.1 L, Prealbumin 16.0 L Current Medications Acetaminophen (Acetaminophen 500 Mg Tablet) 1,000 mg PO Q6 [facility] Last Admin: 08/05/20 05:14 Dose: 1,000 mg Documented by: Diazepam (Diazepam 5 Mg Tablet) 5 mg PO 4X/DAY PRN PRN PRN Reason: SPASMS Last Admin: 08/05/20 10:08 Dose: 5 mg Documented by: Docusate Sodium (Docusate Sodium 100 Mg Capsule) 100 mg PO BID [facility] Last Admin: 08/05/20 09:52 Dose: 100 mg Documented by: Doxycycline Monohydrate (Doxycycline 100 Mg Capsule) 100 mg PO BID [facility] Last Admin: 08/05/20 09:53 Dose: 100 mg Documented by: Enoxaparin Sodium (Enoxaparin 40 Mg/0.4 Ml Syringe) 40 mg SC DAILY [facility] Last Admin: 08/05/20 09:53 Dose: 40 mg Documented by: Enteral Nutritional Formula (Ensure Surgery 237 Ml Liquid) 237 ml PO TIDCM [facility] Last Admin: 08/05/20 09:52 Dose: Not Given Documented by: Gabapentin (Gabapentin 100 Mg Capsule) 200 mg PO TIDCM [facility] Last Admin: 08/05/20 09:52 Dose: 200 mg Documented by: Hydromorphone HCl (Hydromorphone 1 Mg/Ml Syringe) 0.5 - 1 mg IV Q3H PRN PRN PRN Reason: Pain Score 6-10 Last Admin: 08/05/20 10:08 Dose: 1 mg Documented by: Lactated Ringer's () 1,000 mls @ 40 mls/hr IV .Q25H [facility] Last Admin: 08/05/20 09:53 Dose: 40 mls/hr Documented by: Lactated Ringer's () 1,000 mls @ 60 mls/hr IV .[id number] [facility] Last Admin: 08/05/20 01:57 Dose: Not Given Documented by: Levofloxacin (Levaquin Iv) 750 mg in 150 mls @ 100 mls/hr IV Q24 [facility] Last Admin: 08/05/20 10:08 Dose: 100 mls/hr Documented by: Magnesium Chloride (Magnesium Chloride 64 Mg Delay Rel.Tablet) 128 mg PO DAILY PRN PRN PRN Reason: Constipation Multivitamins/Minerals (Multivitamins,Ther W-Minerals Tablet) 1 tablet PO DAILYCM [facility] Last Admin: 08/05/20 09:52 Dose: 1 tablet Documented by: Ondansetron HCl (Ondansetron Odt 4 Mg Tablet) 4 mg PO Q6H PRN PRN PRN Reason: NAUSEA Last Admin: 08/05/20 04:51 Dose: 4 mg Documented by: Oxycodone HCl (Oxycodone 5 Mg Tablet) 5 - 10 mg PO Q4H PRN PRN PRN Reason: Pain Score 4-5 Last Admin: 08/04/20 21:01 Dose: 10 mg Documented by: Sertraline HCl (Sertraline 50 Mg Tablet) 50 mg PO QHS [facility] Last Admin: 08/04/20 21:18 Dose: 50 mg Documented by: Sodium Chloride (0.9% Saline Lock 10 Ml Syringe) 10 - 40 ml IV UD PRN PRN Reason: SALINE FLUSH Last Admin: 08/04/20 18:35 Dose: 20 ml Documented by: Medical Necessity - Tobacco Use Smoking Status: Former smoker Tobacco Use: Non-smoker Assessment/Plan All Active Problems (Last Reviewed 07/23/20 @ 18:14 by Ree Pa DIRECTOR OF DEVELOPMENT, DIRECTOR OF DEVELOPMENT- C) Exposed breast implant (Acute) Ulcer of skin of breast (Acute) Abrasion of breast, right breast, initial encounter (Resolved) Infection of breast implant (Resolved) Postoperative fever (Resolved) Viral syndrome (Resolved) Palpitations (Acute) False labor before 37 completed weeks of gestation (Resolved) Acute cystitis (Resolved) 1. Nonhealing ulcer right breast reconstruction with exposed implant. 2. Acquired absence bilateral breasts and nipples. 3. Prophylactic bilateral breast removal (areolar sparing). 4. 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 5. Painful pectoralis muscle animation deformity, improved after placement of prepectoral saline tissue expanders. 6. History of placement of bilateral cohesive gel implants reconstruction. 7. Family history of breast cancer. 8. Former smoker. 9. MRSE. Patient continues to have increased pain. She is requiring IV pain meds. Right breast incisions are dry and intact. Sutures are intact. Operative dressing removed. Arnol drain is intact and draining serosanguineous drainage. ABD pad placed to cover incisions. Continue compression with either compression bra or ROBYN wrap. Operative wound culture is pending. Continue Levaquin IV and Doxycycline orally. Encouraged ambulation with assistance. Will plan on removing Iqbal catheter tomorrow. Plan on discharge tomorrow when she has better pain control on oral pain medication. [id number]: [id number] Global Visit
[2020-08-05] MEDS: Ensure Surgery 237 ML LIQUID PO (14:13)
[2020-08-05] MEDS: Sertraline 50 MG Tablet PO (20:41)
[2020-08-05] MEDS: oxyCODONE 5 MG Tablet PO (20:44)
[2020-08-06] MEDS: Acetaminophen 500 MG Tablet 1000 MG PO ×3 (00:14→13:20)
[2020-08-06 02:09] VITALS: BP 112/71; PULSE 73; RESP 16; TEMP 36.9; O2SAT 99
[2020-08-06] MEDS: HYDROmorphone 1 MG/ML Syringe IV ×3 (02:13→13:19)
[2020-08-06 06:58] VITALS: O2SAT 98
[2020-08-06] MEDS: Multivitamins,Ther W-Minerals Tablet 1 TABLET PO (08:06)
[2020-08-06] MEDS: Gabapentin 100 MG Capsule 200 MG PO ×2 (08:06→12:38)
[2020-08-06 08:10] VITALS: BP 117/74; PULSE 82; RESP 16; TEMP 37.2; O2SAT 98
[2020-08-06] MEDS: oxyCODONE 5 MG Tablet PO ×2 (08:46→12:37)
[2020-08-06] MEDS: diazePAM 5 MG Tablet PO (08:47)
[2020-08-06 09:00] VITALS: RESP 18
[2020-08-06] MEDS: levoFLOXacin IV 750 MG/150 ML BAG 150 MG IV (09:11)
[2020-08-06] MEDS: Docusate Sodium 100 MG Capsule PO (09:12)
[2020-08-06] MEDS: Enoxaparin 40 MG/0.4 ML Syringe SC (09:12)
[2020-08-06] MEDS: Doxycycline 100 MG CAPSULE PO (09:12)
--- NOTE | 2020-08-06 11:36 | PN.SURG_ITS ---
Subjective: Postop #2 Patient is resting comfortably. Tolerating po analgesia. Feels better today compared to yesterday. - Physical Exam Vitals/I&O's: Vital Signs Temp Pulse Resp BP Pulse Ox 98.9 F 82 18 117/74 98 08/06/20 08:10 08/06/20 08:10 08/06/20 09:00 08/06/20 08:10 08/06/20 08:10 Oxygen Flow Rate (L/min) 4 Oxygen Delivery Method Room Air Weight: 228 lb 13.437 oz Body Mass Index (BMI) 34.7 Intake and Output for Last 24 Hours 08/04/20 08/05/20 08/06/20 23:59 23:59 23:59 Intake Total 1649.5 / 1899.5 4074 / 5074 1800 / 1800 Output Total 715 / 1020 4095 / 6065 3265 / 3265 Balance 934.5 / 879.5 -21 / -991 -1465 / -1465 Drainage 90 ml yesterday, 115 ml today. General: Alert, Oriented x3 HEENT: PERRLA, EOMI Oral: Moist Mucosa Neck: Supple Abdomen: Soft, Non-Distended Skin: Incision - right breast incisions are dry and intact. No vascular compromise on the breast skin flaps. Breast is soft and symmetrical with good breast contour noted. No clinical evidence of hematoma. Neurological: Cranial nerves II-XII grossly intact Psych/Mental Status: Normal Affect, Appropriate Microbiology Past 72 Hours 08/04/20 12:00 Tissue - Breast Gram Stain - Final 08/04/20 12:00 Tissue - Breast Wound Culture - Preliminary No growth-Final to follow 08/04/20 12:00 Tissue - Breast Anaerobic Culture - Preliminary No growth in 48 hours. Current Medications Acetaminophen (Acetaminophen 500 Mg Tablet) 1,000 mg PO Q6 [facility] Last Admin: 08/06/20 05:45 Dose: 1,000 mg Documented by: Diazepam (Diazepam 5 Mg Tablet) 5 mg PO 4X/DAY PRN PRN PRN Reason: SPASMS Last Admin: 08/06/20 08:47 Dose: 5 mg Documented by: Docusate Sodium (Docusate Sodium 100 Mg Capsule) 100 mg PO BID [facility] Last Admin: 08/06/20 09:12 Dose: 100 mg Documented by: Doxycycline Monohydrate (Doxycycline 100 Mg Capsule) 100 mg PO BID [facility] Last Admin: 08/06/20 09:12 Dose: 100 mg Documented by: Enoxaparin Sodium (Enoxaparin 40 Mg/0.4 Ml Syringe) 40 mg SC DAILY [facility] Last Admin: 08/06/20 09:12 Dose: 40 mg Documented by: Enteral Nutritional Formula (Ensure Surgery 237 Ml Liquid) 237 ml PO TIDCM [facility] Last Admin: 08/06/20 08:06 Dose: Not Given Documented by: Gabapentin (Gabapentin 100 Mg Capsule) 200 mg PO TIDCM [facility] Last Admin: 08/06/20 08:06 Dose: 200 mg Documented by: Hydromorphone HCl (Hydromorphone 1 Mg/Ml Syringe) 0.5 - 1 mg IV Q3H PRN PRN PRN Reason: Pain Score 6-10 Last Admin: 08/06/20 07:01 Dose: 1 mg Documented by: Lactated Ringer's () 1,000 mls @ 40 mls/hr IV .Q25H [facility] Last Admin: 08/05/20 14:14 Dose: 40 mls/hr Documented by: Levofloxacin (Levaquin Iv) 750 mg in 150 mls @ 100 mls/hr IV Q24 [facility] Last Admin: 08/06/20 09:11 Dose: 150 mls/hr Documented by: Magnesium Chloride (Magnesium Chloride 64 Mg Delay Rel.Tablet) 128 mg PO DAILY PRN PRN PRN Reason: Constipation Multivitamins/Minerals ([facility]ivitamins,Ther W[facility]Minerals Tablet) [facility] Last Admin: 08/06/20 08:06 Dose: 1 tablet Documented by: Ondansetron HCl (Ondansetron Odt 4 Mg Tablet) 4 mg PO Q6H PRN PRN PRN Reason: NAUSEA Last Admin: 08/05/20 04:51 Dose: 4 mg Documented by: Oxycodone HCl (Oxycodone 5 Mg Tablet) 5 - 10 mg PO Q4H PRN PRN PRN Reason: Pain Score 4-5 Last Admin: 08/06/20 08:46 Dose: 10 mg Documented by: Sertraline HCl (Sertraline 50 Mg Tablet) 50 mg PO QHS [facility] Last Admin: 08/05/20 20:41 Dose: 50 mg Documented by: Sodium Chloride (0.9% Saline Lock 10 Ml Syringe) 10 - 40 ml IV UD PRN PRN Reason: SALINE FLUSH Last Admin: 08/04/20 18:35 Dose: 20 ml Documented by: Medical Necessity - Tobacco Use Smoking Status: Former smoker Tobacco Use: Non-smoker Assessment/Plan All Active Problems (Last Reviewed 07/23/20 @ 18:14 by Ree Pa NP, FIELD SALES SPECIALIST- C) Exposed breast implant (Acute) Ulcer of skin of breast (Acute) Abrasion of breast, right breast, initial encounter (Resolved) Infection of breast implant (Resolved) Postoperative fever (Resolved) Viral syndrome (Resolved) Palpitations (Acute) False labor before 37 completed weeks of gestation (Resolved) Acute cystitis (Resolved) 1. Nonhealing ulcer right breast reconstruction with exposed implant. 2. Acquired absence bilateral breasts and nipples. 3. Prophylactic bilateral breast removal (areolar sparing). 4. 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 5. Painful pectoralis muscle animation deformity, improved after placement of prepectoral saline tissue expanders. 6. History of placement of bilateral cohesive gel implants reconstruction. 7. Family history of breast cancer. 8. Former smoker. 9. MRSE. 10. s/p revision right breast reconstruction with excisional debridement nonhealing ulcer with complex secondary wound closure and removal exposed implant with replacement cohesive gel implant (800 ml). Right breast incisions are dry and intact. No vascular compromise noted on the breast skin flaps. No clinical evidence of hematoma. Breasts are soft and symmetrical with good contour noted. Tolerating po analgesia. Operative cultures are negative thus far. Will send home on Doxycycline for the preop MRSE and Levaquin because of the presence of the implant until the drains are removed. Prealbumin is 16.0. Encourage nutritional supplementation with protein to help the healing process. Keep head elevated. Continue compression bra. No heavy lifting. No showering until the drain is removed in the office. Will remove the sutures in 2 weeks. Tolerating po analgesia. Discharge home today. Followup office one week. Wrote scripts for Doxycycline and Levaquin for 14 days until the drain is removed in the office. Wrote scripts for Dilaudid for pain (40 tabs) and for Valium for spasm (30 tabs). As an outpatient will switch over to Percocet if needed.
--- NOTE | 2020-08-06 11:45 | PCM.DC ---
You will use the following diet at home:: No restrictions Discharge Activity: May Not Drive, May Not Shower - until the drains are removed., - - no heavy lifting. keep head elevated. compression bra. May shower in (days): 10 - after the drain is removed. May resume sexual activity in: 10-14 days Weight Bearing Status: Weight bearing as tolerated Lifting Restrictions: 20 lbs. Keep extremity elevated above heart level: - - elevate head. Call your doctor if your incision/area has: Continuous Slow Oozing, Sudden Increased Bleeding, Increased Pain/ Swelling, Increased Redness, Foul Smelling Discharge, Swelling at the incision site Call your doctor if you observe: Fever of 101 or Higher, Coldness, Increased Pain, Shortness of breath, Chest pain, Calf discomfort, Uncontrolled pain Suture Line Care: - - dry gauze daily Change Dressing in (Days):: 1 - dry gauze daily Cleanse incision/area with: - - may get incisions wet in the shower after the drain is removed. Drain: Suction - ashley drain to bulb suction. empty and record output daily. Allergies/Adverse Reactions: Allergies vancomycin Allergy (Intermediate, Verified 08/04/20 08:08) Hives Medications to take at Discharge sertraline 50 mg tablet 50 mg PO QHS 30 Days #30 tab 05/30/20 Multivitamin with Minerals [Multiple Vitamin] 1 ea PO DAILY 06/01/20 Diazepam [Valium] 5 mg PO 4X/DAY PRN PRN #30 tablet 08/06/20 Doxycycline [Vibramycin] 100 mg PO BID 14 Days #28 capsule 08/06/20 HYDROmorphone tablet [Dilaudid] 2 mg PO Q4H PRN PRN 7 Days #40 tablet 08/06/20 levoFLOXacin tablet [Levaquin tablet] 500 mg PO DAILY 14 Days #14 tablet 08/06/20 The following prescriptions were given: HYDROmorphone tablet [Dilaudid] 2 mg PO Q4H PRN PRN 7 Days #40 tablet PRN Reason: Pain Score 6-10 Transmission Status: Sent to [facility] levoFLOXacin tablet [Levaquin tablet] 500 mg PO DAILY 14 Days #14 tablet Transmission Status: Pending to [facility] Diazepam [Valium] 5 mg PO 4X/DAY PRN PRN #30 tablet PRN Reason: Spasms Transmission Status: Sent to [facility] Doxycycline [Vibramycin] 100 mg PO BID 14 Days #28 capsule Transmission Status: Pending to [facility] Primary Care Physician: Care Physician,No Primary [Primary Care Provider] - Test Results: Test results from this visit will be discussed in further detail at your follow-up appointment, if applicable. Please Follow Up With: Ceferino Landa MD When: one week. call [phone] for appt. Proposed Discharge Date: 08/06/20
[2020-08-06 13:28] VITALS: BP 115/71; PULSE 86; RESP 18; TEMP 37.2; O2SAT 98
== END 2020-08-06 15:15 | disposition home or self-care (01) ==
LOC: SDC 14:27 → MS3 14:27
PROVIDERS: Anesthesiology; Admitting Provider Surgery; Referring Provider Surgery; Visit Provider Surgery
PROC: (CPT 19380; principal; 2020-08-04 08:40)
DX: N61.1 Abscess of the breast and nipple (principal); N65.0 Deformity of reconstructed breast; Z15.01 Genetic susceptibility to malignant neoplasm of breast; T85.44XA Capsular contracture of breast implant, initial encounter; Y82.8 Other medical devices associated with adverse incidents; Z20.828 Contact with and (suspected) exposure to other viral communicable diseases; Z80.3 Family history of malignant neoplasm of breast; Z87.891 Personal history of nicotine dependence; Z90.13 Acquired absence of bilateral breasts and nipples
CPT/HCPCS: 00402; 19380; 36415; 80048; 81025; 82962; 83735; 84134; 85027; 87070; 87075; 87102; 87176; 87205; 87206; 87426; 88305; 96365; 96366; 96372; 96375; 96376; 99218; 99251; C9803; J7120; A4216; G0378; G0379; G0463; J2405

== ENCOUNTER 2020-10-21 10:48 | Emergency (ER) | payer OTHER, SELFPAY ==
[2020-09-23 10:05] VITALS: BMI 34.7
[2020-10-21 10:49] VITALS: BP 119/80; PULSE 102; RESP 18; TEMP 36.5; O2SAT 97; BMI 34.4
--- NOTE | 2020-10-21 11:26 | CT_ITS ---
STUDY: CT CERVICAL SPINE WITHOUT CONTRAST REASON FOR EXAM: Female, 35 years old. Left sided neck pain RADIATION DOSAGE (If Supplied By Facility): CTDIvol = ( 23.19 ) mGy, DLP = ( 513.94 ) mGycm TECHNIQUE: High resolution transaxial imaging was performed without contrast material. Sagittal and coronal images were reconstructed. Individualized dose optimization techniques were used for this CT. COMPARISON: None FINDINGS: Normal craniovertebral junction. Normal anterior atlantoaxial articulation. Normal odontoid process. There is straightening of the normal cervical lordosis. Normal vertebral bodies and posterior osseous elements. C2-3: Normal endplates. Normal disc height and morphology. Normal central canal and intervertebral neuroforamina. C3-4: Normal endplates. Normal disc height and morphology. Normal central canal and intervertebral neuroforamina. C4-5: Normal endplates. Normal disc height and morphology. Normal central canal and intervertebral neuroforamina. C5-6: Normal endplates. Normal disc height and morphology. Normal central canal and intervertebral neuroforamina. C6-7: Normal endplates. Normal disc height and morphology. Normal central canal and intervertebral neuroforamina. C7-T1: Normal endplates. Normal disc height and morphology. Normal central canal and intervertebral neuroforamina. Normal visualized soft tissue structures. CT/Spine Cervical without Contras IMPRESSION: Straightening of the normal cervical lordosis. Electronically Signed: Donta Graham MD at 12:09 EDT , Service support ,
--- NOTE | 2020-10-21 11:27 | EX.ED.GENINJ ---
HPI History of Present Illness Chief Complaint: Other, Pain/Inj Narrative Narrative: 35-year-old female with longstanding intermittent neck pain presenting with acute onset of sharp neck pain on the left side of her neck which radiates into her left arm. She states that she was sleeping and rolled over and felt a pop. Patient states the pain radiates up into the left side of her occiput as well. Patient denies any direct trauma. Patient has no headache or head injury. 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 Breast pain Deformity of reconstructed breast Exposed breast implant False labor before 37 completed weeks of gestation History of bilateral breast implants previously removed Infection of breast implant Palpitations Postoperative fever Prophylactic breast removal Viral syndrome Home Medications multivitamin with minerals 1 ea PO DAILY 06/01/20 [History Last Taken Unknown] naproxen [Naprosyn] 500 mg PO BID #30 tab 10/21/20 [Rx Last Taken Unknown] tizanidine [Zanaflex] 4 mg PO Q8H PRN #14 cap 10/21/20 [Rx Last Taken Unknown] Allergy/AdvReac Type Severity Reaction Status Date / Time vancomycin Allergy Intermediate Hives Verified 10/21/20 10:49 Family History Grandmother Cancer breast and uterine Aunt Cancer multiple aunts with breast cancer Surgical History delivery delivered History of bilateral breast implants History of bilateral mastectomy History of open reduction and internal fixation (ORIF) procedure History of reconstruction of both breasts History of salpingectomy History of tonsillectomy Social History Smoking Status: Former smoker how long ago did patient quit smokin alcohol intake: current details: SOCIAL substance use type: does not use caffeine: Yes Type: coffee Number of servings: 1 additional social history: DOES NOT TAKE ASPIRIN DOES TAKE IBUPROFEN NEEDED ROS ROS ED Constitutional Constitutional ED: Denies chills, fever(s) or subjective Eyes Eyes: Denies blurry vision or change in vision ENT ENT ED: Denies rhinorrhea or sore throat Cardiovascular Cardiovascular: Denies chest pain or palpitations Respiratory/Chest Respiratory/Chest: Denies cough or dyspnea Gastrointestinal Gastrointestinal: Denies abdominal pain Genitourinary Genitourinary ED: Denies dysuria or hematuria Musculoskeletal Musculoskeletal: Reports neck pain Integumentary Denies abscess or rash Neurologic Neurologic: Reports paresthesias LUE; Denies headache(s) EXAM Physical Exam Const Vital Signs: 10/21/20 10:49 10/21/20 13:14 Temperature 97.7 F L Temperature Source Temporal Pulse Rate 102 H 88 Respiratory Rate 18 16 Blood Pressure 119/80 126/80 H Blood Pressure Mean 93 Pulse Ox 97 96 Oxygen Delivery Method Room Air Positive well nourished General Appearance ED: NAD HEENT Negative for trauma Eyes PERRL and EOMs intact bilaterally Neck Neck Narrative: Limited range of motion secondary to pain in the left side of the neck. There is no midline spinal deformity or step-off. Patient has better rotation to the left than to the right Resp normal respiratory effort and clear to auscultation bilaterally Cardio regular rhythm Rate: regular rate Back/Spine normal to inspection Extremity normal to inspection and full ROM Neuro oriented x3 Sensorium / Orientation: alert Psych mental status grossly normal Skin no rashes or lesions noted and no wounds MDM MDM MDM Narrative Medical decision making narrative: Patient presenting with left neck pain and cervical radiculopathy symptoms. I did obtain a CT of the cervical spine which shows straightening of the normal cervical lordosis however there are no other acute abnormalities. Patient was given Norflex and Toradol in the ED. She had some relief of her pain but she was still complaining of pain. I counseled her on alternating ice and heat as well as continuing NSAIDs and muscle relaxers. She states she is currently trying to establish with a PCP but has not had a first visit. Patient counseled to make this visit so she can get into physical therapy if needed. Impression: 1. Cervical strain 2. Cervical radiculopathy Radiography Diagnostic Testing: Radiology Impression Cervical Spine CT 10/21/20 11:26 IMPRESSION: Straightening of the normal cervical lordosis. Electronically Signed: Donta Graham MD at 12:09 EDT , Service support , Discharge Plan Triage Chief Complaint: Other, Pain/Inj ED Provider: Jonathan Cotter Dx/Rx/DC Orders Instructions: ED Neck Sprain or Strain Prescriptions: New tizanidine [Zanaflex] 4 mg capsule 4 mg PO Q8H PRN (Reason: muscle spasticity) Qty: 14 RF: 0 naproxen [Naprosyn] 500 mg tablet 500 mg PO BID Qty: 30 RF: 0 No Action multivitamin with minerals 1 EACH tablet 1 ea PO DAILY RF: 0 Primary Care Provider: Care Physician,No Primary Referrals: Care Physician,No Primary [Primary Care Provider] - Disposition Disposition: Home, Self Care Discharge Date/Time: 10/21/20 13:28
[2020-10-21] MEDS: Orphenadrine 60 MG/2 ML Ampul IM (11:32)
[2020-10-21] MEDS: Ketorolac 15 MG/ML Vial IM (11:32)
[2020-10-21 13:14] VITALS: BP 126/80; PULSE 88; RESP 16; O2SAT 96
== END 2020-10-21 13:28 | disposition home or self-care (01) ==
PROVIDERS: Emergency Provider Student in an Organized Health Care Education/Training Program
DX: S16.1XXA Strain of muscle, fascia and tendon at neck level, initial encounter (principal); M54.12 Radiculopathy, cervical region; X58.XXXA Exposure to other specified factors, initial encounter; Z87.891 Personal history of nicotine dependence; Z90.13 Acquired absence of bilateral breasts and nipples
CPT/HCPCS: 72125; 96372; 99283

== ENCOUNTER 2021-03-05 15:33 | Emergency (ER) | payer OTHER, SELFPAY ==
[2021-03-05 15:34] VITALS: BP 127/85; PULSE 107; RESP 18; TEMP 36.4; O2SAT 96; BMI 34.2
--- NOTE | 2021-03-05 17:13 | EDS_ITS ---
HPI HPI - GI History of Present Illness Chief Complaint: Abd Pain Informant: patient Abdominal Pain/Flank Pain Onset: Days (3) Context: Gradual Onset Timing: Intermittent and Lasts (Few seconds) Quality: Cramping and - (Squeezing) Location: Epigastric Worsened by: Nothing Relieved by: Nothing Nausea/Vomiting/Emesis GI Symptom: Positive for Nausea; Negative for Vomiting Quality: Negative for Coffee ground and Hematemesis Diarrhea/Melena/Hematochezia GI Symptom: Positive for Diarrhea; Negative for Melena and Hematochezia Associated Symptoms Associated Symptoms: Negative for Dysuria, Frequency and Hematuria Narrative Narrative: Patient presents with epigastric abdominal pain that has been intermittent over the last 3 days. Patient states it is getting more frequent. Patient states her pain is over the epigastric area. Patient states it feels like a squeezing and cramping. Patient states it lasts a few seconds and then resolves. Patient states it comes on approximately every 20 minutes. Patient states nothing makes it better nothing makes it worse. Patient admits to nausea but denies any vomiting. Patient admits to diarrhea but denies any melena or hematochezia. Patient denies any urinary complaints. 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 Breast pain Deformity of reconstructed breast Exposed breast implant False labor before 37 completed weeks of gestation History of bilateral breast implants previously removed Infection of breast implant Palpitations Postoperative fever Prophylactic breast removal Viral syndrome Home Medications hydrocodone-acetaminophen 1 tab PO Q6H PRN PRN 3 Days #10 tablet 03/05/21 [Rx Last Taken Unknown] omeprazole 20 mg PO DAILY #30 capsule 03/05/21 [Rx Last Taken Unknown] [id number] [] 1 tab PO DAILY 03/05/21 [History Last Taken Unknown] Allergy/AdvReac Type Severity Reaction Status Date / Time vancomycin Allergy Intermediate Hives Verified 03/05/21 16:52 Family History Grandmother Cancer breast and uterine Aunt Cancer multiple aunts with breast cancer Surgical History delivery delivered History of bilateral breast implants History of bilateral mastectomy History of open reduction and internal fixation (ORIF) procedure History of reconstruction of both breasts History of salpingectomy History of tonsillectomy Social History Smoking Status: Former smoker how long ago did patient quit smokin alcohol intake: current details: SOCIAL substance use type: does not use caffeine: Yes Type: coffee Number of servings: 1 additional social history: DOES NOT TAKE ASPIRIN DOES TAKE IBUPROFEN NEEDED ROS ROS ED Constitutional Constitutional ED: Reports chills and subjective; Denies fever(s) Eyes Eyes: Denies blurry vision or change in vision ENT ENT ED: Denies rhinorrhea or sore throat Cardiovascular Cardiovascular: Denies chest pain or palpitations Respiratory/Chest Respiratory/Chest: Denies cough or dyspnea Gastrointestinal Gastrointestinal: Reports abdominal pain, diarrhea and nausea; Denies vomiting Genitourinary Genitourinary ED: Denies dysuria or hematuria Musculoskeletal Musculoskeletal: Denies back pain or neck pain Integumentary Denies abscess or rash Neurologic Neurologic: Denies headache(s) or weakness Allergic/Immunologic Allergic/Immunologic ED: Denies mouth swelling or urticaria EXAM Physical Exam Const Vital Signs: 03/05/21 15:34 03/05/21 18:49 Temperature 97.5 F L Temperature Source Temporal Pulse Rate 107 H 82 Respiratory Rate 18 16 Blood Pressure 127/85 H 122/83 H Blood Pressure Mean 99 96 Pulse Ox 96 100 Oxygen Delivery Method Room Air Room Air Positive well nourished, well developed and obese General Appearance ED: well developed Nutritional Appearance: obese HEENT Reports moist mucous membranes Neck supple and no JVD Resp normal respiratory effort and clear to auscultation bilaterally Cardio regular rate, regular rhythm and no murmurs GI normal to inspection, nondistended, normoactive bowel sounds and non-distended Auscultation: normoactive bowel sounds Palpation: soft and tender epigastric and RUQ; Negative for guarding or rebound tenderness present Extremity normal to inspection General Extremety ED: Negative for edema or tenderness General Extremity: Negative for edema Neuro oriented x3, CN's II-XII intact bilaterally and no sensory deficits noted Sensorium / Orientation: alert Motor Exam: strength 5/5 throughout Psych mental status grossly normal Skin no rashes or lesions noted MDM MDM MDM Narrative Medical decision making narrative: Patient was given IV fluids, morphine, and Zofran. CBC was within normal limits. Comprehensive metabolic profile was normal. Lipase was normal. Urinalysis does not show any evidence of urinary tract infection. Patient was still having some pain on reevaluation. Patient was given a dose of Thayer. Patient was advised of her findings. Patient was given prescriptions for Thayer and omeprazole. Since her labs are all normal, I do not feel it is necessary to call in an ultrasound for a right upper quadrant ultrasound at this time. Patient will follow up with her primary care physician. If her pain persists, her primary care physician may order the right upper quadrant ultrasound as an outpatient. Patient understands this and is agreeable with the plan. All questions were answered. Lab Data Attestation: I reviewed the patient's lab results. Labs: Laboratory Results - last 24 hr 03/05/21 03/05/21 03/05/21 17:10 17:15 17:15 WBC 7.0 RBC 4.84 Hgb 14.7 Hct 42.7 MCV 88.2 MCH 30.4 MCHC 34.4 RDW Std Deviation 41.1 RDW Coeff of Tae 12.5 Plt Count 371 MPV 9.1 Immature Gran % (Auto) 0.300 Neut % (Auto) 47.9 Lymph % (Auto) 34.9 Logan % (Auto) 10.4 H Eos % (Auto) 5.8 H Baso % (Auto) 0.7 Absolute Neuts (auto) 3.4 Absolute Lymphs (auto) 2.45 Nucleated RBC % 0 Sodium 141 Potassium 3.7 Chloride 107 Carbon Dioxide 28.0 Anion Gap 6 BUN 9 Creatinine 0.86 Estim Creat Clear Calc 91.23 Est GFR (MDRD) Af Amer 96 Est GFR (MDRD) Non-Af 79 BUN/Creatinine Ratio 10.5 Glucose 101 Calcium 8.7 Total Bilirubin 0.20 AST 21 ALT 28 Alkaline Phosphatase 78 Total Protein 7.1 Albumin 3.2 Globulin 3.9 Albumin/Globulin Ratio 0.8 L Lipase 95 Urine Color Yellow Urine Clarity Clear Urine pH 6.0 Ur Specific [place] 1.025 Urine Protein 15 H Urine Glucose (UA) Normal Urine Ketones 15 H Urine Occult Blood 25 H Urine Nitrite Negative Urine Bilirubin Negative Urine Urobilinogen Normal Ur Leukocyte Esterase Negative Urine RBC 0-5 SEEN Urine WBC 0-5 SEEN Ur Squamous Epith Cells 0-5 SEEN Urine Bacteria 1+ Urine Mucus 0 SEEN Discharge Plan Triage Chief Complaint: Abd Pain ED Provider: Walt Sanchez Dx/Rx/DC Orders Clinical Impression: Epigastric abdominal pain of unknown etiology Instructions: ED Abdominal Pain Unkn Cause Fem Prescriptions: New hydrocodone-acetaminophen [hydrocodone-acetaminophen] 1 TABLET tablet 1 tab PO Q6H PRN PRN (Reason: Pain) 3 Days Qty: 10 RF: 0 omeprazole [omeprazole] 20 MG capsule 20 mg PO DAILY Qty: 30 RF: 0 No Action 1 mg Tablet 1 tab PO DAILY RF: 0 Primary Care Provider: Care Physician,No Primary Referrals: Tracie Joshi MD [STAFF PHYSICIAN] - 3-5 Days Care Physician,No Primary [Primary Care Provider] - Disposition Disposition: Home, Self Care
[2021-03-05] MEDS: 0.9% Normal Saline 1,000 ML 1000 ML IV (17:20)
[2021-03-05] MEDS: Ondansetron 4 MG/2 ML Vial IV (17:21)
[2021-03-05] MEDS: Morphine 4 MG/ML Syringe IV (17:21)
[2021-03-05 17:31] LABS: Mucous, Urine 0 SEEN /hpf (<or=2+)
[2021-03-05 17:32] LABS: Absolute Lymphocyte Count 2.45 X10^3/uL (0.83-4.51); Absolute Neutrophil Count 3.4 X10^3/uL (2.0-7.7); Basophil# 0.05 X10^3/uL; Basophil% 0.7 % (0-1); Eosinophil# 0.41 X10^3/uL; Eosinophils% 5.8 % (0-5); Hematocrit 42.7 % (37-47); Hemoglobin 14.7 g/dL (12.0-15.0); Lymphocyte # 2.45 X10^3/ul (0.83-4.51); Lymphocyte % 34.9 % (19-41); Mean Corp Hgb Conc 34.4 g/dL (32-36); Mean Corpuscular Hgb 30.4 pg (27.0-32.0); Mean Corpuscular Volume 88.2 fL (81-99); Mean Platelet Vol. 9.1 fl (6.2-12.0); Monocyte# 0.73 X10^3/uL; Monocyte% 10.4 % (0-10); NRBC Flagged by Analyzer 0 % (0-5); Neutrophil # 3.36 X10^3/uL (2.7-7.7); Neutrophil % 47.9 % (47-70); Platelet Count 371 K/mm3 (150-450); RBC Distribution Width CV 12.5 % (11.6-14.6); RBC Distribution Width SD 41.1 fl (35.1-43.9); Red Blood Count 4.84 M/mm3 (4.2-5.4)
[2021-03-05 17:33] LABS: Color, Urine Yellow (Yellow); Glucose, Dipstick Normal (Normal); Ketone-Dipstick 15 mg/dl (Negative); Leukocyte Esterase-Dipstick Negative /ul (Negative); Nitrite-Dipstick Negative (Negative); Occult Blood-Urine 25 /ul (Negative); Protein-Dipstick 15 mg/dl (Negative); Specific Gravity, Urine 1.025 (1.002-1.030); Urine Bilirubin Dipstick Negative (Negative); Urine Clarity Clear (Clear); Urine Urobilinogen Normal (Normal)
[2021-03-05 17:47] LABS: Bacteria 1+ /hpf (None Seen); Red Blood Cells-Urine 0-5 SEEN /hpf (0-5); Squamous Epithelial Cells - UA 0-5 SEEN /hpf (5-10); White Blood Cells 0-5 SEEN /hpf (0-5)
[2021-03-05 17:49] LABS: ALB/GLOB Ratio 0.8 RATIO (0.9-2.4); AST(SGOT) 21 U/L (15-37); Alanine Aminotransfer ALT/SGPT 28 U/L (13-56); Albumin, Serum 3.2 g/dL (3.2-5.0); Alkaline Phosphatase 78 U/L (45-117); Anion Gap 6 (5-15); BUN 9 mg/dL (7-18); BUN/Creat Ratio 10.5 RATIO (10-20); Calcium,Total 8.7 mg/dL (8.5-10.1); Chloride 107 mmol/L (98-107); Creatinine, Serum 0.86 mg/dL (0.55-1.02); EST Glomerular Filtration Rate 79 mL/min (>60); Est Glom Filt Rate - Afr Amer 96 mL/min (>60); Estimated Creatinine Clearance 91.23 ml/min; Globulin 3.9 g/dL (2.2-4.2); Glucose 101 mg/dL (74-106); Lipase 95 U/L (73-393); Potassium 3.7 mmol/L (3.5-5.1); Protein, Total 7.1 g/dL (6.4-8.2); Sodium Level 141 mmol/L (136-145)
[2021-03-05] MEDS: HYDROcodone Bitartrate/Apap 5/325 Tablet PO (18:41)
[2021-03-05 18:49] VITALS: BP 122/83; PULSE 82; RESP 16; O2SAT 100
== END 2021-03-05 19:08 | disposition home or self-care (01) ==
PROVIDERS: Emergency Provider Emergency Medicine
DX: R10.13 Epigastric pain (principal); R11.0 Nausea; Z87.891 Personal history of nicotine dependence; E66.9 Obesity, unspecified; Z90.13 Acquired absence of bilateral breasts and nipples
CPT/HCPCS: 80053; 81001; 83690; 85025; 99283; J7030; A4216; J2405

== ENCOUNTER → 2021-04-13 16:21 | Outpatient (CLI) | payer OTHER, SELFPAY ==
[2021-04-13 17:41] LABS: Absolute Lymphocyte Count 2.22 X10^3/uL (0.83-4.51); Absolute Neutrophil Count 1.5 X10^3/uL (2.0-7.7); Basophil# 0.03 X10^3/uL; Basophil% 0.7 % (0-1); Eosinophil# 0.19 X10^3/uL; Eosinophils% 4.1 % (0-5); Hematocrit 42.6 % (37-47); Hemoglobin 14.4 g/dL (12.0-15.0); Lymphocyte # 2.22 X10^3/ul (0.83-4.51); Lymphocyte % 48.5 % (19-41); Mean Corp Hgb Conc 33.8 g/dL (32-36); Mean Corpuscular Volume 88.8 fL (81-99); Mean Platelet Vol. 9.4 fl (6.2-12.0); Monocyte# 0.64 X10^3/uL; NRBC Flagged by Analyzer 0 % (0-5); Neutrophil # 1.48 X10^3/uL (2.7-7.7); Neutrophil % 32.3 % (47-70); Platelet Count 295 K/mm3 (150-450); RBC Distribution Width CV 12.5 % (11.6-14.6); RBC Distribution Width SD 40.9 fl (35.1-43.9); White Blood Count 4.6 K/mm3 (4.4-11.0)
[2021-04-13 17:54] LABS: Vitamin B12 327 pg/mL (211-911); Vitamin D,25 Hydroxy 25.3 ng/mL
[2021-04-13 18:06] LABS: ALB/GLOB Ratio 0.9 RATIO (0.9-2.4); AST(SGOT) 20 U/L (15-37); Alanine Aminotransfer ALT/SGPT 34 U/L (13-56); Albumin, Serum 3.4 g/dL (3.2-5.0); Alkaline Phosphatase 73 U/L (45-117); Anion Gap 9 (5-15); BUN 7 mg/dL (7-18); BUN/Creat Ratio 9.7 RATIO (10-20); Calcium,Total 8.5 mg/dL (8.5-10.1); Chloride 107 mmol/L (98-107); Cholesterol 159 mg/dL (200); Creatinine, Serum 0.72 mg/dL (0.55-1.02); EST Glomerular Filtration Rate 97 mL/min (>60); Est Glom Filt Rate - Afr Amer 117 mL/min (>60); Globulin 3.7 g/dL (2.2-4.2); Glucose 93 mg/dL (74-106); High Density Lipoprotein 75 mg/dL; Potassium 3.8 mmol/L (3.5-5.1); Protein, Total 7.1 g/dL (6.4-8.2); Sodium Level 138 mmol/L (136-145); T4 Free Direct 0.93 ng/dL (0.76-1.46); Triglycerides 115 mg/dL; Very Low Density Lipoprotein 23 mg/dL (5-40)
== END ==
PROVIDERS: Visit Provider Family Medicine
DX: R53.83 Other fatigue (principal); E66.9 Obesity, unspecified
CPT/HCPCS: 36415; 80053; 80061; 82306; 82607; 84439; 84443; 85025

== ENCOUNTER 2021-04-20 16:21 | Outpatient (CLI) | payer OTHER, SELFPAY ==
[2021-04-24 18:39] LABS: Anti-Thyroglobulin AB < 1.0 IU/mL (0.0-0.9); Thyroglobulin, Serum Qt. 32.1 ng/mL (1.5-38.5); Thyroid Peroxidase AB < 8 IU/mL (0-34)
== END 2021-04-20 23:59 | disposition short-term general hospital (02) ==
LOC: MFPLAB 16:22
PROVIDERS: PCP Family Medicine; Referring Provider Family Medicine; Visit Provider Family Medicine
DX: R79.89 Other specified abnormal findings of blood chemistry (principal)
CPT/HCPCS: 36415; 84432; 86376; 86800

== ENCOUNTER → 2021-08-04 | Outpatient (CLI) | payer OTHER, SELFPAY ==
[2021-08-04 12:42] LABS: Absolute Lymphocyte Count 2.24 X10^3/uL (0.83-4.51); Absolute Neutrophil Count 3.7 X10^3/uL (2.0-7.7); Basophil# 0.04 X10^3/uL; Basophil% 0.6 % (0-1); Eosinophil# 0.38 X10^3/uL; Eosinophils% 5.5 % (0-5); Hematocrit 41.5 % (37-47); Hemoglobin 14.1 g/dL (12.0-15.0); Lymphocyte # 2.24 X10^3/ul (0.83-4.51); Lymphocyte % 32.6 % (19-41); Mean Corpuscular Hgb 28.9 pg (27.0-32.0); Mean Platelet Vol. 9.8 fl (6.2-12.0); Monocyte# 0.46 X10^3/uL; Monocyte% 6.7 % (0-10); NRBC Flagged by Analyzer 0 % (0-5); Neutrophil # 3.74 X10^3/uL (2.7-7.7); Neutrophil % 54.3 % (47-70); Platelet Count 401 K/mm3 (150-450); RBC Distribution Width CV 13.1 % (11.6-14.6); RBC Distribution Width SD 40.8 fl (35.1-43.9); Red Blood Count 4.88 M/mm3 (4.2-5.4); White Blood Count 6.9 K/mm3 (4.4-11.0)
[2021-08-04 13:07] LABS: Vitamin D,25 Hydroxy 43.9 ng/mL
[2021-08-04 13:13] LABS: ALB/GLOB Ratio 1.1 RATIO (0.9-2.4); AST(SGOT) 13 U/L (15-37); Alanine Aminotransfer ALT/SGPT 18 U/L (13-56); Albumin, Serum 3.8 g/dL (3.2-5.0); Alkaline Phosphatase 57 U/L (45-117); Anion Gap 7 (5-15); BUN 9 mg/dL (7-18); BUN/Creat Ratio 11.8 RATIO (10-20); Calcium,Total 8.6 mg/dL (8.5-10.1); Chloride 107 mmol/L (98-107); Creatinine, Serum 0.76 mg/dL (0.55-1.02); EST Glomerular Filtration Rate 91 mL/min (>60); Est Glom Filt Rate - Afr Amer 110 mL/min (>60); Globulin 3.4 g/dL (2.2-4.2); Glucose 104 mg/dL (74-106); Potassium 4.3 mmol/L (3.5-5.1); Protein, Total 7.2 g/dL (6.4-8.2); Sodium Level 138 mmol/L (136-145); T4 Free Direct 1.04 ng/dL (0.76-1.46); Thyroid Stim Hormone (TSH) 2.28 uIU/mL (0.358-3.74)
[2021-08-07 19:42] LABS: Hemoglobin A1c 5.1 % (3.8-5.6)
== END | disposition home or self-care (01) ==
LOC: MFPLAB 10:16
PROVIDERS: PCP Family Medicine; Referring Provider Family Medicine; Visit Provider Family Medicine
DX: R73.09 Other abnormal glucose (principal); E03.8 Other specified hypothyroidism; E55.9 Vitamin D deficiency, unspecified
CPT/HCPCS: 36415; 80053; 82306; 83036; 84439; 84443; 85025

== ENCOUNTER → 2021-09-25 | Outpatient (CLI) | payer OTHER, SELFPAY ==
[2021-09-30 15:59] LABS: HPV APTIMA, High Risk Negative (Negative)
== END | disposition home or self-care (01) ==
LOC: LABSPEC 16:15
PROVIDERS: PCP Family Medicine; Visit Provider Student in an Organized Health Care Education/Training Program
DX: Z12.4 Encounter for screening for malignant neoplasm of cervix (principal)
CPT/HCPCS: 87624; 88175; G0145

== ENCOUNTER → 2021-10-04 | Outpatient (CLI) | payer OTHER, SELFPAY ==
[2021-10-05 11:22] LABS: Cancer Antigen 125 7.3 U/mL (0.0-38.1)
== END | disposition home or self-care (01) ==
LOC: WOBLAB 10:54
PROVIDERS: PCP Family Medicine; Visit Provider Student in an Organized Health Care Education/Training Program
DX: Z15.01 Genetic susceptibility to malignant neoplasm of breast (principal); Z80.3 Family history of malignant neoplasm of breast
CPT/HCPCS: 36415; 86304

== ENCOUNTER → 2021-10-25 | Outpatient (CLI) | payer OTHER, SELFPAY ==
--- NOTE | 2021-10-25 12:26 | MRI_ITS ---
STUDY: BILATERAL BREAST MR WITHOUT AND WITH CONTRAST REASON FOR EXAM: Female, 36 years old. BRCA2 positive status post mastectomy and failed nipple reconstruction. Arm./Axillary pain for 2 months. TECHNIQUE: Multi-sequence multi-echo imaging of both breasts was performed with a dedicated breast coil. T1-weighted and T2-weighted images were performed before the administration of contrast. T1-weighted images were also performed after the intravenous administration of 18 mL of Dotarem contrast. COMPARISON: None. FINDINGS: Status post bilateral mastectomy. Bilateral subpectoral saline implants with minimal folds. No evidence of intracapsular or extracapsular rupture. There are no enlarged or abnormal lymph nodes. There is no abnormality in the visualized regions of the chest or liver. MRI/Breast Bilateral W/O and W IMPRESSION: Status post bilateral mastectomy with uncomplicated bilateral subpectoral saline implants with minimal folds bilaterally. No other abnormality. CATEGORY: BIRADS Category 2: Benign. A letter regarding these results will be sent to the patient by the facility within 30 days. Electronically Signed: Enmanuel Lewis MD at 14:05 EDT ,
== END | disposition home or self-care (01) ==
PROVIDERS: PCP Family Medicine; Referring Provider Student in an Organized Health Care Education/Training Program; Visit Provider Student in an Organized Health Care Education/Training Program
DX: T85.49XS Other mechanical complication of breast prosthesis and implant, sequela (principal); Z90.13 Acquired absence of bilateral breasts and nipples; Z98.82 Breast implant status; Z15.01 Genetic susceptibility to malignant neoplasm of breast
CPT/HCPCS: 77049; A9575; A4216; C8908

== ENCOUNTER → 2022-02-02 | Outpatient (CLI) | payer OTHER, SELFPAY ==
[2022-02-02 17:48] LABS: Absolute Lymphocyte Count 3.27 X10^3/uL (0.83-4.51); Absolute Neutrophil Count 4.9 X10^3/uL (2.0-7.7); Basophil# 0.05 X10^3/uL; Basophil% 0.6 % (0-1); Eosinophils% 2.2 % (0-5); Hematocrit 42.3 % (37-47); Hemoglobin 13.9 g/dL (12.0-15.0); Lymphocyte # 3.27 X10^3/ul (0.83-4.51); Lymphocyte % 36.1 % (19-41); Mean Corp Hgb Conc 32.9 g/dL (32-36); Mean Corpuscular Hgb 29.1 pg (27.0-32.0); Mean Corpuscular Volume 88.5 fL (81-99); Mean Platelet Vol. 9.6 fl (6.2-12.0); Monocyte# 0.66 X10^3/uL; Monocyte% 7.3 % (0-10); NRBC Flagged by Analyzer 0 % (0-5); Neutrophil # 4.85 X10^3/uL (2.7-7.7); Neutrophil % 53.5 % (47-70); Platelet Count 406 K/mm3 (150-450); RBC Distribution Width CV 13.1 % (11.6-14.6); RBC Distribution Width SD 42.5 fl (35.1-43.9); Red Blood Count 4.78 M/mm3 (4.2-5.4); White Blood Count 9.1 K/mm3 (4.4-11.0)
[2022-02-02 18:43] LABS: ALB/GLOB Ratio 1.1 RATIO (0.9-2.4); AST(SGOT) 12 U/L (15-37); Alanine Aminotransfer ALT/SGPT 19 U/L (13-56); Albumin, Serum 3.9 g/dL (3.2-5.0); Alkaline Phosphatase 62 U/L (45-117); Anion Gap 9 (5-15); BUN 11 mg/dL (7-18); BUN/Creat Ratio 14.7 RATIO (10-20); Calcium,Total 9.3 mg/dL (8.5-10.1); Chloride 104 mmol/L (98-107); Creatinine, Serum 0.75 mg/dL (0.55-1.02); EST Glomerular Filtration Rate 92 mL/min (>60); Est Glom Filt Rate - Afr Amer 112 mL/min (>60); Globulin 3.4 g/dL (2.2-4.2); Glucose 79 mg/dL (74-106); Protein, Total 7.3 g/dL (6.4-8.2); Sodium Level 138 mmol/L (136-145); T4 Free Direct 0.98 ng/dL (0.76-1.46); Thyroid Stim Hormone (TSH) 2.59 uIU/mL (0.358-3.74)
[2022-02-02 18:49] LABS: Vitamin D,25 Hydroxy 100.6 ng/mL
== END | disposition home or self-care (01) ==
LOC: MFPLAB 16:19
PROVIDERS: PCP Family Medicine; Referring Provider Family Medicine; Visit Provider Family Medicine
DX: E03.8 Other specified hypothyroidism (principal); E55.9 Vitamin D deficiency, unspecified
CPT/HCPCS: 36415; 80053; 82306; 84439; 84443; 85025

== ENCOUNTER → 2022-07-23 | Outpatient (CLI) | payer BC, SELFPAY ==
[2022-07-25 11:18] LABS: Cancer Antigen 125 5.8 U/mL (0.0-38.1)
== END | disposition home or self-care (01) ==
PROVIDERS: PCP Family Medicine; Visit Provider Student in an Organized Health Care Education/Training Program
DX: Z15.02 Genetic susceptibility to malignant neoplasm of ovary (principal)
CPT/HCPCS: 36415; 86304

== ENCOUNTER 2022-10-18 09:12 | Day surgery (SDC) | payer BC, SELFPAY ==
[2022-10-12 10:00] LABS: Hematocrit 44.4 % (37-47); Hemoglobin 15.4 g/dL (12.0-15.0); Mean Corp Hgb Conc 34.7 g/dL (32-36); Mean Corpuscular Hgb 29.6 pg (27.0-32.0); Mean Corpuscular Volume 85.4 fL (81-99); Mean Platelet Vol. 8.8 fl (6.2-12.0); Platelet Count 390 K/mm3 (150-450); RBC Distribution Width CV 12.4 % (11.6-14.6); RBC Distribution Width SD 38.2 fl (35.1-43.9); White Blood Count 6.2 K/mm3 (4.4-11.0)
[2022-10-12 10:18] LABS: Magnesium 2.1 mg/dL (1.6-2.6)
[2022-10-18] VITALS (12 sets, daily range): BP systolic 100–119; BP diastolic 62–98; PULSE 71–108; RESP 16; TEMP 36.4–37; O2SAT 97–100; BMI 30.3
--- NOTE | 2022-10-18 07:21 | PCM.HP.BLA ---
History and Physical Date of Admission: 10/18/22 HPI: 37-year-old female plan for robotic assisted total laparoscopic hysterectomy, bilateral salpingo-oophorectomy, cystoscopy for risk reduction due to BRCA2 gene mutation. At this time patient desires risk reducing surgery. She has already had bilateral mastectomy. Denies headache or vision changes, chest pain or shortness of breath, nausea or vomiting, diarrhea constipation, fevers or chills. [employer] history: G4, P2 Medical history: 1. BRCA2 gene mutation 2. Depression anxiety 3. ADHD Surgical history: 1. Hysterosalpingogram 2017 2. section 2018 3. Dilation curettage 2020 4. Removal ectopic , salpingectomy laparoscopic 2016 5. Left clavicle surgery in 2003 6. Bilateral mastectomy with reconstruction in 2009 7. [place] tooth extraction Medications: 1. Bupropion 2. Adderall 3. Sertraline Allergies: Vancomycin Family history: Noncontributory, no issues with anesthesia Social history: Denies current tobacco, alcohol, drug use. Reports former tobacco use Review of system: Negative otherwise stated above Physical exam Blood pressure 119/72, heart rate 76, respiratory rate 16, temp 98.4 ?F, oxygen saturation 100% on room air General: No acute distress HEENT: Normal cephalic/atraumatic, PERRLA Cardiac: Regular rate and rhythm no murmurs rubs or gallops Respiratory: Clear to auscultation bilaterally Abdomen: Soft, nontender Extremities: No edema Neurologic: No focal deficits Musculoskeletal: Strength 5 out of 5 throughout, moves all extremities equally Assessment/plan: 37-year-old female plan for robotic assisted total laparoscopic hysterectomy, bilateral salpingo-oophorectomy, cystoscopy for risk reduction due to BRCA2 gene mutation. All risk, benefits, alternatives discussed with the patient. Risk include but are not limited to: Risk of bleeding to the point of transfusion, infection, injury to surrounding tissue including bowel/bladder potentially requiring prolonged Iqbal catheter use/major abdominal vessels, VTE, ICU admission. Patient is aware that with bilateral oophorectomy she will undergo surgical menopause. She is aware of all risks related to early menopause, and accepts those risks.
[2022-10-18 10:01] LABS: Internal QC Validated? YES +Cl - CLEAR BKGD; Pregnancy, Urine Negative Negative
[2022-10-18] MEDS: Acetaminophen 500 MG Tablet 1000 MG PO ×2 (10:10→16:59)
[2022-10-18] MEDS: Magnesium 1 GM over 15 mins IV (10:11)
[2022-10-18] MEDS: Lactated Ringers 1,000 ML 40 ML IV (10:11)
[2022-10-18] MEDS: dexAMETHasone 4 MG/ML Vial 8 MG IV (10:11)
[2022-10-18] MEDS: Gabapentin 600 MG Tablet PO (10:11)
[2022-10-18 10:59] LABS: Bedside Glucose 85 mg/dL (74-106)
--- NOTE | 2022-10-18 10:59 | DCINST_ITS ---
Discharge Instructions Diet Discharge Diet: No restrictions Activity Discharge Activity: Return to Normal Activity and May Shower May resume sexual activity in: 6 weeks Weight Bearing Status: Weight bearing as tolerated Dressing / Incision Call your doctor if your incision/area has: Continuous Slow Oozing, Increased Redness and Foul Smelling Discharge Call your doctor if you observe: Fever of 101 or Higher, Inability to urinate, Inability to have a bowel movement, Using more than 1 pad per hour, Shortness of breath, Swelling in the ankles, Chest pain and Uncontrolled pain Cleanse incision/area with: Soap & Water and Keep Dressing Clean & Dry Follow Up Care Please Follow Up With: Lor Arroyo DO When: 2 weeks post operative appointment Test Results: Test results from this visit will be discussed in further detail at your follow- up appointment, if applicable. Discharge Plan Admission Primary Reason for Your Visit: Hysterectomy Attending Provider: Lor Arroyo Primary Care Provider: JUANPABLO MCLAUGHLIN Discharge Orders/Prescriptions Prescriptions: New oxycodone 5 mg tablet 5 mg PO Q6H PRN (Reason: pain (scale score 7-10)) 4 Days Qty: 20 0RF Continued dextroamphetamine-amphetamine [Adderall XR] 15 mg capsule,extended release 24hr 35 mg PO DAILY Patient Comments: Take 2 capsules by mouth every morning for 30 days. Max Daily Amount 30 mg bupropion HCl 150 mg tablet extended release 24 hr 150 mg PO DAILY Patient Comments: Take 1 tablet by mouth every morning sertraline [Zoloft] 25 mg tablet 25 mg PO DAILY Referrals / Follow Up: JUANPABLO MCLAUGHLIN [Other] Disposition Disposition (needs filled in before D/C Order can be placed): Home, Self Care
--- NOTE | 2022-10-18 11:10 | HYST_PTH ---
PATIENT: GUERO CASTORENA [place] [facility] [place][id number] AGE/SX: 37/F ROOM: RE10/18/[address]: Dr. Lor Arroyo, : 1985 BED: DIS: 10/18/2022 SPEC #: [id number] RECD: 10/18/22 16:33 STATUS: PARVEEN PERALTA #: [id number] IRVING: 10/18/22 11:[address]: Lor Arroyo DEPT: SURGICAL PATHOLOGY RECD BY: Héctor Kim Tissues: A - Fallopian tube B - Left ovary C - Right ovary D - Uterus, NOS Procedures: Surgery Specimen Level II Surgery Specimen Level IV Surgery Specimen Level V HEADER OPERATION: CODEY, ally robotic hysterectomy, left salpingectomy, bilateral oophorectomy PRE-OP DIAGNOSIS: Risk reduction due to BRCA2 gene mutation TISSUE SUBMITTED: A - Left fallopian tube, B - Left ovary, C - Right ovary, D - Uterus and cervix MICROSCOPIC DIAGNOSIS A - Left fallopian tube, salpingectomy: Fallopian tube, no pathologic diagnosis. B - Left ovary, oophorectomy: Physiologic follicular and corpus luteal cysts. C - Right ovary, oophorectomy: Physiologic follicular and corpus luteal cysts. D - Uterus and cervix, hysterectomy: Cervix - chronic inflammation. Endometrium - secretory endometrium. Myometrium - no pathologic diagnosis. SJ: 10/22/2022 MICROSCOPIC DESCRIPTION Slides are reviewed. GROSS DESCRIPTION A - Received in fixative is one container labeled with the patient's name and designated left fallopian tube. The specimen consists of a fallopian tube including fimbrial end measuring 5.0 cm in length and 1.0 cm in diameter. Serial sections reveal unremarkable cut surfaces. The entire specimen is submitted in two cassettes. B - Received in fixative is one container labeled with the patient's name and designated left ovary. The specimen consists of a soft to cystic ovary weighing 7 gm and measuring 3.5 x 3.0 x 1.5 cm. Serial sections reveal hemorrhagic cysts, largest measuring 0.5 cm in greatest dimension. A few corpus lutea are also noted, largest measuring 1.0 cm in greatest dimension. No tubo-ovarian adhesions are seen. A few cysts filled with clear fluid are also noted. Legislative Advocate sections are submitted in four cassettes. C - Received in fixative is one container labeled with the patient's name and designated right ovary. The specimen consists of a soft to cystic ovary weighing 15 gm and measuring 5.0 x 3.0 x 2.0 cm. Serial sections reveal a few cysts filled with clear fluid. Corpus lutea are also noted measuring 0.5 cm in greatest dimension. Legislative Advocate sections are submitted in four cassettes. D - Received in fixative is one container labeled with the patient's name and designated uterus and cervix. The specimen consists of a hysterectomy specimen consisting of uterus with cervix weighing 134 gm and measuring 11.0 x 7.0 x 5.0 cm. The serosal surface is focally ragged. The ectocervical mucosa is unremarkable. The external os is slit-like in contour. The endocervical canal measures 3.5 cm in length and the endocervical mucosa is guadalupe, glistening and unremarkable. The triangular endometrial cavity measures 5.5 cm in length and up to 3.0 cm in width. The endometrium is pink-red, glistening without any mass lesion and measures 0.2 cm in thickness. Serial sectioning of the uterine wall do not reveal any mass lesion and measures up to 2.5 cm in thickness. Legislative Advocate sections are submitted in eight cassettes as follows: 1 - anterior cervix, 2 - posterior cervix, 3-5 - anterior uterine wall, 6-8 - posterior uterine wall. / ADELINE:david 10/19/2022 TC: 5 CPT: 49526, 00183 x3
--- NOTE | 2022-10-18 11:10 | FLU_PTH ---
PATIENT: GUERO CASTORENA [place] [facility] [place][id number] AGE/SX: 37/F ROOM: RE10/18/[address]: Dr. Lor Arroyo, : 1985 BED: DIS: 10/18/2022 SPEC #: [id number] RECD: 10/18/22 13:52 STATUS: PARVEEN PERALTA #: [id number] IRVING: 10/18/22 11:[address]: Lor Arroyo DEPT: CYTOLOGY RECD BY: Héctor Kim Tissues: Pelvis, NOS Procedures: Special Stain Group II Surgery Specimen Level IV Cytospin Fluid HEADER OPERATION: ERAS, lap robotic hysterectomy, BSO, cysto PRE-OP DIAGNOSIS: Risk reduction due to BRCA2 gene mutation TISSUE SUBMITTED: Pelvic washings for cytology DIAGNOSIS CYTOLOGY Pelvic washings for cytology (cytospin and cell block): Negative for malignant cells. SJ : 10/22/2022 CYTOLOGY STUDY Slides are reviewed. CYTOLOGY GROSS Received is 20 ml of turbid light pink fluid labeled with the patient's name and and designated per the requisition as pelvic washings. Submitted for cytology preparation including cell block. / david 10/19/2022 TC:4 CPT: 47510, 98338
--- NOTE | 2022-10-18 11:51 | PCM.OPRPT ---
Report of Operation Date of Procedure: 10/18/22 Pre-Operative Diagnosis: BRCA gene mutation, ovarian cancer risk reduction Post-Operative Diagnosis: BRCA gene mutation, ovarian cancer risk reduction Surgery/Procedure Performed:: Robotic assisted total laparoscopic hysterectomy, bilateral oophorectomy, left salpingectomy, lysis of adhesions, cystoscopy Description of Surgical Findings:: Normal-appearing external genitalia. Normal-appearing cervix. Normal-appearing bilateral ovaries. Small right follicular cyst on ovary. Normal-appearing left fallopian tube. Absence of right fallopian tube. Normal-appearing uterus. No lesions in the pelvis, peritoneum, bowel noted. Adhesions of omentum to anterior abdominal wall towards the midline to the left pelvis. Surgeon: Lor Arroyo radial drill press set up operator: Zane Breen Type of Anesthesia: General Specimen's removed: Uterus, cervix, left fallopian tube, bilateral ovaries, pelvic washings for cytology. All specimens sent separately and discussed with pathology to complete serial sectioning of each specimen. Estimated Blood Loss (mL): 100cc Fluids Replaced: 1200 cc IVF Description of Procedure: Indication/risk/benefits: 37-year-old female plan for robotic assisted total laparoscopic hysterectomy, bilateral salpingo-oophorectomy, cystoscopy for risk reduction due to BRCA2 gene mutation. All risk, benefits, alternatives discussed with the patient. Risk include but are not limited to: Risk of bleeding to the point of transfusion, infection, injury to surrounding tissue including bowel/bladder potentially requiring prolonged Iqbal catheter use/major abdominal vessels, VTE, ICU admission. Patient is aware that with bilateral oophorectomy she will undergo surgical menopause. She is aware of all risks related to early menopause, and accepts those risks. Procedure: Patient taken to the operating room and placed under general anesthesia. Patient placed in the dorsal lithotomy position and prepped and draped in the usual sterile fashion. Iqbal catheter placed. Weighted speculum placed in the posterior vagina and right angle retractor used to visualize the cervix. Anterior lip of the cervix grasped with a single-tooth tenaculum and cervix sequentially dilated. Uterus sounded to 10 cm. [id number] sutures placed at the 3 and 9:00 positions on the cervix. Medium uterine manipulator placed. Retractors removed. Gloves were changed and attention turned to the anterior abdominal wall. Supraumbilical incision made with scalpel and trocar placed under direct visualization. Abdomen insufflated. Right and left lower quadrant trocars placed under direct visualization. Trocar placed at Summers's point in a similar fashion. Robot docked. Inspection of the abdomen pelvis completed with findings above. Omental adhesions lysed using blunt and sharp dissection. Bilateral ureters identified. Pelvis irrigated and pelvic washings sent for cytology. Left fallopian tube grasped at the fimbriated end and removed along the mesosalpinx. Removed through trocar. Left and right round ligaments incised with monopolar cautery, laterally. Bilaterally difficult to discern anterior leaf of the broad ligament. There were notably large amounts of bladder adhesions to the anterior uterus and cervix. Slow careful dissection was completing using sharp and blunt dissection. Left utero-ovarian ligament coagulated and cut. Dissection carried down midway left uterus. Right utero-ovarian ligament coagulated and cut, dissection carried down midway to right uterus in a similar fashion. Uterus retroverted and further lysis of adhesions to create a bladder flap was completed. Bladder was backfilled with 280 cc of saline, identifying a delineation of the apex of the bladder along the vagina. Bladder drained. Uterus anteverted and posterior colpotomy made and was carried bilaterally to the level of the uterine arteries. Left uterine artery identified coagulated and cut allowing the uterine's to fall away from the colpotomy cup. Further dissection of the bladder completed, allowing the bladder to be completely away from the anterior cervix and colpotomy cup. Colpotomy carried circumferentially anteriorly. Right uterine arteries identified, coagulated and cut, allowing them to fall away from the colpotomy cup. Colpotomy completed. Uterus and cervix removed through the vagina. Left ovary grasped and IP ligament coagulated and cut at the junction of the pelvic sidewall, as lateral as possible. Left ovary removed through the vagina. Right ovary grasped and IP ligament coagulated and cut at the junction of the pelvic sidewall, as lateral as possible. Ovary removed through the vagina. There was no remaining ovarian tissue. Pelvis was irrigated. Colpotomy closed with a running V-Loc stitch starting on the right. Vaginal cuff was hemostatic. Pressure in the abdomen was lowered and cystoscopy was then completed. Cystoscopy: Iqbal catheter removed. Cystoscope placed through the urethra. Bladder inspected, noting intact bladder dome and bilateral ureteral jets. Cystoscope removed. Antonella placed along the dissection bed and vaginal cuff, which was confirmed to be hemostatic. Abdomen desufflated. Trocars removed after robot was undocked. Skin closed with subcuticular stitch and skin glue. Urine output: 400 cc clear urine Complications None Admit VTE Documentation VTE Mechan Device Prophylaxis: SCD's
[2022-10-18] MEDS: Cefazolin 2 GM in 0.9% Normal Saline 100 ML IV (12:06)
[2022-10-18] MEDS: Lubricating Jelly 60 GM Tube 30 GM (12:40)
[2022-10-18] MEDS: Ondansetron 4 MG/2 ML Vial IV (14:34)
[2022-10-18] MEDS: oxyCODONE 5 MG Tablet PO (16:59)
[2022-10-29 07:46] LABS: Cytology, Body Fluid / CSF SEE PATHOLOGY REPORT
== END 2022-10-18 19:18 | disposition home or self-care (01) ==
LOC: SDC 09:16 → AC 09:17
PROVIDERS: Anesthesiology; Referring Provider Student in an Organized Health Care Education/Training Program; Visit Provider Student in an Organized Health Care Education/Training Program
PROC: 0UT94ZZ Resection of Uterus, Percutaneous Endoscopic Approach (ICD-10-PCS; CPT 58552; principal; 2022-10-18 10:50)
DX: N83.11 Corpus luteum cyst of right ovary (principal); F90.9 Attention-deficit hyperactivity disorder, unspecified type; F32.A Depression, unspecified; F41.9 Anxiety disorder, unspecified; N83.12 Corpus luteum cyst of left ovary; Z15.09 Genetic susceptibility to other malignant neoplasm; Z80.3 Family history of malignant neoplasm of breast; Z87.891 Personal history of nicotine dependence; Z40.01 Encounter for prophylactic removal of breast; Z98.86 Personal history of breast implant removal; Z90.13 Acquired absence of bilateral breasts and nipples
CPT/HCPCS: 58552; 52000; S2900; 00840; 36415; 81025; 82962; 83735; 85027; 86850; 86900; 86901; 88108; 88302; 88305; 88307; 88313; J7120; J2405; J3475